=== PATIENT | male | born 1965 | race Caucasian/White ===

== ENCOUNTER 2017-02-17 15:16 | Inpatient (IN) | payer MEDICARE, MEDICAID ==
[2017-02-17 16:01] LABS: Urine Bilirubin Negative (Negative); Urine Glucose Negative (Negative); Urine Nitrite Negative (Negative)
[2017-02-17 16:11] LABS: Hematocrit 49 % (42-52); Hemoglobin 16.2 g/dl (14.0-18.0); Mean Corpuscular HGB Conc 33 g/dl (31-36); Mean Corpuscular Hemoglobin 30 pg (27-31); Mean Corpuscular Volume 91 fL (80-94); Mean Platelet Volume 8 um3 (7.4-10.4); Red Blood Count 5.35 10^6/ul (4.0-5.4); Red Cell Distribution Width 14 % (10.5-15); White Blood Count 8.1 10^3/ul (3.5-10.8)
[2017-02-17 16:27] LABS: ALT 40 U/L (7-52); AST 48 U/L (13-39); Albumin 4.6 g/dL (3.2-5.2); Alkaline Phosphatase 68 U/L (34-104); Anion Gap 9 mmol/L (2-11); BUN/Creatinine Ratio 7.8 (8-20); Blood Urea Nitrogen 5 mg/dL (6-24); CO2 Carbon Dioxide 21 mmol/L (22-32); Calcium 9.1 mg/dL (8.6-10.3); Chloride 105 mmol/L (101-111); EGFR African American 168.9 (>60); EGFR Non-African American 131.3 (>60); Globulin 2.5 g/dL (2-4); Glucose 135 mg/dL (70-100); Potassium 3.9 mmol/L (3.5-5.0); Sodium 135 mmol/L (133-145); Total Protein 7.1 g/dL (6.4-8.9)
[2017-02-17 17:24] LABS: Acetaminophen < 15 mcg/mL; Alcohol 298 mg/dL (<10); Salicylate < 2.50 mg/dL (<30)
[2017-02-17 17:34] LABS: TSH (Thyroid Stimulating Horm) 0.34 mcIU/mL (0.34-5.60)
--- NOTE | 2017-02-17 18:50 | ED ---
Adenike Faria Thomas, scribed for Gaston Dinero MD on 02/17/17 at 1544 . Psychiatric Complaint - HPI Summary HPI Summary: The pt is a 51 y/o M presenting to the ED accompanied by socially responsible investment adviser c/o SI without a plan. He reports auditory and visual hallucinations. He says that these voices are not telling him to hurt himself or others. He reports that he has consumed alcohol today. He denies HI. He is on medication for schizophrenia but he does not remember the names of his medication. PMHx: schizophrenia, COPD. PSHx: appendectomy. SHx: smoking, occasional drinking, all of the above illicit drugs. FHx: unknown (adopted). - History Of Current Complaint Chief Complaint: EDMentalHealth Time Seen by Provider: 02/17/17 15:38 Hx Obtained From: Patient, Other: - socially responsible investment adviser accompanies him Onset/Duration: Lasting Hours, Still Present Timing: Constant Character: Depressed Aggravating Factor(s): Nothing Alleviating Factor(s): Nothing Related History: Positive For: Prior Psychiatric Issues Has Suicidal: Reports: Thoughts. Denies: With A Plan Has Homicidal: Denies: Thoughts - Allergies/Home Medications Allergies/Adverse Reactions: Allergies Allergy/AdvReac Type Severity Reaction Status Date / Time No Known Allergies Allergy Verified 05/27/16 10:42 Home Medications: Home Medications [place] Carbonate TAB* 600 mg PO BID 02/17/17 [History Confirmed 02/17/17] Paliperidone SUSTENNA* [Invega Sustenna*] 156 mg IM MONTHLY 02/17/17 [History Confirmed 02/17/17] clonazePAM TAB(*) [KlonoPIN TAB(*)] 1 mg PO DAILY PRN 02/17/17 [History Confirmed 02/17/17] PMH/Surg Hx/FS Hx/Imm Hx Previously Healthy: No Cardiovascular History: Denies: Other Cardiovascular Problems/Disorders Respiratory History: Reports: Hx Chronic Obstructive Pulmonary Disease (COPD) Psychiatric History: Reports: Hx Schizophrenia - Surgical History Surgery Procedure, Year, and Place: appendectomy Infectious Disease History: Denies: Traveled Outside the [place] in Last 30 Days - Family History Known Family History: Positive: Unknown - adopted - Social History Alcohol Use: Occasionally Substance Use Type: Reports: Other - "all of the above" Hx Tobacco Use: Yes Smoking Status (MU): Heavy Every Day Tobacco Smoker Review of Systems Constitutional: Negative Negative: Fever Eyes: Negative ENT: Negative Cardiovascular: Negative Respiratory: Negative Gastrointestinal: Negative Genitourinary: Negative Musculoskeletal: Negative Skin: Negative Neurological: Negative Positive: Other - POS: SI without a plan, auditory hallucinations, visual hallucinations; NEG: HI All Other Systems Reviewed And Are Negative: Yes Physical Exam - Summary Physical Exam Summary: The patient is well-nourished in no acute distress and in no acute pain. The skin is warm and dry and skin color reflects adequate perfusion. There is an abrasion to his L [place]. HEENT: The head is normocephalic and atraumatic. The pupils are equal and reactive. The conjunctivae are clear and without drainage. Nares are patent and without drainage. Mouth reveals moist mucous membranes and the throat is without erythema and exudate. The external ears are intact. The teeth are in poor repair. Neck is supple with full range of motion and non-tender. There are no carotid bruits. There is no neck vein distension. Respiratory: Chest is non-tender. Lungs are clear to auscultation and breath sounds are symmetrical and equal. Cardiovascular: Hear is regular rate and rhythm. There is no murmur or rub auscultated. There is no peripheral edema and pulses are symmetrical and equal. Abdomen: The abdomen is soft and non-tender. Musculoskeletal: There is no back pain noted. Extremities are non-tender with full range of motion. There is good capillary refill. There is no peripheral edema or calf tenderness elicited.There is no evidence of trauma to arms. Neurological: Patient is alert and oriented to person, place and time. The patient has symmetrical motor strength in all four extremities. Psychiatric: He is depressed and suicidal. Triage Information Reviewed: Yes Vital Signs On Initial Exam: Initial Vitals Temp Pulse Resp BP Pulse Ox 98.9 F 102 20 133/94 95 02/17/17 15:20 02/17/17 15:20 02/17/17 15:20 02/17/17 15:20 02/17/17 15:20 Vital Signs Reviewed: Yes Diagnostics - Vital Signs Vital Signs Temp Pulse Resp BP Pulse Ox 02/17/17 15:20 98.9 F 102 20 133/94 95 - Laboratory Lab Results: Lab Results 02/17/17 02/17/17 02/17/17 Range/Units 15:40 15:55 15:55 WBC 8.1 (3.5-10.8) 10^3/ul RBC 5.35 (4.0-5.4) 10^6/ul Hgb 16.2 (14.0-18.0) g/dl Hct 49 (42-52) % MCV 91 (80-94) fL MCH 30 (27-31) pg MCHC 33 (31-36) g/dl RDW 14 (10.5-15) % Plt Count 220 (150-450) 10^3/ul MPV 8 (7.4-10.4) um3 Neut % (Auto) 60.2 (38-83) % Lymph % (Auto) 31.5 (25-47) % [place] % (Auto) 6.7 (1-9) % Eos % (Auto) 1.4 (0-6) % Baso % (Auto) 0.2 (0-2) % Absolute Neuts (auto) 4.9 (1.5-7.7) 10^3/ul Absolute Lymphs (auto) 2.5 (1.0-4.8) 10^3/ul Absolute Monos (auto) 0.5 (0-0.8) 10^3/ul Absolute Eos (auto) 0.1 (0-0.6) 10^3/ul Absolute Basos (auto) 0 (0-0.2) 10^3/ul Absolute Nucleated RBC 0.01 10^3/ul Nucleated RBC % 0.1 Sodium 135 (133-145) mmol/L Potassium 3.9 (3.5-5.0) mmol/L Chloride 105 (101-111) mmol/L Carbon Dioxide 21 L (22-32) mmol/L Anion Gap 9 (2-11) mmol/L BUN 5 L (6-24) mg/dL Creatinine 0.64 L (0.67-1.17) mg/dL Est GFR ( Amer) 168.9 (>60) Est GFR (Non-Af Amer) 131.3 (>60) BUN/Creatinine Ratio 7.8 L (8-20) Glucose 135 H (70-100) mg/dL Calcium 9.1 (8.6-10.3) mg/dL Total Bilirubin 0.60 (0.2-1.0) mg/dL AST 48 H (13-39) U/L ALT 40 (7-52) U/L Alkaline Phosphatase 68 (34-104) U/L Total Protein 7.1 (6.4-8.9) g/dL Albumin 4.6 (3.2-5.2) g/dL Globulin 2.5 (2-4) g/dL Albumin/Globulin Ratio 1.8 (1-3) TSH 0.34 (0.34-5.60) mcIU/mL Urine Color Straw Urine Appearance Clear Urine pH 6.0 (5-9) Ur Specific [place] 1.003 L (1.010-1.030) Urine Protein Negative (Negative) Urine Ketones Negative (Negative) Urine Blood Negative (Negative) Urine Nitrate Negative (Negative) Urine Bilirubin Negative (Negative) Urine Urobilinogen Negative (Negative) Ur Leukocyte Esterase Negative (Negative) Urine Glucose Negative (Negative) Salicylates < 2.50 (<30) mg/dL Acetaminophen < 15 mcg/mL Serum Alcohol 298 H (<10) mg/dL Result Diagrams: 02/17/17 15:55 02/17/17 15:55 Lab Statement: Any lab studies that have been ordered have been reviewed, and results considered in the medical decision making process. Course/Dx - Course Course Of Treatment: Cleared for MHE as of 23:59 02/17/2017. Assessment/Plan: The pt is a 51 y/o M presenting to the ED accompanied by socially responsible investment adviser c/o SI without a plan. He reports auditory and visual hallucinations. He says that these voices are not telling him to hurt himself or others. He reports that he has consumed alcohol today. He denies HI. He is on medication for schizophrenia but he does not remember the names of his medication. PMHx: schizophrenia, COPD. PSHx: appendectomy. SHx: smoking, occasional drinking, all of the above illicit drugs. FHx: unknown (adopted). Bloodwork shows serum alcohol 298, CO2 21, BUN 5, Creatinine 0.64, BUN/ Creatinine 7.8, Glucose 135, AST 48. UA is negative. Patient is diagnosed with acute alcohol intoxication and psychosis. He is cleared for MHE as of 23:59 08/05. Patient will be signed out pending MHE. - Differential Dx/Clinical Impression Differential Diagnosis/HQI/PQRI: Positive: Acute Psychosis, Alcohol Intoxication , Depression, Suicidal Ideation Provider Diagnosis: Acute alcohol intoxication, Psychosis Discharge - Discharge Plan Condition: Fair Disposition: OTHER Discharge Disposition Comment: Signed out from Dr. Dinero. Pending E. Referrals: Juan Espinoza MD [Primary Care Provider] - The documentation as recorded by the Adenike nation Thomas accurately reflects the service I personally performed and the decisions made by me, Gaston Dinero MD.
[2017-02-18] MEDS ORDERED: Acetaminophen TAB* 325 MG PO PRN (09:16)
[2017-02-18] MEDS ORDERED: Al Hydrox/Mg Hydrox/Simet LIQ* 30 ML UDC PO PRN (09:16)
[2017-02-18] MEDS ORDERED: hydrOXYzine HCL TAB* 50 MG PO PRN (09:17)
[2017-02-18 11:17] LABS: Benzodiazepine Urine Screen None Detected (None Detect)
--- NOTE | 2017-02-18 12:08 | HP ---
H&P (Free Text) History and Physical: HPI: ---- Patient is a 51yo male with PPHx significant for Bipolar 1 d/o, MRE mixed w/PFs r/o Schizoaffective d/o, Bipolar type MRE mixed who presented to the [facility] ED, escorted by his outpt SW from his MH provider's office after he reported worsening depressive symptoms, SI w/ plan to jump out in front of moving cars, and symptoms of thought insertion & delusional thinking. Patient reports noticing his mood dropping approximately 2 weeks ago. Patient reports no identifiable trigger and stated, "they come on their own". Patient reports dropping mood associated with poor energy, poor motivation, decreased attention to hygiene and to the cleanliness of his things. Patient reports decreased interest in things he normally enjoys, and social isolation. Patient also reports poor concentration and endorses that poor sleep is a chronic issue. Patient denies anger outbursts and anhedonia. Patient reports in association with this episode of depressive symptoms he also experiences "mystical ecstasy", which he describes as feeling elevated mood usually in association with music. He reports his mood can become expansive and euphoric while in a depressed state. Patient reports also associated with these episodes of mixed symptoms, experiences of delusional thought. Patient reports he naturally has a creative and imaginative mind, but during these episodes he believes "people turn into demons and angels". He also reports thoughts being inserted in his mind by these demons or angels which he identifies as not his own. He reports they usually send him on a "quest for my mother in the underworld". Patient reports his mother is there because she committed suicide. Patient reports hx of >5 suicide attempts, usually by cutting, last in 2011. Patient reports a long period of sobriety, which ended 1 week ago. He reports over the last 1 weeks he has drank 16-24 16oz beers daily. Patient reports a hx of severe alcohol use d/o symptoms, drinking daily, associated with DUI in 1999, and 10 inpatient SATPs. Patient reports last drinking on a daily basis over 3yrs ago. Patient reports hx of DTs. Patient denies hx of alcohol w/d seizure. Patient reports he has been compliant with monthly NUNO Invega Sustenna. Currently on 156mg IM qMonthly, last given on 01/21/17. Patient reports he has been non-compliant with his rx'd Lillie 600mg po BID x 2 months. He reports feeling he was getting no benefit. Patient though is willing to start a re-trial of Lillie at 450mg po BID. Patient is amenable to Invega Sustenna NUNO at increased dose from 156mg to 234mg. His next injection was due on 02/17/17 per [facility] for Dr. Huber. Will order for tomorrow. Patient denies Alcohol w/d symptoms. He currently denies SI/HI and AH/VH. Past Psych Hx: Inpt - Patient reports hx of >5 inpatient psychiatric hospitalizations Outpt - Patient is seen by Dr. Huber at [facility] Dx - Schizophrenia, Alcohol use d/o Psychotropic med hx - Lillie(currently on 600mg po BID, reports non-compliance ), Depakote(reports hx of no benfit), Invega Sustenna(currently on 156mg IM, last given on 01/21/17) Suicide attempt Hx / SIB Hx: -Patient reports >5 suicide attempts, most by cutting, last in 2011. -Patient denies hx of SIB. Trauma Hx: -Patient denies hx of childhood emotional, physical, and sexual abuse Substance Hx: -Patient reports recent alcohol use d/o symptoms. He reports over the last 1 weeks he has drank 16-24 16oz beers daily. -Patient reports a hx of severe alcohol use d/o symptoms, drinking daily, associated with DUI in 1999, and 10 inpatient SATPs. -Patient reports last drinking on a daily basis over 3yrs ago. -Patient reports hx of DTs. -Patient denies hx of alcohol w/d seizure. -Patient denies use of illicit substances. Medical Hx: COPD Surgical Hx: Appendectomy Allergies: --------- NKDA Family Hx: Patient reports he was adopted at age 1yo after he and his siblings were given up. Patient has no knowledge of his father's MH or HIMANSHU hx. He has no knowledge of his father's side of the family. Patient reports his mother committed suicide in her 40's by hanging. Patient reports many family members on his mother's side deal with depression and anxiety symptoms. Patient reports no knowledge of other family members who have committed suicide. 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 He's lived there since 09/2016 -Patient denies access to firearms -Patient denies stockpiles of old Rx pills at home Home medications: Home Medications Medication Instructions Recorded Confirmed Type [place] Carbonate TAB* 600 mg PO BID 02/17/17 02/17/17 History Paliperidone SUSTENNA* [Invega 156 mg IM MONTHLY 02/17/17 02/17/17 History Sustenna*] clonazePAM TAB(*) [KlonoPIN TAB(*)] 1 mg PO DAILY PRN 02/17/17 02/17/17 History VITALS: 02/17/17 02/17/17 02/18/17 15:20 16:29 01:09 Temperature 98.9 F 97.6 F 100.5 F Pulse Rate 102 92 101 Respiratory 20 16 16 Rate Blood Pressure 133/94 126/74 113/69 (mmHg) O2 Sat by Pulse 95 92 93 Oximetry 02/18/17 02/18/17 10:54 12:14 Temperature 98.8 F Pulse Rate 56 Respiratory 16 16 Rate Blood Pressure 122/74 (mmHg) O2 Sat by Pulse 97 Oximetry LABS: ----- Laboratory Tests 02/17/17 02/17/17 02/17/17 15:40 15:55 15:55 WBC 8.1 RBC 5.35 Hgb 16.2 Hct 49 MCV 91 MCH 30 MCHC 33 RDW 14 Plt Count 220 MPV 8 Neut % (Auto) 60.2 Lymph % (Auto) 31.5 [place] % (Auto) 6.7 Eos % (Auto) 1.4 Baso % (Auto) 0.2 Absolute Neuts (auto) 4.9 Absolute Lymphs (auto) 2.5 Absolute Monos (auto) 0.5 Absolute Eos (auto) 0.1 Absolute Basos (auto) 0 Absolute Nucleated RBC 0.01 Nucleated RBC % 0.1 Sodium 135 Potassium 3.9 Chloride 105 Carbon Dioxide 21 L Anion Gap 9 BUN 5 L Creatinine 0.64 L Est GFR ( Amer) 168.9 Est GFR (Non-Af Amer) 131.3 BUN/Creatinine Ratio 7.8 L Glucose 135 H Calcium 9.1 Total Bilirubin 0.60 AST 48 H ALT 40 Alkaline Phosphatase 68 Total Protein 7.1 Albumin 4.6 Globulin 2.5 Albumin/Globulin Ratio 1.8 TSH 0.34 Urine Color Straw Urine Appearance Clear Urine pH 6.0 Ur Specific [place] 1.003 L Urine Protein Negative Urine Ketones Negative Urine Blood Negative Urine Nitrate Negative Urine Bilirubin Negative Urine Urobilinogen Negative Ur Leukocyte Esterase Negative Urine Glucose Negative Salicylates < 2.50 Urine Opiates Screen Acetaminophen < 15 Ur Barbiturates Screen Ur Phencyclidine Scrn Ur Amphetamines Screen U Benzodiazepines Scrn Urine Cocaine Screen U Cannabinoids Screen Serum Alcohol 298 H 02/18/17 10:21 WBC RBC Hgb Hct MCV MCH MCHC RDW Plt Count MPV Neut % (Auto) Lymph % (Auto) [place] % (Auto) Eos % (Auto) Baso % (Auto) Absolute Neuts (auto) Absolute Lymphs (auto) Absolute Monos (auto) Absolute Eos (auto) Absolute Basos (auto) Absolute Nucleated RBC Nucleated RBC % Sodium Potassium Chloride Carbon Dioxide Anion Gap BUN Creatinine Est GFR ( Amer) Est GFR (Non-Af Amer) BUN/Creatinine Ratio Glucose Calcium Total Bilirubin AST ALT Alkaline Phosphatase Total Protein Albumin Globulin Albumin/Globulin Ratio TSH Urine Color Urine Appearance Urine pH Ur Specific [place] Urine Protein Urine Ketones Urine Blood Urine Nitrate Urine Bilirubin Urine Urobilinogen Ur Leukocyte Esterase Urine Glucose Salicylates Urine Opiates Screen None detected Acetaminophen Ur Barbiturates Screen None detected Ur Phencyclidine Scrn None detected Ur Amphetamines Screen None detected U Benzodiazepines Scrn None detected Urine Cocaine Screen None detected U Cannabinoids Screen None detected Serum Alcohol PHYSICAL EXAM: GEN - in NAD, looks stated age, thin, long ren hair and lizarraga. HEENT - NC/AT, EOEMI, no lesions or discharge noted, conjunctivae clear NECK - supple, no JVD, no LAD, CARDIAC - S1/S2, no discernable murmurs ABD - (+) BS x 4 quad, non-tender EXT - no edema, no lesions MUSCULOSKEL - 5/5 muscle strength in all extremities SKIN - intact, no lesions NEURO - CN 2-12, steady gait MSE: ----- Appearance -thin build male, looks older than stated age, long ren hair and lizarraga, fair hygeine, in NAD Behavior - calm, cooperative Speech - RRR, prosody wnl Eye Contact - good Mood - "anxious" Affect - depressed TP - linear and GD TC - concerned with worsening depression and psychotic symptoms Perception - Patient denies AH/VH. He endorses (+) thought insertion and delusional thinking Orientation - A&Ox3 Cognition - intact Insight - poor Judgement - poor SI / HI - present on admission, currently denies both ASSESSMENT: 1. Bipolar 1 d/o, MRE mixed w/PFs r/o Schizoaffective d/o, Bipolar type MRE mixed PLAN: ------ 1. Continue admission to [facility] for safety and symptom mx. 2. Continue Lillie, but a lower dose of 450mg po BID due to patient's reports of med non-compliance over the last 2 months. 3. Continue Invega Sustenna NUNO at increased dose from 156mg to 234mg, with next injection due due on 02/17/17 and qMonthly. Will order for tomorrow. 4. Continue compiling collateral information from MH providers and [facility] staff. 5. Patient to participate in milieu activities and groups.
[2017-02-18 13:16] LABS: Lithium < 0.10 mmol/L (0.6-1.2)
[2017-02-18] MEDS: Lithium Carbonate ER* 450 MG TAB.ER PO SCH (20:35)
[2017-02-18] MEDS ORDERED: Lithium Carbonate TAB* 300 MG PO SCH (21:00)
[2017-02-19] MEDS ORDERED: Paliperidone SUSTENNA* 234 MG/1.5 ML IM ONE (09:00)
[2017-02-19] MEDS: Lithium Carbonate ER* 450 MG TAB.ER PO SCH ×2 (09:38→20:42)
[2017-02-19] MEDS ORDERED: Acetaminophen TAB* 325 MG PO PRN (10:28)
[2017-02-19] MEDS ORDERED: Thiamine IV* 100 MG/ML 2 ML VIAL IM ONE (10:28)
--- NOTE | 2017-02-19 11:53 | PN ---
MHU: Group Therapy Note - Service Type Service Type: [id number] Group Psychotherapy - Cognitive Behavioral Group Therapy ( CBT):Patient was attentive and participatory in CBT programming this morning, and remained in good behavioral control. Patient expressed positive insights regarding relevant treatment interventions and goals.
--- NOTE | 2017-02-19 11:56 | RAD ---
INDICATION: Fever COMPARISON: Similar chest x-ray dated March 07, 2016 TECHNIQUE: PA and lateral views of the chest were obtained. FINDINGS: The heart and mediastinum are normal in size and contour. The lungs are grossly clear. There is no evidence of large pleural effusion. Visualized bones are normal for the patient's age. There is no radiographic evidence of free air beneath the diaphragm IMPRESSION: No radiographic evidence of acute cardiopulmonary disease.
[2017-02-19] MEDS ORDERED: LORazepam TAB(*) 1 MG PO ONE (12:03)
--- NOTE | 2017-02-19 12:13 | PN ---
Subjective - Subjective Service Type: [id number] Hosp care 25 min moderate complexity Subjective: Patient noted to be calm, sitting alone in the milieu. He is cooperative and engages the interview. Patient is A&O x3, linear and GD in TP and noted to be very insightful about the pattern of his bipolar symptoms. Patient reports his mood continues to be "dark". He reports being in "emotional pain". He is aware that his affect is observed to be full and his speech rapid/over productive at times. He reports this is the nature of his depression. He again reported being in "emotional dispair". He stated, "I can't find a good reason for it". He reports while in the hospital he is more focused on his depression as in "nature" he can find "ecstasy". He stated, "there is no ecstasy in here". Patient reports his periods of "ecstasy" are usually associated with music or nature. He reports these are "enhanced with alcohol". Patient is aware alcohol is a depressant and reports his highs are higher, but his lows are lower. He reports his delusions start when he gets too low. Patient reports again daily use of alcohol for the last 1 week, prior to this last week, he reports drinking 1 day a week for the prior 2 months, and sobriety of a few months before that. Patient asked about his hx of DTs. He reported 1 episode of DTs. He described it occurring after drinking 16-24 beers daily for >4months. He reported at 1-2 days after stopping alcohol, he was going to be allowed to discharge, as he was not sweating, tremulous, or agitated. He reports a "smart doctor" noted his vitals and started him on Ativan. He reports though within 24hrs he was in DTs, agitated(requiring restraint) and experiencing VHs of bugs on the michelle and THs of bugs crawling on him. He reports being in the ICU after. Today patient reports some mild sweating under his arms and on his brow. He reports he is able to mask his anxiety, stating, "I've been dealing with this for so long". He reports significant anxiety and agitation. He reports he is ready to "go off at any time". He was informed his BP and HR were wnl, but he did have a mild fever and his NUNO would be held until an eval for FUO could be done. He is amenable to the Cxray. He is also amenable to WAM monitoring and a 1 time dose of Ativan. Patient denies RAMIREZ, CP, and Abd pain. Again he is A&Ox3 with linear in TP, insightful and rational. Patient endorses ongoing delusional thought which is distressing. He denies SI/HI and AH. He does report VH and TH of bugs crawling on him, but reports they are like shadows in his periphery which when he inspects, he realizes they are not bugs. Objective - Appearance Appearance: Thin Framed Dysmorphic Features: No Hygiene: Normal Grooming: Fairly Well Kept - Behavior Psychomotor Activities: Normal Exhibits Abnormal Movement: No - Attitude and Relatedness Attitude and Relatedness: Cooperative Eye Contact: Good - Speech Quality: Unpressured Latencies: Normal Quantity: Copious - Mood Patient's Decription of Mood: "Anxious" - Affect Observed Affect: Good Affect Consistent with: Euthymia - Thought Process Patient's Thought Process: Coherent Thought Content: Yes Paranoid Ideation, No Passive Wish, No Suicidal Planning, No Homicidal Ideation - Sensorium Experiencing Hallucinations: No, Sensorium is Clear Type of Hallucinations: Visual: No, Auditory: No, Command: No - Level of Consciousness Level of Consciousness: Alert Orientation: Yes Intact, Yes Orientated to Time, Yes Orientated to Place, Yes Orientated to Person - Impulse Control Impulse Control: Intact - Insight and Judgement Insight and Judgement: Good - Group Participation Particating in Group Activities: Yes - Medication Management Medication Management Adherence: Yes Assessment - Assessment Merits Inpatient Hospitalization: For Immediate Safety, For Stabilization Inpatient DSM-IV Dx: 1. Bipolar 1 d/o MRE mixed w/PFs. 2. Alcohol use d/o, severe Plan - Plan Treatment Plan: Name: ROSE LUIS Birthdate: 1965 [id number] 1. Continue admission to [facility] for safety and symptom mx. 2. Continue [place] 450mg po BID for mood stabilization. 3. Invega Sustenna 234mg held today due to w/d symptoms. Will monitor on WAM x 24hrs and consider Thursday PM administration. 4. Connect patient with oupt. alcohol treatment program post-discharge. 5. Continue compiling collateral information from MH providers and [facility] staff. 6. Patient to participate in milieu activities and groups. Continued Medication Management: Start Medication Medications: Current Medications Acetaminophen (Tylenol Tab*) 650 mg PO Q4H PRN PRN Reason: for pain; or Temp >101 F Last Admin: 02/19/17 09:39 Dose: 650 mg Al Hydrox/Mg Hydrox/Simethicone (Maalox Plus*) 30 ml PO Q4H PRN PRN Reason: INDIGESTION Folic Acid (Folvite Tab*) 1 mg PO DAILY [facility] Hydroxyzine HCl (Atarax Tab*) 50 mg PO Q6H PRN PRN Reason: AGITATION/ANXIETY/INSOMNIA [place] Carbonate ([place] Carbonate Er Tab*) 450 mg PO BID LETTY Last Admin: 02/19/17 09:38 Dose: 450 mg Lorazepam (Ativan Tab(*)) 0 - 6 mg PO .[facility] PROTOCOL LETTY PRN Reason: Protocol Lorazepam (Ativan Tab(*)) 2 mg PO ONCE ONE Stop: 02/19/17 12:04 Multivitamins/Minerals (Theragran/Minerals Tab*) 1 tab PO DAILY [facility] Thiamine HCl (Vitamin B-1 Tab*) 100 mg PO DAILY LETTY - Discharge Plan Discharge Plan: Drug/Alcohol Rehab Outpatient Program: [facility]
[2017-02-19] MEDS ORDERED: LORazepam TAB(*) 1 MG PO SCH (13:00)
[2017-02-20] MEDS: Thiamine TAB* 100 MG TAB PO SCH (08:31)
[2017-02-20] MEDS: Lithium Carbonate ER* 450 MG TAB.ER PO SCH ×2 (08:31→20:51)
[2017-02-20] MEDS: Multivitamins/Minerals TAB PO SCH (08:31)
[2017-02-20] MEDS: Folic Acid TAB* 1 MG PO SCH (08:32)
--- NOTE | 2017-02-20 10:22 | PN ---
Subjective - Subjective Service Type: 13439 Hosp care 15 min low complexity Subjective: Patient lying in bed on my approach. He continues to be linear and GD in TP. He continues to be insightful regarding the course of his bipolar and alcohol w/d symptoms. He is though more easily agitated this morning. He was noted to have become belligerent with staff last night after scoring too low on WAM assessment to receive an Ativan dose. Patient refused WAM assessments after that exchange and has submitted request to discharge. Patient denies RAMIREZ, CP, Ad pain. He reports improved sleep last night. He denies AH,VH,TH. He denies SI/HI. Patient does report ongoing depression and ongoing delusional thoughts noted on admission. Patient allowed re-start of WAM monitoring. He did not score, but reported diarrhea. He was informed WAM would be discontinued, PRN loperamide would be started, and his scheduled IM Invega sustenna injection would be administered today as he seems to be out of w/d and risk of developing DTs. Patient is amenable. Patient is aware he will be staying the weekend for monitoring of mood and delusions. He is aware PRN Ativan is ordered. Objective - Appearance Appearance: Well Developed/Nourished, Thin Framed Dysmorphic Features: No Hygiene: Normal Grooming: Fairly Well Kept - Behavior Psychomotor Activities: Normal Exhibits Abnormal Movement: No - Attitude and Relatedness Attitude and Relatedness: Cooperative Eye Contact: Fair - Speech Quality: Unpressured Latencies: Normal Quantity: Copious - Mood Patient's Decription of Mood: "Upset" - Affect Observed Affect: Tense Affect Consistent with: Dysphoria - Thought Process Patient's Thought Process: Coherent Thought Content: No Passive Wish, No Suicidal Planning, No Homicidal Ideation, No Paranoid Ideation - Sensorium Experiencing Hallucinations: No, Sensorium is Clear Type of Hallucinations: Visual: No, Auditory: No, Command: No - Level of Consciousness Level of Consciousness: Alert Orientation: Yes Intact, Yes Orientated to Time, Yes Orientated to Place, Yes Orientated to Person - Impulse Control Impulse Control: Intact - Insight and Judgement Insight and Judgement: Fair - Group Participation Particating in Group Activities: Yes - Medication Management Medication Management Adherence: Yes Assessment - Assessment Merits Inpatient Hospitalization: For Immediate Safety, For Stabilization Inpatient DSM-IV Dx: 1. Bipolar 1 d/o MRE mixed w/PFs. 2. Alcohol use d/o, severe Plan - Plan Treatment Plan: Name: ROSE LUIS Birthdate: 1965 [id number] 1. Continue admission to [facility] for safety and symptom mx. 2. Continue [place] 450mg po BID for mood stabilization. 3. Will D/C WAM due to lack of scoring and reports of no w/d symptoms outside of loose stools. 4. Will start Loperamide 2mg PRN for loose stools. 5. Will administer Invega Sustenna 234mg IM today for psychosis as patient is out of w/d. 6. Will order PRN Ativan 1mg po BID PRN anxiety. 7. Connect patient with oupt. alcohol treatment program post-discharge. 8. Continue compiling collateral information from MH providers and [facility] staff. 9. Patient to participate in milieu activities and groups. Medications: Current Medications Acetaminophen (Tylenol Tab*) 650 mg PO Q4H PRN PRN Reason: for pain; or Temp >101 F Last Admin: 02/19/17 09:39 Dose: 650 mg Al Hydrox/Mg Hydrox/Simethicone (Maalox Plus*) 30 ml PO Q4H PRN PRN Reason: INDIGESTION Folic Acid (Folvite Tab*) 1 mg PO DAILY [facility] Last Admin: 02/20/17 08:32 Dose: Not Given Hydroxyzine HCl (Atarax Tab*) 50 mg PO Q6H PRN PRN Reason: AGITATION/ANXIETY/INSOMNIA [place] Carbonate ([place] Carbonate Er Tab*) 450 mg PO BID [facility] Last Admin: 02/20/17 08:31 Dose: 450 mg Lorazepam (Ativan Tab(*)) 0 - 6 mg PO .PER [place] PROTOCOL [place]TY PRN Reason: Protocol Multivitamins/Minerals (Theragran/Minerals Tab*) 1 tab PO DAILY [facility] Last Admin: 02/20/17 08:31 Dose: Not Given Thiamine HCl (Vitamin B-1 Tab*) 100 mg PO DAILY [facility] Last Admin: 02/20/17 08:31 Dose: Not Given - Discharge Plan Discharge Plan: Drug/Alcohol Rehab Outpatient Program: [facility]
[2017-02-20] MEDS ORDERED: LORazepam TAB(*) 1 MG PO ONE ×2 (10:23→16:31)
[2017-02-20] MEDS ORDERED: LORazepam TAB(*) 1 MG PO PRN (10:24)
[2017-02-20] MEDS ORDERED: Paliperidone SUSTENNA* 234 MG/1.5 ML IM ONE (10:25)
[2017-02-20] MEDS: Loperamide CAP* 2 MG PO PRN (20:53)
[2017-02-20] MEDS: LORazepam TAB(*) 1 MG PO PRN (21:27)
[2017-02-21] MEDS: LORazepam TAB(*) 1 MG PO PRN ×2 (07:43→19:27)
[2017-02-21] MEDS: Multivitamins/Minerals TAB PO SCH (08:57)
[2017-02-21] MEDS: Folic Acid TAB* 1 MG PO SCH (08:57)
[2017-02-21] MEDS: Lithium Carbonate ER* 450 MG TAB.ER PO SCH ×2 (08:57→20:51)
[2017-02-21] MEDS: Thiamine TAB* 100 MG TAB PO SCH (08:58)
[2017-02-21] MEDS: Loperamide CAP* 2 MG PO PRN (08:59)
[2017-02-22] MEDS: LORazepam TAB(*) 1 MG PO PRN ×2 (08:50→18:53)
[2017-02-22] MEDS: Folic Acid TAB* 1 MG PO SCH (08:51)
[2017-02-22] MEDS: Multivitamins/Minerals TAB PO SCH (08:51)
[2017-02-22] MEDS: Lithium Carbonate ER* 450 MG TAB.ER PO SCH ×2 (08:51→20:34)
[2017-02-22] MEDS: Thiamine TAB* 100 MG TAB PO SCH (08:51)
--- NOTE | 2017-02-22 13:30 | PN ---
Subjective - Subjective Service Type: 68327 Hosp care 15 min low complexity Subjective: Len reports that he is doing much better and redy to go back to [place]. Denies hallucinations, paranoia or SI/HI. Stays to self most of the time. Per staffs Len hasn't been problem on the unit. Personal hygiene and grooming continues to be an issue. Objective - Appearance Appearance: Healthy Appearing Dysmorphic Features: No Hygiene: Mal-odorous Grooming: Disheveled - Behavior Psychomotor Activities: Normal Exhibits Abnormal Movement: No - Attitude and Relatedness Attitude and Relatedness: Appropriate Eye Contact: Fair - Speech Quality: Unpressured Latencies: Normal Quantity: Terse - Mood Patient's Decription of Mood: "Okay" - Affect Observed Affect: Constricted Affect Consistent with: Dysphoria - Thought Process Patient's Thought Process: Coherent, Circumstantial Thought Content: No Passive Wish, No Suicidal Planning, No Homicidal Ideation, No Paranoid Ideation - Sensorium Experiencing Hallucinations: No, Sensorium is Clear Type of Hallucinations: Visual: No, Auditory: No, Command: No - Level of Consciousness Level of Consciousness: Alert Orientation: Yes Intact, Yes Orientated to Time, Yes Orientated to Place, Yes Orientated to Person - Impulse Control Impulse Control: Intact - Insight and Judgement Insight and Judgement: Fair - Group Participation Particating in Group Activities: No - Medication Management Medication Management Adherence: Yes Assessment - Assessment Merits Inpatient Hospitalization: Pending Safe DC Plan Inpatient DSM-IV Dx: 1. Bipolar 1 d/o MRE mixed w/PFs. 2. Alcohol use d/o, severe Plan - Plan Treatment Plan: Name: LEN LUIS Birthdate: 1965 [id number] Medications: Current Medications Acetaminophen (Tylenol Tab*) 650 mg PO Q4H PRN PRN Reason: for pain; or Temp >101 F Last Admin: 02/19/17 09:39 Dose: 650 mg Al Hydrox/Mg Hydrox/Simethicone (Maalox Plus*) 30 ml PO Q4H PRN PRN Reason: INDIGESTION Folic Acid (Folvite Tab*) 1 mg PO DAILY [facility] Last Admin: 02/22/17 08:51 Dose: 1 mg Hydroxyzine HCl (Atarax Tab*) 50 mg PO Q6H PRN PRN Reason: AGITATION/ANXIETY/INSOMNIA [place] Carbonate ([place] Carbonate Er Tab*) 450 mg PO BID [facility] Last Admin: 02/22/17 08:51 Dose: 450 mg Loperamide HCl (Imodium Cap*) 2 mg PO .SEE DIRECTIONS PRN PRN Reason: DIARRHEA Last Admin: 02/21/17 08:59 Dose: 2 mg Lorazepam (Ativan Tab(*)) 2 mg PO BID PRN PRN Reason: ANXIETY Last Admin: 02/22/17 08:50 Dose: 2 mg Multivitamins/Minerals (Theragran/Minerals Tab*) 1 tab PO DAILY [facility] Last Admin: 02/22/17 08:51 Dose: 1 tab Thiamine HCl (Vitamin B-1 Tab*) 100 mg PO DAILY [facility] Last Admin: 02/22/17 08:51 Dose: 100 mg - Discharge Plan Discharge Plan: Outpatient Follow Up Outpatient Program: [facility]
[2017-02-23] MEDS: LORazepam TAB(*) 1 MG PO PRN (06:37)
[2017-02-23 08:20] VITALS: BP 117/74
[2017-02-23] MEDS: Lithium Carbonate ER* 450 MG TAB.ER PO SCH (09:11)
[2017-02-23] MEDS: Multivitamins/Minerals TAB PO SCH (09:11)
[2017-02-23] MEDS: Folic Acid TAB* 1 MG PO SCH (09:11)
[2017-02-23] MEDS: Thiamine TAB* 100 MG TAB PO SCH (09:11)
--- NOTE | 2017-02-23 14:24 | DS ---
Subjective - Subjective Service Types: [id number] Hosp DC Day Mgmt simple under 30 min Treatment Course & Assessment Inpatient DSM-IV Dx: 1. Bipolar 1 d/o MRE mixed w/PFs. 2. Alcohol use d/o, severe Discharge Planning - Discharge Planning Medications: Current Medications Acetaminophen (Tylenol Tab*) 650 mg PO Q4H PRN PRN Reason: for pain; or Temp >101 F Last Admin: 02/19/17 09:39 Dose: 650 mg Al Hydrox/Mg Hydrox/Simethicone (Maalox Plus*) 30 ml PO Q4H PRN PRN Reason: INDIGESTION Folic Acid (Folvite Tab*) 1 mg PO DAILY [facility] Last Admin: 02/23/17 09:11 Dose: 1 mg Hydroxyzine HCl (Atarax Tab*) 50 mg PO Q6H PRN PRN Reason: AGITATION/ANXIETY/INSOMNIA Last Admin: 02/23/17 06:38 Dose: 50 mg [place] Carbonate ([place] Carbonate Er Tab*) 450 mg PO BID [facility] Last Admin: 02/23/17 09:11 Dose: 450 mg Loperamide HCl (Imodium Cap*) 2 mg PO .SEE DIRECTIONS PRN PRN Reason: DIARRHEA Last Admin: 02/21/17 08:59 Dose: 2 mg Lorazepam (Ativan Tab(*)) 2 mg PO BID PRN PRN Reason: ANXIETY Last Admin: 02/23/17 06:37 Dose: 2 mg Multivitamins/Minerals (Theragran/Minerals Tab*) 1 tab PO DAILY [facility] Last Admin: 02/23/17 09:11 Dose: 1 tab Thiamine HCl (Vitamin B-1 Tab*) 100 mg PO DAILY [facility] Last Admin: 02/23/17 09:11 Dose: 100 mg Discharge Planning: Prescriptions provided for discharge [] Yes [] No Follow up care details as per social work arrangements. Patient response to discharge plan: [] eager for discharge [] agreeable with discharge plan [] ambivalent about discharge [] disagrees with discharge today
== END 2017-02-23 12:55 | disposition home or self-care (01) | DRG 885 ==
LOC: ED 15:16 → BSU 02-18 09:16
PROVIDERS: ADMIT Psychiatry & Neurology Psychiatry; ATTEND Psychiatry & Neurology Psychiatry
DX: F31.64 Bipolar disorder, current episode mixed, severe, with psychotic features (principal); R45.851 Suicidal ideations; F10.10 Alcohol abuse, uncomplicated; J44.9 Chronic obstructive pulmonary disease, unspecified; Z81.8 Family history of other mental and behavioral disorders
CPT/HCPCS: 36415; 71020; 80053; 80178; 80307; 80320; 80329; 81003; 84443; 85025; 87205; 90853; 99222; 99231; 99232; A9270-GY; G0480

== ENCOUNTER 2017-05-28 12:21 | Inpatient (IN) | payer MEDICARE, MEDICAID ==
[2017-05-28 13:56] LABS: Hematocrit 45 % (42-52); Hemoglobin 15.3 g/dl (14.0-18.0); Mean Corpuscular HGB Conc 34 g/dl (31-36); Mean Corpuscular Hemoglobin 31 pg (27-31); Mean Corpuscular Volume 90 fL (80-94); Mean Platelet Volume 8 um3 (7.4-10.4); Red Cell Distribution Width 14 % (10.5-15); White Blood Count 15.6 10^3/ul (3.5-10.8)
[2017-05-28 13:59] LABS: Urine Bilirubin Negative (Negative); Urine Glucose Negative (Negative); Urine Nitrite Negative (Negative)
[2017-05-28 14:11] LABS: ALT 15 U/L (7-52); AST 22 U/L (13-39); Albumin 4.7 g/dL (3.2-5.2); Alkaline Phosphatase 66 U/L (34-104); Anion Gap 7 mmol/L (2-11); BUN/Creatinine Ratio 11.5 (8-20); Blood Urea Nitrogen 7 mg/dL (6-24); CO2 Carbon Dioxide 23 mmol/L (22-32); Calcium 10.2 mg/dL (8.6-10.3); Chloride 106 mmol/L (101-111); EGFR African American 178.5 (>60); EGFR Non-African American 138.8 (>60); Globulin 2.5 g/dL (2-4); Glucose 128 mg/dL (70-100); Potassium 4.1 mmol/L (3.5-5.0); Sodium 136 mmol/L (133-145); Total Protein 7.2 g/dL (6.4-8.9)
[2017-05-28 14:13] LABS: Acetaminophen < 15 mcg/mL; Alcohol < 10 mg/dL (<10); Lithium 0.49 mmol/L (0.6-1.2); Salicylate < 2.50 mg/dL (<30)
[2017-05-28 14:14] LABS: Benzodiazepine Urine Screen None Detected (None Detect)
[2017-05-28 14:26] LABS: TSH (Thyroid Stimulating Horm) 1.45 mcIU/mL (0.34-5.60)
[2017-05-28] MEDS ORDERED: Acetaminophen TAB* 325 MG PO PRN (14:34)
[2017-05-28] MEDS ORDERED: Al Hydrox/Mg Hydrox/Simet LIQ* 30 ML UDC PO PRN (14:34)
[2017-05-28] MEDS ORDERED: Paliperidone SUSTENNA* 234 MG/1.5 ML IM ONE (16:00)
[2017-05-28] MEDS: Lithium Carbonate ER* 450 MG TAB.ER PO SCH (20:54)
[2017-05-28] MEDS: Nicotine Patch Removal NOTE PATCH OFF SCH (20:55)
--- NOTE | 2017-05-28 21:08 | ED ---
George Faria Alfonso, scribed for Ray Hernandez MD on 05/28/17 at 1328 . Psychiatric Complaint - HPI Summary HPI Summary: This patient is a 51 year old M BIBA 945 to [facility] referred from [facility] with a chief complaint of SI worse since earlier today. The patient rates the pain 0/ 10 in severity. Symptoms alleviated by nothing. Patient reports depression. - History Of Current Complaint Chief Complaint: [facility]entalHealth Time Seen by Provider: 05/28/17 13:18 Hx Obtained From: Patient Onset/Duration: Gradual Onset, Still Present, Worse Since - earlier today Timing: Constant Character: Depressed Alleviating Factor(s): Nothing Has Suicidal: Reports: Thoughts - Allergies/Home Medications Allergies/Adverse Reactions: Allergies Allergy/AdvReac Type Severity Reaction Status Date / Time No Known Allergies Allergy Verified 02/18/17 17:27 Home Medications: Home Medications LORazepam TAB(*) [Ativan 1 MG TAB (*)] 2 mg PO BID PRN 05/28/17 [History Confirmed 05/28/17] Paliperidone SUSTENNA* [Invega Sustenna*] 234 mg IM MONTHLY 05/28/17 [History Confirmed 05/28/17] PMH/Surg Hx/FS Hx/Imm Hx Cardiovascular History: Denies: Other Cardiovascular Problems/Disorders Respiratory History: Reports: Hx Asthma, Hx Chronic Obstructive Pulmonary Disease (COPD) Sensory History: Reports: Hx Contacts or Glasses Denies: Hx Hearing Aid Opthamlomology History: Reports: Hx Contacts or Glasses EENT History: Denies: Hx Deafness Psychiatric History: Reports: Hx Depression, Hx Inpatient Treatment, Hx Community Mental Health Tx, Hx Schizophrenia, Hx Suicide Attempt, Other Psychiatric Issues/Disorders - Schizoaffective Denies: Hx Eating Disorder, Hx of Violent Episodes Against Others - Surgical History Surgery Procedure, Year, and Place: appendectomy Infectious Disease History: No Infectious Disease History: Denies: Traveled Outside the [place] in Last 30 Days - Family History Known Family History: Positive: Unknown - adopted - Social History Alcohol Use: Daily Alcohol Amount: states last drink was a "long time ago" Substance Use Type: Reports: None Hx Tobacco Use: Yes Smoking Status (MU): Heavy Every Day Tobacco Smoker Type: Cigarettes Amount Used/How Often: More than 5 daily Review of Systems Negative: Fever Neurological: Other - SI Positive: Depressed All Other Systems Reviewed And Are Negative: Yes Physical Exam - Summary Physical Exam Summary: General: well-appearing, no pain distress Skin: warm, color reflects adequate perfusion, dry Head: normal Eyes: EOMI, YONG ENT: normal Neck: supple, nontender Respiratory: CTA, breath sounds present Cardiovascular: RRR Abdomen: soft, nontender Bowel: present Musculoskeletal: normal, strength/ROM intact Neurological: normal, sensory/motor intact, A&O x3 Psychological: Slightly withdrawn Triage Information Reviewed: Yes Vital Signs On Initial Exam: Initial Vitals Temp Pulse Resp BP Pulse Ox 99.6 F 100 20 124/83 96 05/28/17 13:19 05/28/17 13:19 05/28/17 13:19 05/28/17 13:19 05/28/17 13:19 Vital Signs Reviewed: Yes Diagnostics - Vital Signs Vital Signs Temp Pulse Resp BP Pulse Ox 05/28/17 13:19 99.6 F 100 20 124/83 96 - Laboratory Lab Results: Lab Results 05/28/17 05/28/17 05/28/17 Range/Units 13:37 13:37 13:37 WBC 15.6 H (3.5-10.8) 10^3/ul RBC 5.00 (4.0-5.4) 10^6/ul Hgb 15.3 (14.0-18.0) g/dl Hct 45 (42-52) % MCV 90 (80-94) fL MCH 31 (27-31) pg MCHC 34 (31-36) g/dl RDW 14 (10.5-15) % Plt Count 278 (150-450) 10^3/ul MPV 8 (7.4-10.4) um3 Neut % (Auto) 84.3 H (38-83) % Lymph % (Auto) 7.0 L (25-47) % [place] % (Auto) 7.6 (1-9) % Eos % (Auto) 0.1 (0-6) % Baso % (Auto) 1.0 (0-2) % Absolute Neuts (auto) 13.2 H (1.5-7.7) 10^3/ul Absolute Lymphs (auto) 1.1 (1.0-4.8) 10^3/ul Absolute Monos (auto) 1.2 H (0-0.8) 10^3/ul Absolute Eos (auto) 0 (0-0.6) 10^3/ul Absolute Basos (auto) 0.2 (0-0.2) 10^3/ul Absolute Nucleated RBC 0.01 10^3/ul Nucleated RBC % 0.1 Sodium 136 (133-145) mmol/L Potassium 4.1 (3.5-5.0) mmol/L Chloride 106 (101-111) mmol/L Carbon Dioxide 23 (22-32) mmol/L Anion Gap 7 (2-11) mmol/L BUN 7 (6-24) mg/dL Creatinine 0.61 L (0.67-1.17) mg/dL Est GFR ( Amer) 178.5 (>60) Est GFR (Non-Af Amer) 138.8 (>60) BUN/Creatinine Ratio 11.5 (8-20) Glucose 128 H (70-100) mg/dL Calcium 10.2 (8.6-10.3) mg/dL Total Bilirubin 0.70 (0.2-1.0) mg/dL AST 22 (13-39) U/L ALT 15 (7-52) U/L Alkaline Phosphatase 66 (34-104) U/L Total Protein 7.2 (6.4-8.9) g/dL Albumin 4.7 (3.2-5.2) g/dL Globulin 2.5 (2-4) g/dL Albumin/Globulin Ratio 1.9 (1-3) TSH 1.45 (0.34-5.60) mcIU/mL Urine Color Urine Appearance Urine pH (5-9) Ur Specific [place] (1.010-1.030) Urine Protein (Negative) Urine Ketones (Negative) Urine Blood (Negative) Urine Nitrate (Negative) Urine Bilirubin (Negative) Urine Urobilinogen (Negative) Ur Leukocyte Esterase (Negative) Urine Glucose (Negative) Salicylates < 2.50 (<30) mg/dL Urine Opiates Screen None detected (None Detect) Acetaminophen < 15 mcg/mL Ur Barbiturates Screen None detected (None Detect) Ur Phencyclidine Scrn None detected (None Detect) Ur Amphetamines Screen None detected (None Detect) U Benzodiazepines Scrn None detected (None Detect) [place] 0.49 L (0.6-1.2) mmol/L Urine Cocaine Screen None detected (None Detect) U Cannabinoids Screen None detected (None Detect) Serum Alcohol < 10 (<10) mg/dL 05/28/17 Range/Units 13:37 WBC (3.5-10.8) 10^3/ul RBC (4.0-5.4) 10^6/ul Hgb (14.0-18.0) g/dl Hct (42-52) % MCV (80-94) fL MCH (27-31) pg MCHC (31-36) g/dl RDW (10.5-15) % Plt Count (150-450) 10^3/ul MPV (7.4-10.4) um3 Neut % (Auto) (38-83) % Lymph % (Auto) (25-47) % [place] % (Auto) (1-9) % Eos % (Auto) (0-6) % Baso % (Auto) (0-2) % Absolute Neuts (auto) (1.5-7.7) 10^3/ul Absolute Lymphs (auto) (1.0-4.8) 10^3/ul Absolute Monos (auto) (0-0.8) 10^3/ul Absolute Eos (auto) (0-0.6) 10^3/ul Absolute Basos (auto) (0-0.2) 10^3/ul Absolute Nucleated RBC 10^3/ul Nucleated RBC % Sodium (133-145) mmol/L Potassium (3.5-5.0) mmol/L Chloride (101-111) mmol/L Carbon Dioxide (22-32) mmol/L Anion Gap (2-11) mmol/L BUN (6-24) mg/dL Creatinine (0.67-1.17) mg/dL Est GFR ( Amer) (>60) Est GFR (Non-Af Amer) (>60) BUN/Creatinine Ratio (8-20) Glucose (70-100) mg/dL Calcium (8.6-10.3) mg/dL Total Bilirubin (0.2-1.0) mg/dL AST (13-39) U/L ALT (7-52) U/L Alkaline Phosphatase (34-104) U/L Total Protein (6.4-8.9) g/dL Albumin (3.2-5.2) g/dL Globulin (2-4) g/dL Albumin/Globulin Ratio (1-3) TSH (0.34-5.60) mcIU/mL Urine Color Straw Urine Appearance Clear Urine pH 7.0 (5-9) Ur Specific [place] 1.003 L (1.010-1.030) Urine Protein Negative (Negative) Urine Ketones Negative (Negative) Urine Blood Negative (Negative) Urine Nitrate Negative (Negative) Urine Bilirubin Negative (Negative) Urine Urobilinogen Negative (Negative) Ur Leukocyte Esterase Negative (Negative) Urine Glucose Negative (Negative) Salicylates (<30) mg/dL Urine Opiates Screen (None Detect) Acetaminophen mcg/mL Ur Barbiturates Screen (None Detect) Ur Phencyclidine Scrn (None Detect) Ur Amphetamines Screen (None Detect) U Benzodiazepines Scrn (None Detect) [place] (0.6-1.2) mmol/L Urine Cocaine Screen (None Detect) U Cannabinoids Screen (None Detect) Serum Alcohol (<10) mg/dL Result Diagrams: 05/28/17 13:37 05/28/17 13:37 Lab Statement: Any lab studies that have been ordered have been reviewed, and results considered in the medical decision making process. Course/Dx - Course Course Of Treatment: ADMIT MHU - Differential Dx/Clinical Impression Provider Diagnosis: Mental health problem Discharge - Discharge Plan Condition: Stable Disposition[place] [place] The documentation as recorded by the George nation Alfonso accurately reflects the service I personally performed and the decisions made by me, Ray Hernandez MD.
[2017-05-28] MEDS: Haloperidol TAB* 5 MG PO PRN (23:32)
[2017-05-29] MEDS ORDERED: diPHENhydraMINE PO* 50 MG PO ONE (04:00)
[2017-05-29] MEDS: Lithium Carbonate ER* 450 MG TAB.ER PO SCH ×2 (08:55→20:02)
[2017-05-29] MEDS: Thiamine TAB* 100 MG TAB PO SCH (08:55)
[2017-05-29] MEDS: Vitamin THERAPEUTIC TAB PO SCH (08:55)
[2017-05-29] MEDS: Nicotine PATCH 21 MG/24 HR* PATCH TRANSDERM SCH (08:56)
--- NOTE | 2017-05-29 09:43 | HP ---
H&P (Free Text) History and Physical: HPI: ---- Patient is a 51yo male with PPHx significant for Schizoaffective d/o, Bipolar type and Alcohol use d/o presented to the [facility], on 9.45 status BIBA, from the [facility] building where he reported worsening depressive symptoms, SI w/ plan to tie concrete bricks to his feet and jump into the funez from a rented boat. Patient reports also worsening disorganized TP and recent VHs of demons and people in black hoodies who he feels will harm him. Patient also reports relapsing on alcohol about 7 days ago. He reports he has drank 2 -6pks up to a case of 16oz beers over that time. Patient reports also 2 days prior to his presentation here experiencing VHs of bugs crawling the michelle or flying by. He has reports no abuse of his current Ativan Rx. Patient reports he hadn't drank since his last discharge from [facility] on 02/23/17. Patient reports noticing his mood dropping with days of his last discharge from the [facility]. Patient reports no identifiable trigger, but reported he has been dealing with worsening feelings of hopelessness, helplessness, and worthlessness. He reports missing his mother still. She committed suicide in her 40's. Patient reports dropping mood associated with poor energy, poor motivation, decreased attention to hygiene and to the cleanliness of his things. Patient reports decreased interest in things he normally enjoys, and social isolation. Patient reports his usual social pattern of going to coffee houses, the library, AA meetings and groups has stopped. He reports increased fear with being around other people. He reports anxiety is worse at night and is associated with him being afraid to sleep as he is afraid he will not wake up if he falls asleep. Patient reports "night terrors " and severe insomnia. Patient reports hx of >5 suicide attempts, usually by cutting, last in 2011. Patient reports a 3month period of sobriety, which ended 1 week ago. He reports over the last 1 weeks he has drank 12-24 16oz beers daily. Patient reports a hx of severe alcohol use d/o symptoms, drinking daily, associated with DUI in 1999, and 10 inpatient SATPs. Patient reports last drinking on a daily basis over 3yrs ago. Patient reports hx of DTs. Patient denies hx of alcohol w/d seizure. Patient reports he has been compliant with monthly NUNO Invega Sustenna. Currently on 234mg IM qMonthly, last given in 03/2017. Patient reports he has been non-compliant with his oral psychotropic med over the last week. Patient denies current Alcohol w/d symptoms. He currently denies SI/HI and AH/VH. Past Psych Hx: Inpt - Patient reports hx of >5 inpatient psychiatric hospitalizations, his last was here at [facility] in 02/2017. Outpt - Patient is seen by Dr. Huber at [facility] Dx - Schizophrenia, Alcohol use d/o Psychotropic med hx - Edinboro(currently on 450mg po BID, reports non- compliance recently), Depakote(reports hx of no benefit), Invega Sustenna( currently on 156mg IM, last given 03/2017 cant recall day of the month) and Ativan 2mg po BID. Suicide attempt Hx / SIB Hx: -Patient reports >5 suicide attempts, most by cutting, last in 2011. -Patient denies hx of SIB. Trauma Hx: -Patient denies hx of childhood emotional, physical, and sexual abuse Substance Hx: -Patient reports recent alcohol use d/o symptoms. He reports over the last 1 week he has drank 16-24 16oz beers daily. -Patient reports a hx of severe alcohol use d/o symptoms, drinking daily, associated with DUI in 1999, and 10 inpatient SATPs. -Patient reports last drinking on a daily basis over 3yrs ago. -Patient reports hx of DTs. -Patient denies hx of alcohol w/d seizure. -Patient denies use of illicit substances. Medical Hx: COPD Surgical Hx: Appendectomy Allergies: --------- NKDA Family Hx: Patient reports he was adopted at age 1yo after he and his siblings were given up. Patient has no knowledge of his father's MH or HIMANSHU hx. He has no knowledge of his father's side of the family. Patient reports his mother committed suicide in her 40's by hanging. Patient reports many family members on his mother's side deal with depression and anxiety symptoms. Patient reports no knowledge of other family members who have committed suicide. 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 He's lived there since 09/2016 -Patient denies access to firearms -Patient denies stockpiles of old Rx pills at home Home medications: Home Medications Medication Instructions Recorded Confirmed Type Edinboro Carbonate ER TAB* 450 mg PO BID #60 tab.er 02/24/17 05/28/17 Rx LORazepam TAB(*) [Ativan 1 MG TAB 2 mg PO BID PRN 05/28/17 05/28/17 History (*)] Paliperidone SUSTENNA* [Invega 234 mg IM MONTHLY 05/28/17 05/28/17 History Sustenna*] VITALS: Vital Signs (72 hours) 05/28/17 05/28/17 05/28/17 13:19 15:20 15:35 Temperature 99.6 F 99.7 F Pulse Rate 100 96 88 Respiratory 20 16 Rate Blood Pressure 124/83 118/81 115/78 (mmHg) O2 Sat by Pulse 96 97 96 Oximetry 05/28/17 05/28/17 05/28/17 15:47 18:26 23:32 Temperature 98.3 F Pulse Rate 88 Respiratory 16 16 16 Rate Blood Pressure 115/78 (mmHg) O2 Sat by Pulse 96 Oximetry 05/29/17 05/29/17 05/29/17 07:23 09:10 10:07 Temperature 98.1 F Pulse Rate 87 Respiratory 16 16 16 Rate Blood Pressure 105/76 (mmHg) O2 Sat by Pulse 97 Oximetry 05/29/17 12:49 Temperature Pulse Rate Respiratory 16 Rate Blood Pressure (mmHg) O2 Sat by Pulse Oximetry LABS: ----- Laboratory Tests 05/28/17 05/28/17 05/28/17 13:37 13:37 13:37 WBC 15.6 H RBC 5.00 Hgb 15.3 Hct 45 MCV 90 MCH 31 MCHC 34 RDW 14 Plt Count 278 MPV 8 Neut % (Auto) 84.3 H Lymph % (Auto) 7.0 L Dukes % (Auto) 7.6 Eos % (Auto) 0.1 Baso % (Auto) 1.0 Absolute Neuts (auto) 13.2 H Absolute Lymphs (auto) 1.1 Absolute Monos (auto) 1.2 H Absolute Eos (auto) 0 Absolute Basos (auto) 0.2 Absolute Nucleated RBC 0.01 Nucleated RBC % 0.1 Sodium 136 Potassium 4.1 Chloride 106 Carbon Dioxide 23 Anion Gap 7 BUN 7 Creatinine 0.61 L Est GFR ( Amer) 178.5 Est GFR (Non-Af Amer) 138.8 BUN/Creatinine Ratio 11.5 Glucose 128 H Hemoglobin A1c Calcium 10.2 Total Bilirubin 0.70 AST 22 ALT 15 Alkaline Phosphatase 66 Total Protein 7.2 Albumin 4.7 Globulin 2.5 Albumin/Globulin Ratio 1.9 Triglycerides 135 Cholesterol 222 LDL Cholesterol 135 HDL Cholesterol 60.3 TSH 1.45 Urine Color Urine Appearance Urine pH Ur Specific Arvilla Urine Protein Urine Ketones Urine Blood Urine Nitrate Urine Bilirubin Urine Urobilinogen Ur Leukocyte Esterase Urine Glucose Salicylates < 2.50 Urine Opiates Screen None detected Acetaminophen < 15 Ur Barbiturates Screen None detected Ur Phencyclidine Scrn None detected Ur Amphetamines Screen None detected U Benzodiazepines Scrn None detected Edinboro 0.49 L Urine Cocaine Screen None detected U Cannabinoids Screen None detected Serum Alcohol < 10 05/28/17 05/28/17 13:37 13:37 WBC RBC Hgb Hct MCV MCH MCHC RDW Plt Count MPV Neut % (Auto) Lymph % (Auto) Dukes % (Auto) Eos % (Auto) Baso % (Auto) Absolute Neuts (auto) Absolute Lymphs (auto) Absolute Monos (auto) Absolute Eos (auto) Absolute Basos (auto) Absolute Nucleated RBC Nucleated RBC % Sodium Potassium Chloride Carbon Dioxide Anion Gap BUN Creatinine Est GFR ( Amer) Est GFR (Non-Af Amer) BUN/Creatinine Ratio Glucose Hemoglobin A1c 5.9 H Calcium Total Bilirubin AST ALT Alkaline Phosphatase Total Protein Albumin Globulin Albumin/Globulin Ratio Triglycerides Cholesterol LDL Cholesterol HDL Cholesterol TSH Urine Color Straw Urine Appearance Clear Urine pH 7.0 Ur Specific Arvilla 1.003 L Urine Protein Negative Urine Ketones Negative Urine Blood Negative Urine Nitrate Negative Urine Bilirubin Negative Urine Urobilinogen Negative Ur Leukocyte Esterase Negative Urine Glucose Negative Salicylates Urine Opiates Screen Acetaminophen Ur Barbiturates Screen Ur Phencyclidine Scrn Ur Amphetamines Screen U Benzodiazepines Scrn Edinboro Urine Cocaine Screen U Cannabinoids Screen Serum Alcohol PHYSICAL EXAM: GEN - in NAD, looks stated age, thin, long ren hair and lizarraga. HEENT - NC/AT, EOEMI, no lesions or discharge noted, conjunctivae clear NECK - supple, no JVD, no LAD, CARDIAC - S1/S2, no discernable murmurs ABD - (+) BS x 4 quad, non-tender EXT - no edema, no lesions MUSCULOSKEL - 5/5 muscle strength in all extremities SKIN - intact, no lesions NEURO - CN 2-12, steady gait MSE: ----- Appearance -thin build male, looks older than stated age, long ren hair and lizarraga, fair hygeine, in NAD Behavior - calm, cooperative Speech - RRR, prosody wnl Eye Contact - good Mood - "anxious" Affect - depressed TP - linear and GD TC - concerned with worsening depression and psychotic symptoms Perception - Patient denies AH/VH. He reported VHs and disorganized TP prior to admission Orientation - A&Ox3 Cognition - intact Insight - poor Judgement - poor SI / HI - SI and plan present on admission, currently denies both ASSESSMENT: 1. Schizoaffective d/o, Bipolar type MRE depressed, severe 2. Alcohol use d/o, severe PLAN: ------ 1. Continue admission to [facility] for safety and symptom mx. 2. WAM not indicated. 3. Continue Edin[place] 450mg po BID for mood stabilization. 4. Continue Invega Sustenna NUNO 234mg IM q monthly. Next injection due on and qMonthly. Patient received dose today 05/29/17. 5. Will start Abilify at 10mg po qhs for antipsychotic mx and re-eval if to continue as patient's NUNO will not become therapeutic for 8 days. 6. Continue Ativan at 2mg po BID for anxiety. 7. Will start Remeron 15mg po qhs for insomnia. 8. Continue compiling collateral information from oupt MH providers and [facility] staff. 9. Patient to participate in milieu activities and groups.
[2017-05-29] MEDS: Haloperidol TAB* 5 MG PO PRN (10:07)
[2017-05-29] MEDS ORDERED: Mouth Piece, Nicotine* 1 EACH CARTRIDGE ONE (13:14)
[2017-05-29] MEDS: Nicotine Inhaler* 10 MG AMP INH PRN (13:15)
[2017-05-29] MEDS: Nicotine GUM* 2 MG PO PRN (13:16)
[2017-05-29 14:26] LABS: Cholesterol 222 mg/dL; HDL Cholesterol 60.3 mg/dL; LDL Cholesterol 135 mg/dL; Triglycerides 135 mg/dL
[2017-05-29] MEDS ORDERED: LORazepam TAB(*) 1 MG PO ONE (15:44)
[2017-05-29] MEDS: ARIPiprazole TAB* 5 MG PO SCH (20:02)
[2017-05-29] MEDS: LORazepam TAB(*) 1 MG PO SCH (20:02)
[2017-05-29] MEDS: Mirtazapine TAB* 15 MG PO SCH (20:02)
[2017-05-29] MEDS: Nicotine Patch Removal NOTE PATCH OFF SCH (20:08)
[2017-05-30] MEDS: LORazepam TAB(*) 1 MG PO SCH ×2 (08:32→20:04)
[2017-05-30] MEDS: Lithium Carbonate ER* 450 MG TAB.ER PO SCH ×2 (08:32→20:04)
[2017-05-30] MEDS: Vitamin THERAPEUTIC TAB PO SCH (08:32)
[2017-05-30] MEDS: Thiamine TAB* 100 MG TAB PO SCH (08:33)
[2017-05-30] MEDS: Nicotine PATCH 21 MG/24 HR* PATCH TRANSDERM SCH (11:05)
[2017-05-30] MEDS: Nicotine Inhaler* 10 MG AMP INH PRN ×3 (11:13→22:44)
[2017-05-30] MEDS: Nicotine GUM* 2 MG PO PRN ×3 (11:13→22:44)
[2017-05-30] MEDS: ARIPiprazole TAB* 5 MG PO SCH (20:03)
[2017-05-30] MEDS: Mirtazapine TAB* 15 MG PO SCH (20:04)
[2017-05-30] MEDS: Nicotine Patch Removal NOTE PATCH OFF SCH (20:06)
[2017-05-31] MEDS: Haloperidol TAB* 5 MG PO PRN ×2 (00:55→15:48)
[2017-05-31] MEDS ORDERED: Mouth Piece, Nicotine* 1 EACH CARTRIDGE ONE (01:16)
[2017-05-31] MEDS: Nicotine Inhaler* 10 MG AMP INH PRN ×5 (01:20→20:04)
[2017-05-31] MEDS: Nicotine GUM* 2 MG PO PRN ×6 (01:20→21:59)
[2017-05-31] MEDS: LORazepam TAB(*) 1 MG PO SCH ×2 (09:05→20:01)
[2017-05-31] MEDS: Lithium Carbonate ER* 450 MG TAB.ER PO SCH ×2 (09:05→20:02)
[2017-05-31] MEDS: Vitamin THERAPEUTIC TAB PO SCH (09:06)
[2017-05-31] MEDS: Thiamine TAB* 100 MG TAB PO SCH (09:07)
[2017-05-31] MEDS: Nicotine PATCH 21 MG/24 HR* PATCH TRANSDERM SCH (09:17)
--- NOTE | 2017-05-31 17:27 | PN ---
<Rehana Vincent - Last Filed: 05/31/17 17:21> Subjective - Subjective Service Type: [id number] Hosp care 15 min low complexity Subjective: Rose is pleasant and cooperative. He endorses suicidal thoughts with no intention; denies homicidal ideation. He reports sleeping in an upright position so that he does not sleep "too deeply" as he fears he will wake up in a psychotic state. Speech is clear, tangential and slightly pressured. Reports intermittent auditory and visual hallucinations that he understands are not real. Ativan is helping with anxiety, he reports that he does feel better than when admitted. He plans of attending groups tomorrow, states he has become familiar with others on the unit and is not as fearful. Objective - Appearance Appearance: Thin Framed Dysmorphic Features: No Hygiene: Mal-odorous Grooming: Disheveled - Behavior Psychomotor Activities: Abnormal-Increased - paces frequently Exhibits Abnormal Movement: No - Attitude and Relatedness Attitude and Relatedness: Psychotically Related Eye Contact: Fair - Speech Quality: Pressured Latencies: Short Quantity: Copious - Mood Patient's Decription of Mood: "up and down" - Affect Observed Affect: Constricted Affect Consistent with: Dysphoria - Thought Process Patient's Thought Process: Tangential Thought Content: Yes Passive Wish, Yes Paranoid Ideation - fearful to be around others, No Suicidal Planning, No Homicidal Ideation - Sensorium Type of Hallucinations: Visual: Yes - shadows; cock roaches on floor; bugs in the air, Auditory: Yes - different kinds of music, Command: No - Level of Consciousness Level of Consciousness: Alert Orientation: Yes Intact, Yes Orientated to Time, Yes Orientated to Place, Yes Orientated to Person - Impulse Control Impulse Control: Tenuous - Insight and Judgement Insight and Judgement: Poor - Group Participation Particating in Group Activities: No - Medication Management Medication Management Adherence: Yes Assessment - Assessment Merits Inpatient Hospitalization: For Stabilization, Consolidate Improvements, For Discharge Planning Inpatient DSM-IV Dx: Schizoaffective disorder; Bipolar type MRE deressed, severe Clinical Impression: Last seen at this unit February 2017, patient has history of multiple inpatient psychiatric admissions, suicide attempts last in 2011, severe alcohol use disorder in addition to schizoaffective disorder, Bipolar type, severe depression. Rose is medication compliant; reports suicidal thoughts without intention; no homicidal thoughts. He is anxious with frequent pacing in the halls. Taking Ativan 2mg po bid scheduled and Haldol 5 mg po q6h prn for agitation with relief. Received Invega Sustena 234 mg IM and Aripiprazole 10 mg on 05/29/17. He endorses visual and auditory hallucinations intermittently but states he understands they are not real. Requires continued admission for stabilization, medication management and consolidation of improvements. Plan - Plan Treatment Plan: Name: ROSE LUIS Birthdate: 1965 [id number] Medications: Current Medications Acetaminophen (Tylenol Tab*) 650 mg PO Q4H PRN PRN Reason: for pain; or Temp >101 F Al Hydrox/Mg Hydrox/Simethicone (Maalox Plus*) 30 ml PO Q4H PRN PRN Reason: INDIGESTION Aripiprazole (Abilify Tab*) 10 mg PO BEDTIME [facility] Last Admin: 05/30/17 20:03 Dose: 10 mg Haloperidol (Haldol Tab*) 5 mg PO Q6H PRN PRN Reason: AGITATION Last Admin: 05/31/17 15:48 Dose: 5 mg Meno Carbonate (Meno Carbonate Er Tab*) 450 mg PO BID [facility] Last Admin: 05/31/17 09:05 Dose: 450 mg Lorazepam (Ativan Tab(*)) 2 mg PO BID [facility] Last Admin: 05/31/17 09:05 Dose: 2 mg Mirtazapine (Remeron Tab*) 15 mg PO BEDTIME [facility] Last Admin: 05/30/17 20:04 Dose: 15 mg Multivitamins (Theragran Tab*) 1 tab PO DAILY [facility] Last Admin: 05/31/17 09:06 Dose: 1 tab Nicotine (Nicotine Inhaler*) 10 mg INH Q2H PRN PRN Reason: CRAVING Last Admin: 05/31/17 15:49 Dose: 10 mg Nicotine (Nicotine Patch 21 Mg/24 Hr*) 1 patch TRANSDERM DAILY@0800 [facility] Last Admin: 05/31/17 09:17 Dose: Not Given Nicotine Polacrilex (Nicotine Gum*) 2 mg PO Q2H PRN PRN Reason: CRAVING Last Admin: 05/31/17 15:50 Dose: 2 mg Pharmacy Profile Note (Nicotine Patch Removal Note*) 1 note PATCH OFF 2100 [facility] Last Admin: 05/30/17 20:06 Dose: Not Given Thiamine HCl (Vitamin B-1 Tab*) 100 mg PO DAILY [facility] Last Admin: 05/31/17 09:07 Dose: 100 mg <Bobo Cash - Last Filed: 05/31/17 19:12> Assessment - Assessment Clinical Impression: Reviewed this note written by student psychiatric nurse practitioner, Rehana Vincent, and approved it after discussion with her. Plan - Plan Treatment Plan: Name: ROSE LUIS Birthdate: 1965 [id number] Medications: Current Medications Acetaminophen (Tylenol Tab*) 650 mg PO Q4H PRN PRN Reason: for pain; or Temp >101 F Al Hydrox/Mg Hydrox/Simethicone (Maalox Plus*) 30 ml PO Q4H PRN PRN Reason: INDIGESTION Aripiprazole (Abilify Tab*) 10 mg PO BEDTIME [facility] Last Admin: 05/30/17 20:03 Dose: 10 mg Haloperidol (Haldol Tab*) 5 mg PO Q6H PRN PRN Reason: AGITATION Last Admin: 05/31/17 15:48 Dose: 5 mg Meno Carbonate (Meno Carbonate Er Tab*) 450 mg PO BID [facility] Last Admin: 05/31/17 09:05 Dose: 450 mg Lorazepam (Ativan Tab(*)) 2 mg PO BID [facility] Last Admin: 05/31/17 09:05 Dose: 2 mg Mirtazapine (Remeron Tab*) 15 mg PO BEDTIME [facility] Last Admin: 05/30/17 20:04 Dose: 15 mg Multivitamins (Theragran Tab*) 1 tab PO DAILY [facility] Last Admin: 05/31/17 09:06 Dose: 1 tab Nicotine (Nicotine Inhaler*) 10 mg INH Q2H PRN PRN Reason: CRAVING Last Admin: 05/31/17 15:49 Dose: 10 mg Nicotine (Nicotine Patch 21 Mg/24 Hr*) 1 patch TRANSDERM DAILY@0800 [facility] Last Admin: 05/31/17 09:17 Dose: Not Given Nicotine Polacrilex (Nicotine Gum*) 2 mg PO Q2H PRN PRN Reason: CRAVING Last Admin: 05/31/17 15:50 Dose: 2 mg Pharmacy Profile Note (Nicotine Patch Removal Note*) 1 note PATCH OFF 2100 [facility] Last Admin: 05/30/17 20:06 Dose: Not Given Thiamine HCl (Vitamin B-1 Tab*) 100 mg PO DAILY [facility] Last Admin: 05/31/17 09:07 Dose: 100 mg
[2017-05-31] MEDS: ARIPiprazole TAB* 5 MG PO SCH (20:01)
[2017-05-31] MEDS: Mirtazapine TAB* 15 MG PO SCH (20:02)
[2017-05-31] MEDS: Nicotine Patch Removal NOTE PATCH OFF SCH (21:01)
[2017-06-01] MEDS: Nicotine Inhaler* 10 MG AMP INH PRN ×3 (00:23→16:47)
[2017-06-01] MEDS: Nicotine GUM* 2 MG PO PRN ×3 (00:23→16:48)
[2017-06-01] MEDS: Vitamin THERAPEUTIC TAB PO SCH (09:07)
[2017-06-01] MEDS: LORazepam TAB(*) 1 MG PO SCH ×2 (09:08→20:24)
[2017-06-01] MEDS: Lithium Carbonate ER* 450 MG TAB.ER PO SCH ×2 (09:08→20:23)
[2017-06-01] MEDS: Thiamine TAB* 100 MG TAB PO SCH (09:08)
[2017-06-01] MEDS: Nicotine PATCH 21 MG/24 HR* PATCH TRANSDERM SCH (09:09)
--- NOTE | 2017-06-01 13:18 | PN ---
Subjective - Subjective Service Type: [id number] Hosp care 15 min low complexity Subjective: Patient noted to be isolated to his room most of the weekend. He is up for meals and attending groups. Patient has reported episodic periods of VHs and intense depression. Patient has also been noted to be pleasant and social even reporting an intensity of depression at 4/10. Patient reports he has not developed alcohol w/d symptoms. He reports no episodes of confusion or tremor. Patient is med compliant and denies med s/e's. Patient reports poor maintenance of sleep, but overall his number of hours of sleep has improved. Patient reports he has rescinded his 72hr notice. He reports no current SI/HI or AH/VH. Patient is interested in continuing his admission to develop more of a structure for ADLs and to see his mood stable for longer as he feels he asked to discharge too soon at last admission. Objective - Appearance Appearance: Thin Framed Dysmorphic Features: No Hygiene: Normal Grooming: Disheveled - Behavior Psychomotor Activities: Abnormal-Decreased Exhibits Abnormal Movement: No - Attitude and Relatedness Attitude and Relatedness: Cooperative Eye Contact: Fair - Speech Quality: Unpressured Latencies: Normal Quantity: Appropriate - Mood Patient's Decription of Mood: "depressed" - Affect Observed Affect: Depressed Affect Consistent with: Dysphoria - Thought Process Patient's Thought Process: Coherent Thought Content: No Passive Wish, No Suicidal Planning, No Homicidal Ideation, No Paranoid Ideation - Sensorium Experiencing Hallucinations: No, Sensorium is Clear Type of Hallucinations: Visual: No, Auditory: No, Command: No - Level of Consciousness Level of Consciousness: Agitated Orientation: No Intact, No Orientated to Time, No Orientated to Place, No Orientated to Person - Impulse Control Impulse Control: Intact - Insight and Judgement Insight and Judgement: Fair - Group Participation Particating in Group Activities: Yes - Medication Management Medication Management Adherence: Yes Assessment - Assessment Merits Inpatient Hospitalization: For Immediate Safety, For Stabilization Inpatient DSM-IV Dx: 1. Schizoaffective d/o, Bipolar type MRE depressed, severe. 2. Alcohol use d/o, severe Plan - Plan Treatment Plan: Name: ROSE LUIS Birthdate: 1965 [id number] PLAN: ------ 1. Continue admission to [facility] for safety and symptom mx. 2. WAM not indicated. 3. Continue Lesslie 450mg po BID for mood stabilization. 4. Continue Invega Sustenna NUNO 234mg IM q monthly. Next injection due on and qMonthly. Patient received dose today 05/29/17. 5. Continue Abilify at 10mg po qhs for antipsychotic mx and re-eval if to continue as patient's NUNO will not become therapeutic for 8 days. 6. Continue Ativan at 2mg po BID for anxiety. 7. Increase Remeron from 15mg to 30mg po qhs for anxiety/nsomnia. 8. Continue compiling collateral information from [facility] providers and [facility] staff. 9. Patient to participate in milieu activities and groups. Continued Medication Management: Different Medication Medications: Current Medications Acetaminophen (Tylenol Tab*) 650 mg PO Q4H PRN PRN Reason: for pain; or Temp >101 F Al Hydrox/Mg Hydrox/Simethicone (Maalox Plus*) 30 ml PO Q4H PRN PRN Reason: INDIGESTION Aripiprazole (Abilify Tab*) 10 mg PO BEDTIME [facility] Last Admin: 05/31/17 20:01 Dose: 10 mg Haloperidol (Haldol Tab*) 5 mg PO Q6H PRN PRN Reason: AGITATION Last Admin: 05/31/17 15:48 Dose: 5 mg Lesslie Carbonate (Lesslie Carbonate Er Tab*) 450 mg PO BID [facility] Last Admin: 06/01/17 09:08 Dose: 450 mg Lorazepam (Ativan Tab(*)) 2 mg PO BID [facility] Last Admin: 06/01/17 09:08 Dose: 2 mg Mirtazapine (Remeron Tab*) 15 mg PO BEDTIME [facility] Last Admin: 05/31/17 20:02 Dose: 15 mg Multivitamins (Theragran Tab*) 1 tab PO DAILY [facility] Last Admin: 06/01/17 09:07 Dose: 1 tab Nicotine (Nicotine Inhaler*) 10 mg INH Q2H PRN PRN Reason: CRAVING Last Admin: 06/01/17 09:10 Dose: 10 mg Nicotine (Nicotine Patch 21 Mg/24 Hr*) 1 patch TRANSDERM DAILY@0800 [facility] Last Admin: 06/01/17 09:09 Dose: Not Given Nicotine Polacrilex (Nicotine Gum*) 2 mg PO Q2H PRN PRN Reason: CRAVING Last Admin: 06/01/17 09:10 Dose: 2 mg Pharmacy Profile Note (Nicotine Patch Removal Note*) 1 note PATCH OFF 2099 [facility] Last Admin: 05/31/17 21:01 Dose: Not Given Thiamine HCl (Vitamin B-1 Tab*) 100 mg PO DAILY [facility] Last Admin: 06/01/17 09:08 Dose: 100 mg - Discharge Plan Discharge Plan: Outpatient Follow Up Outpatient Program: [facility]
[2017-06-01] MEDS: ARIPiprazole TAB* 5 MG PO SCH (20:23)
[2017-06-01] MEDS: Mirtazapine TAB* 15 MG PO SCH (20:24)
[2017-06-01] MEDS: Nicotine Patch Removal NOTE PATCH OFF SCH (21:00)
[2017-06-02] MEDS: Nicotine PATCH 21 MG/24 HR* PATCH TRANSDERM SCH (08:19)
[2017-06-02] MEDS: Lithium Carbonate ER* 450 MG TAB.ER PO SCH ×2 (08:19→20:05)
[2017-06-02] MEDS: LORazepam TAB(*) 1 MG PO SCH ×2 (08:20→20:04)
[2017-06-02] MEDS: Vitamin THERAPEUTIC TAB PO SCH (08:20)
[2017-06-02] MEDS: Thiamine TAB* 100 MG TAB PO SCH (08:20)
[2017-06-02] MEDS: Nicotine Inhaler* 10 MG AMP INH PRN ×2 (08:22→20:07)
[2017-06-02] MEDS: Nicotine GUM* 2 MG PO PRN ×2 (08:22→20:07)
--- NOTE | 2017-06-02 10:24 | PN ---
Subjective - Subjective Service Type: 11986 Hosp care 15 min low complexity Subjective: Patient noted to be visible in the milieu, calm, cooperative, but isolative. He is up for meals and attending groups. Patient reports benefit from groups and reports he is looking to participate more in the [employer] activities. He expresses insight that he has been isolative and needs to be more social with good people. Patient reports no current AH/VH. He is reports ongoing episodic periods of intense depression associated with SI. He reports these have been less and less frequent since admission. He can't identify a cause. Patient is med compliant and denies med s/e's. Patient reports improved sleep. He reports no current SI/HI or AH/VH. Patient was visited by O staff last night who reported patient is near 100% his baseline mood/cognition/functioning. Objective - Appearance Appearance: Well Developed/Nourished, Thin Framed Dysmorphic Features: No Hygiene: Normal Grooming: Fairly Well Kept - Behavior Psychomotor Activities: Abnormal-Decreased Exhibits Abnormal Movement: No - Attitude and Relatedness Attitude and Relatedness: Cooperative Eye Contact: Fair - Speech Quality: Unpressured Latencies: Normal Quantity: Appropriate - Mood Patient's Decription of Mood: "Anxious" - Affect Observed Affect: Depressed Affect Consistent with: Dysphoria - Thought Process Patient's Thought Process: Coherent Thought Content: No Passive Wish, No Suicidal Planning, No Homicidal Ideation, No Paranoid Ideation - Sensorium Experiencing Hallucinations: No, Sensorium is Clear Type of Hallucinations: Visual: No, Auditory: No, Command: No - Level of Consciousness Level of Consciousness: Alert Orientation: Yes Intact, Yes Orientated to Time, Yes Orientated to Place, Yes Orientated to Person - Impulse Control Impulse Control: Intact - Insight and Judgement Insight and Judgement: Fair - Group Participation Particating in Group Activities: Yes - Medication Management Medication Management Adherence: Yes Assessment - Assessment Merits Inpatient Hospitalization: For Immediate Safety, For Stabilization Inpatient DSM-IV Dx: 1. Schizoaffective d/o, Bipolar type MRE depressed, severe. 2. Alcohol use d/o, severe Plan - Plan Treatment Plan: Name: ROSE LUIS Birthdate: 1965 [id number] PLAN: ------ 1. Continue admission to [facility] for safety and symptom mx. 2. WAM not indicated. 3. Continue [place] 450mg po BID for mood stabilization. 4. Continue Invega Sustenna NUNO 234mg IM q monthly. Next injection due on and qMonthly. Patient received dose today 05/29/17. 5. Continue Abilify at 10mg po qhs for antipsychotic mx and re-eval if to continue as patient's NUNO will not become therapeutic for 8 days. 6. Continue Ativan 2mg po BID for anxiety. 7. Continue Remeron 30mg po qhs for anxiety/insomnia. 8. Collateral information obtained from [facility]pt [facility] providers and [facility] staff. 9. Patient to participate in milieu activities and groups. Continued Medication Management: Continue Outpt Medication Medications: Current Medications Acetaminophen (Tylenol Tab*) 650 mg PO Q4H PRN PRN Reason: for pain; or Temp >101 F Al Hydrox/Mg Hydrox/Simethicone (Maalox Plus*) 30 ml PO Q4H PRN PRN Reason: INDIGESTION Aripiprazole (Abilify Tab*) 10 mg PO BEDTIME [facility] Last Admin: 06/01/17 20:23 Dose: 10 mg Haloperidol (Haldol Tab*) 5 mg PO Q6H PRN PRN Reason: AGITATION Last Admin: 05/31/17 15:48 Dose: 5 mg [place] Carbonate (Birney Carbonate Er Tab*) 450 mg PO BID [facility] Last Admin: 06/02/17 08:19 Dose: 450 mg Lorazepam (Ativan Tab(*)) 2 mg PO BID [facility] Last Admin: 06/02/17 08:20 Dose: 2 mg Mirtazapine (Remeron Tab*) 30 mg PO BEDTIME [facility] Last Admin: 06/01/17 20:24 Dose: 30 mg Multivitamins (Theragran Tab*) 1 tab PO DAILY [facility] Last Admin: 06/02/17 08:20 Dose: 1 tab Nicotine (Nicotine Inhaler*) 10 mg INH Q2H PRN PRN Reason: CRAVING Last Admin: 06/02/17 08:22 Dose: 10 mg Nicotine (Nicotine Patch 21 Mg/24 Hr*) 1 patch TRANSDERM DAILY@0800 [facility] Last Admin: 06/02/17 08:19 Dose: Not Given Nicotine Polacrilex (Nicotine Gum*) 2 mg PO Q2H PRN PRN Reason: CRAVING Last Admin: 06/02/17 08:22 Dose: 2 mg Pharmacy Profile Note (Nicotine Patch Removal Note*) 1 note PATCH OFF 2099 [facility] Last Admin: 06/01/17 21:00 Dose: Not Given Thiamine HCl (Vitamin B-1 Tab*) 100 mg PO DAILY [facility] Last Admin: 06/02/17 08:20 Dose: 100 mg - Discharge Plan Discharge Plan: Outpatient Follow Up Outpatient Program: [facility]
[2017-06-02] MEDS: ARIPiprazole TAB* 5 MG PO SCH (20:04)
[2017-06-02] MEDS: Mirtazapine TAB* 15 MG PO SCH (20:05)
[2017-06-02] MEDS: Nicotine Patch Removal NOTE PATCH OFF SCH (20:17)
[2017-06-03] MEDS: Vitamin THERAPEUTIC TAB PO SCH (08:30)
[2017-06-03] MEDS: LORazepam TAB(*) 1 MG PO SCH ×2 (08:31→20:08)
[2017-06-03] MEDS: Nicotine GUM* 2 MG PO PRN ×2 (08:31→20:09)
[2017-06-03] MEDS: Lithium Carbonate ER* 450 MG TAB.ER PO SCH ×2 (08:31→20:08)
[2017-06-03] MEDS: Thiamine TAB* 100 MG TAB PO SCH (08:31)
[2017-06-03] MEDS: Nicotine PATCH 21 MG/24 HR* PATCH TRANSDERM SCH (08:42)
--- NOTE | 2017-06-03 14:09 | PN ---
Subjective - Subjective Service Type: 02461 Hosp care 15 min low complexity Subjective: Patient noted to be visible in the milieu, calm, cooperative, but isolative. He is up for meals and attending groups. Patient reports ongoing episodes where depression "overwhelms" him without noted trigger. He reports ongoing episodic SI w/o plan. He reports he still focuses on his mother's and reports he has nothing in his life worth staying alive for. Patient encouraged to continue developing purpose for his life. He expressed yesterday interest in involving himself more with the [facility]. Patient encouraged to continue developing what his days will look like after discharge. Patient is med compliant and denies med s/e's. Patient reports improved sleep. He is amenable to starting Wellbutrin for ongoing depressed mood , poor energy, motivation, and concentration. He reports no current SI/HI or AH/VH. Objective - Appearance Appearance: Thin Framed Dysmorphic Features: No Hygiene: Normal Grooming: Well Kept - Behavior Psychomotor Activities: Abnormal-Decreased Exhibits Abnormal Movement: No - Attitude and Relatedness Attitude and Relatedness: Cooperative Eye Contact: Good - Speech Quality: Unpressured Latencies: Normal Quantity: Appropriate - Mood Patient's Decription of Mood: "depressed" - Affect Observed Affect: Depressed Affect Consistent with: Dysphoria - Thought Process Patient's Thought Process: Coherent Thought Content: Yes Passive Wish, No Suicidal Planning, No Homicidal Ideation, No Paranoid Ideation - Sensorium Experiencing Hallucinations: No, Sensorium is Clear Type of Hallucinations: Visual: No, Auditory: No, Command: No - Level of Consciousness Level of Consciousness: Alert Orientation: Yes Intact, Yes Orientated to Time, Yes Orientated to Place, Yes Orientated to Person - Impulse Control Impulse Control: Intact - Insight and Judgement Insight and Judgement: Fair - Group Participation Particating in Group Activities: Yes - Medication Management Medication Management Adherence: Yes Assessment - Assessment Merits Inpatient Hospitalization: For Immediate Safety, For Stabilization Inpatient DSM-IV Dx: 1. Schizoaffective d/o, Bipolar type MRE depressed, severe. 2. Alcohol use d/o, severe Plan - Plan Treatment Plan: Name: ROSE LUIS Birthdate: 1965 [id number] PLAN: ------ 1. Continue admission to [facility] for safety and symptom mx. 2. WAM not indicated. 3. Continue [place] 450mg po BID for mood stabilization. 4. Continue Invega Sustenna NUNO 234mg IM q monthly. Next injection due on and qMonthly. Patient received dose today 05/29/17. 5. Will taper Abilify from 10mg to 5mg po qhs for antipsychotic mx and re-eval if to continue as patient's NUNO is likely at therapeutic levels in the blood. 6. Continue Ativan 2mg po BID for anxiety. 7. Continue Remeron 30mg po qhs for anxiety/insomnia. 8. Patient gives informed consent to start Wellbutrin 100mg po qam for depressive symptoms. 9. Collateral information obtained from [facility] providers and [facility] staff. 10. Patient to participate in milieu activities and groups. Continued Medication Management: Different Medication Medications: Current Medications Acetaminophen (Tylenol Tab*) 650 mg PO Q4H PRN PRN Reason: for pain; or Temp >101 F Al Hydrox/Mg Hydrox/Simethicone (Maalox Plus*) 30 ml PO Q4H PRN PRN Reason: INDIGESTION Aripiprazole (Abilify Tab*) 10 mg PO BEDTIME [facility] Last Admin: 06/02/17 20:04 Dose: 10 mg Haloperidol (Haldol Tab*) 5 mg PO Q6H PRN PRN Reason: AGITATION Last Admin: 05/31/17 15:48 Dose: [address] [place] Carbonate ([place] Carbonate Er Tab*) 450 mg PO BID [facility] Last Admin: 06/03/17 08:31 Dose: 450 mg Lorazepam (Ativan Tab(*)) 2 mg PO BID [facility] Last Admin: 06/03/17 08:31 Dose: 2 mg Mirtazapine (Remeron Tab*) 30 mg PO BEDTIME [facility] Last Admin: 06/02/17 20:05 Dose: 30 mg Multivitamins (Theragran Tab*) 1 tab PO DAILY [facility] Last Admin: 06/03/17 08:30 Dose: 1 tab Nicotine (Nicotine Inhaler*) 10 mg INH Q2H PRN PRN Reason: CRAVING Last Admin: 06/02/17 20:07 Dose: 10 mg Nicotine (Nicotine Patch 21 Mg/24 Hr*) 1 patch TRANSDERM DAILY@0800 [facility] Last Admin: 06/03/17 08:42 Dose: Not Given Nicotine Polacrilex (Nicotine Gum*) 2 mg PO Q2H PRN PRN Reason: CRAVING Last Admin: 06/03/17 08:31 Dose: 2 mg Pharmacy Profile Note (Nicotine Patch Removal Note*) 1 note PATCH OFF 2099 [facility] Last Admin: 06/02/17 20:17 Dose: Not Given Thiamine HCl (Vitamin B-1 Tab*) 100 mg PO DAILY [facility] Last Admin: 06/03/17 08:31 Dose: 100 mg - Discharge Plan Discharge Plan: Outpatient Follow Up Outpatient Program: Renetta [facility]
[2017-06-03] MEDS: ARIPiprazole TAB* 5 MG PO SCH (20:07)
[2017-06-03] MEDS: Nicotine Patch Removal NOTE PATCH OFF SCH (20:07)
[2017-06-03] MEDS: Mirtazapine TAB* 15 MG PO SCH (20:08)
[2017-06-03] MEDS: Nicotine Inhaler* 10 MG AMP INH PRN (20:09)
[2017-06-04] MEDS: LORazepam TAB(*) 1 MG PO SCH ×2 (09:10→20:05)
[2017-06-04] MEDS: Lithium Carbonate ER* 450 MG TAB.ER PO SCH ×2 (09:10→20:05)
[2017-06-04] MEDS: buPROPion SR TAB.SR* 100 MG PO SCH (09:10)
[2017-06-04] MEDS: Nicotine PATCH 21 MG/24 HR* PATCH TRANSDERM SCH (09:10)
[2017-06-04] MEDS: Vitamin THERAPEUTIC TAB PO SCH (09:11)
[2017-06-04] MEDS: Thiamine TAB* 100 MG TAB PO SCH (09:11)
[2017-06-04] MEDS: Nicotine GUM* 2 MG PO PRN (09:12)
[2017-06-04] MEDS: Nicotine Inhaler* 10 MG AMP INH PRN (09:12)
--- NOTE | 2017-06-04 12:01 | PN ---
Subjective - Subjective Service Type: [id number] Hosp care 15 min low complexity Subjective: Patient noted to be visible in the milieu, calm, cooperative, and participating in groups and milieu activities. Patient is more social, but sits alone most of the day. Patient is noticeably brighter in affect and his hygiene is more well-kept. He is up for meals and attending groups. Patient reported another episode yesterday of overwhelming depression associated with SI. He reports ongoing development of what he will do with his days to distract himself from dwelling on negative thoughts. Patient is med compliant and denies med s/e's on addition of Wellbutrin to the regimen. Patient reports fair sleep. He reports no current SI/HI or AH/VH. Objective - Appearance Appearance: Well Developed/Nourished Dysmorphic Features: No Hygiene: Normal Grooming: Well Kept - Behavior Psychomotor Activities: Normal Exhibits Abnormal Movement: No - Attitude and Relatedness Attitude and Relatedness: Cooperative Eye Contact: Good - Speech Quality: Unpressured Latencies: Normal Quantity: Appropriate - Mood Patient's Decription of Mood: "Okay" - Affect Observed Affect: Fair Affect Consistent with: Euthymia - Thought Process Patient's Thought Process: Coherent Thought Content: No Passive Wish, No Suicidal Planning, No Homicidal Ideation, No Paranoid Ideation - Sensorium Experiencing Hallucinations: No, Sensorium is Clear Type of Hallucinations: Visual: No, Auditory: No, Command: No - Level of Consciousness Level of Consciousness: Alert Orientation: Yes Intact, Yes Orientated to Time, Yes Orientated to Place, Yes Orientated to Person - Impulse Control Impulse Control: Intact - Insight and Judgement Insight and Judgement: Fair - Group Participation Particating in Group Activities: Yes - Medication Management Medication Management Adherence: Yes Assessment - Assessment Merits Inpatient Hospitalization: For Immediate Safety, For Stabilization Inpatient DSM-IV Dx: 1. Schizoaffective d/o, Bipolar type MRE depressed, severe. 2. Alcohol use d/o, severe Plan - Plan Treatment Plan: Name: ROSE LUIS Birthdate: 1965 [id number] PLAN: ------ 1. Continue admission to [facility] for safety and symptom mx. 2. WAM not indicated. 3. Continue [place] 450mg po BID for mood stabilization. 4. Continue Invega Sustenna NUNO 234mg IM q monthly. Next injection due on and qMonthly. Patient received dose today 05/29/17. 5. Will continue Abilify 5mg po qhs for antipsychotic mx and re-eval if to continue as patient's NUNO is likely at therapeutic levels in the blood. 6. Continue Ativan 2mg po BID for anxiety. 7. Continue Remeron 30mg po qhs for anxiety/insomnia. 8. Continue Wellbutrin 100mg po qam for depressive symptoms. 9. [facility] Patient will discharge back to [facility]. 10. Patient to participate in milieu activities and groups. Continued Medication Management: Different Medication Medications: Current Medications Acetaminophen (Tylenol Tab*) 650 mg PO Q4H PRN PRN Reason: for pain; or Temp >101 F Al Hydrox/Mg Hydrox/Simethicone (Maalox Plus*) 30 ml PO Q4H PRN PRN Reason: INDIGESTION Aripiprazole (Abilify Tab*) 5 mg PO BEDTIME [facility] Last Admin: 06/03/17 20:07 Dose: 5 mg Bupropion HCl (Wellbutrin Sr Tab*) 100 mg PO DAILY [facility] Last Admin: 06/04/17 09:10 Dose: 100 mg Haloperidol (Haldol Tab*) 5 mg PO Q6H PRN PRN Reason: AGITATION Last Admin: 05/31/17 15:48 Dose: 5 mg [place] Carbonate ([place] Carbonate Er Tab*) 450 mg PO BID [facility] Last Admin: 06/04/17 09:10 Dose: 450 mg Lorazepam (Ativan Tab(*)) 2 mg PO BID [facility] Last Admin: 06/04/17 09:10 Dose: 2 mg Mirtazapine (Remeron Tab*) 30 mg PO BEDTIME [facility] Last Admin: 06/03/17 20:08 Dose: 30 mg Multivitamins (Theragran Tab*) 1 tab PO DAILY [facility] Last Admin: 06/04/17 09:11 Dose: 1 tab Nicotine (Nicotine Inhaler*) 10 mg INH Q2H PRN PRN Reason: CRAVING Last Admin: 06/04/17 09:12 Dose: 10 mg Nicotine (Nicotine Patch 21 Mg/24 Hr*) 1 patch TRANSDERM DAILY@0800 [facility] Last Admin: 06/04/17 09:10 Dose: Not Given Nicotine Polacrilex (Nicotine Gum*) 2 mg PO Q2H PRN PRN Reason: CRAVING Last Admin: 06/04/17 09:12 Dose: 2 mg Pharmacy Profile Note (Nicotine Patch Removal Note*) 1 note PATCH OFF 2099 [facility] Last Admin: 06/03/17 20:07 Dose: Not Given Thiamine HCl (Vitamin B-1 Tab*) 100 mg PO DAILY [facility] Last Admin: 06/04/17 09:11 Dose: 100 mg - Discharge Plan Discharge Plan: Outpatient Follow Up Outpatient Program: Renetta [facility]renas [facility]
[2017-06-04] MEDS: ARIPiprazole TAB* 5 MG PO SCH (20:05)
[2017-06-04] MEDS: Mirtazapine TAB* 15 MG PO SCH (20:05)
[2017-06-04] MEDS: Nicotine Patch Removal NOTE PATCH OFF SCH (20:08)
[2017-06-05] MEDS: Nicotine PATCH 21 MG/24 HR* PATCH TRANSDERM SCH (08:38)
[2017-06-05] MEDS: Nicotine GUM* 2 MG PO PRN (08:41)
[2017-06-05] MEDS: Vitamin THERAPEUTIC TAB PO SCH (08:41)
[2017-06-05] MEDS: Nicotine Inhaler* 10 MG AMP INH PRN (08:41)
[2017-06-05] MEDS: Lithium Carbonate ER* 450 MG TAB.ER PO SCH ×2 (08:41→20:19)
[2017-06-05] MEDS: Thiamine TAB* 100 MG TAB PO SCH (08:41)
[2017-06-05] MEDS: buPROPion SR TAB.SR* 100 MG PO SCH (08:41)
[2017-06-05] MEDS: LORazepam TAB(*) 1 MG PO SCH ×2 (08:41→20:19)
[2017-06-05] MEDS: Mirtazapine TAB* 15 MG PO SCH (20:20)
[2017-06-05] MEDS: ARIPiprazole TAB* 5 MG PO SCH (20:20)
[2017-06-05] MEDS: Nicotine Patch Removal NOTE PATCH OFF SCH (22:05)
[2017-06-06] MEDS: Nicotine PATCH 21 MG/24 HR* PATCH TRANSDERM SCH (08:45)
[2017-06-06] MEDS: Nicotine Inhaler* 10 MG AMP INH PRN (08:45)
[2017-06-06] MEDS: Nicotine GUM* 2 MG PO PRN ×3 (08:45→20:55)
[2017-06-06] MEDS: LORazepam TAB(*) 1 MG PO SCH ×2 (08:46→20:51)
[2017-06-06] MEDS: Vitamin THERAPEUTIC TAB PO SCH (08:46)
[2017-06-06] MEDS: Lithium Carbonate ER* 450 MG TAB.ER PO SCH ×2 (08:46→20:52)
[2017-06-06] MEDS: buPROPion SR TAB.SR* 100 MG PO SCH (08:46)
[2017-06-06] MEDS: Thiamine TAB* 100 MG TAB PO SCH (08:47)
--- NOTE | 2017-06-06 18:20 | PN ---
Subjective - Subjective Service Type: [id number] Hosp care 15 min low complexity Subjective: In bed sleeping around 5.30 PM. Woke up for the assessment. Reports that he was doing much better, particularly suicidal thoughts and depression. Feels more motivated and energetic than yesterday. Sleeping and eating well. No significant concerns reported by staffs. Denies hallucinations, delusions or obsessions. Objective - Appearance Appearance: Healthy Appearing Dysmorphic Features: No Hygiene: Normal Grooming: Disheveled - Behavior Psychomotor Activities: Normal Exhibits Abnormal Movement: No - Attitude and Relatedness Attitude and Relatedness: Appropriate Eye Contact: Fair - Speech Quality: Unpressured Latencies: Normal Quantity: Appropriate - Mood Patient's Decription of Mood: "Fine" - Affect Observed Affect: Non-labile - Thought Process Patient's Thought Process: Coherent, Goal Directed Thought Content: No Passive Wish, No Suicidal Planning, No Homicidal Ideation, No Paranoid Ideation - Sensorium Experiencing Hallucinations: No, Sensorium is Clear Type of Hallucinations: Visual: No, Auditory: No, Command: No - Level of Consciousness Level of Consciousness: Alert Orientation: Yes Intact, Yes Orientated to Time, Yes Orientated to Place, Yes Orientated to Person - Impulse Control Impulse Control: Intact - Insight and Judgement Insight and Judgement: Fair - Group Participation Particating in Group Activities: Yes - Medication Management Medication Management Adherence: Yes Assessment - Assessment Merits Inpatient Hospitalization: Consolidate Improvements, For Discharge Planning Inpatient DSM-IV Dx: 1. Schizoaffective d/o, Bipolar type MRE depressed, severe. 2. Alcohol use d/o, severe Clinical Impression: Appears to be doing significantly better. Plan - Plan Treatment Plan: Name: ROSE LUIS Birthdate: 1965 [id number] Continued Medication Management: Continue Outpt Medication Medications: Current Medications Acetaminophen (Tylenol Tab*) 650 mg PO Q4H PRN PRN Reason: for pain; or Temp >101 F Al Hydrox/Mg Hydrox/Simethicone (Maalox Plus*) 30 ml PO Q4H PRN PRN Reason: INDIGESTION Aripiprazole (Abilify Tab*) 5 mg PO BEDTIME [facility] Last Admin: 06/05/17 20:20 Dose: 5 mg Bupropion HCl (Wellbutrin Sr Tab*) 100 mg PO DAILY [facility] Last Admin: 06/06/17 08:46 Dose: 100 mg Haloperidol (Haldol Tab*) 5 mg PO Q6H PRN PRN Reason: AGITATION Last Admin: 05/31/17 15:48 Dose: 5 mg [place] Carbonate ([place] Carbonate Er Tab*) 450 mg PO BID [facility] Last Admin: 06/06/17 08:46 Dose: 450 mg Lorazepam (Ativan Tab(*)) 2 mg PO BID [facility] Last Admin: 06/06/17 08:46 Dose: 2 mg Mirtazapine (Remeron Tab*) 30 mg PO BEDTIME [facility] Last Admin: 06/05/17 20:20 Dose: 30 mg Multivitamins (Theragran Tab*) 1 tab PO DAILY [facility] Last Admin: 06/06/17 08:46 Dose: 1 tab Nicotine (Nicotine Inhaler*) 10 mg INH Q2H PRN PRN Reason: CRAVING Last Admin: 06/06/17 08:45 Dose: 10 mg Nicotine (Nicotine Patch 21 Mg/24 Hr*) 1 patch TRANSDERM DAILY@0800 [facility] Last Admin: 06/06/17 08:45 Dose: Not Given Nicotine Polacrilex (Nicotine Gum*) 2 mg PO Q2H PRN PRN Reason: CRAVING Last Admin: 06/06/17 15:38 Dose: 2 mg Pharmacy Profile Note (Nicotine Patch Removal Note*) 1 note PATCH OFF 2100 [facility] Last Admin: 06/05/17 22:05 Dose: Not Given Thiamine HCl (Vitamin B-1 Tab*) 100 mg PO DAILY [facility] Last Admin: 06/06/17 08:47 Dose: 100 mg - Discharge Plan Discharge Plan: Outpatient [facility]
[2017-06-06] MEDS: Mirtazapine TAB* 15 MG PO SCH (20:52)
[2017-06-06] MEDS: ARIPiprazole TAB* 5 MG PO SCH (20:52)
[2017-06-06] MEDS: Nicotine Patch Removal NOTE PATCH OFF SCH (21:09)
[2017-06-07] MEDS: Lithium Carbonate ER* 450 MG TAB.ER PO SCH ×2 (09:06→20:45)
[2017-06-07] MEDS: LORazepam TAB(*) 1 MG PO SCH ×2 (09:07→20:45)
[2017-06-07] MEDS: Vitamin THERAPEUTIC TAB PO SCH (09:07)
[2017-06-07] MEDS: Thiamine TAB* 100 MG TAB PO SCH (09:07)
[2017-06-07] MEDS: buPROPion SR TAB.SR* 100 MG PO SCH (09:07)
[2017-06-07] MEDS: Nicotine PATCH 21 MG/24 HR* PATCH TRANSDERM SCH (09:38)
[2017-06-07] MEDS: Nicotine Patch Removal NOTE PATCH OFF SCH (20:44)
[2017-06-07] MEDS: Mirtazapine TAB* 15 MG PO SCH (20:45)
[2017-06-07] MEDS: ARIPiprazole TAB* 5 MG PO SCH (20:45)
[2017-06-08] MEDS: Nicotine PATCH 21 MG/24 HR* PATCH TRANSDERM SCH (08:04)
[2017-06-08] MEDS: LORazepam TAB(*) 1 MG PO SCH (08:05)
[2017-06-08] MEDS: Vitamin THERAPEUTIC TAB PO SCH (08:05)
[2017-06-08] MEDS: buPROPion SR TAB.SR* 100 MG PO SCH (08:05)
[2017-06-08] MEDS: Lithium Carbonate ER* 450 MG TAB.ER PO SCH (08:05)
[2017-06-08] MEDS: Thiamine TAB* 100 MG TAB PO SCH (08:06)
[2017-06-08 08:36] VITALS: BP 109/70
--- NOTE | 2017-06-08 11:58 | DS ---
Subjective - Subjective Service Types: [address] [facility] Day Mgmt simple under 30 min Subjective: Patient noted to be lying in bed most of today. He is noted by staff to have ongoing improved mood, energy, attention to hygeine and grooming, and social interaction with peers. Patient also continues to be more engaged in his therapy. Patient reports feeling ready for discharge. He reports good benefit from attending groups. Patient reports benefit from his time here to continue practicing increased vigilence over his thoughts. He understands coping mechanism of distracting his himself from dwelling on negative thoughts as soon as he recognizes he is doing so. Patient reports benefit to mood and energy level on Wellbutrin and Abilify adjunct for mood. Patient denies med s/e's. Patient reports feeling ready for discharge. Patient is A&Ox4, linear and GD in TP, and future oriented in TC. Patient today denies SI/HI and AH/VH. Patient is psychiatrically stable. Discharge plan has been discussed and patient is amenable and acknowledges understanding. Patient instructed to call the crisis hotline, 911, or self present to a local ED if SI recurs. Patient was amenable and acknowledged understanding of community supports. Patient will be discharge home back to [facility] by [facility] staff. Objective - Appearance Appearance: Thin Framed Dysmorphic Features: No Hygiene: Normal Grooming: Well Kept - Behavior Psychomotor Activities: Normal Exhibits Abnormal Movement: No - Attitude and Relatedness Attitude and Relatedness: Cooperative Eye Contact: Fair - Speech Quality: Unpressured Latencies: Normal Quantity: Appropriate - Mood Patient's Decription of Mood: "Okay" - Affect Observed Affect: Fair Affect Consistent with: Euthymia - Thought Process Patient's Thought Process: Coherent Thought Content: No Passive Wish, No Suicidal Planning, No Homicidal Ideation, No Paranoid Ideation - Sensorium Experiencing Hallucinations: No, Sensorium is Clear Type of Hallucinations: Visual: No, Auditory: No, Command: No - Level of Consciousness Level of Consciousness: Alert Orientation: Yes Intact, Yes Orientated to Time, Yes Orientated to Place, Yes Orientated to Person - Impulse Control Impulse Control: Intact - Insight and Judgement Insight and Judgement: Good - Group Participation Particating in Group Activities: Yes - Medication Management Medication Management Adherence: Yes Treatment Course & Assessment Clinical Course & Impression: HOSPITAL COURSE: Patient is a 51yo male with PPHx significant for Schizoaffective d/o, Bipolar type and Alcohol use d/o presented to the [facility] ED, on .45 status BIBA, from the [facility] building where he reported worsening depressive symptoms, SI w/ plan to tie concrete bricks to his feet and jump into the funez from a rented boat. Patient reports also worsening disorganized TP and recent VHs of demons and people in black hoodies who he feels will harm him. Patient also reports relapsing on alcohol about 7 days ago. He reports he has drank 2 -6pks up to a case of 16oz beers over that time. Patient reports also 2 days prior to his presentation here experiencing VHs of bugs crawling the michelle or flying by. He has reports no abuse of his current Ativan Rx. Patient reports he hadn't drank since his last discharge from [facility] on 02/23/17.Patient reports noticing his mood dropping with days of his last discharge from the [facility]. Patient reports no identifiable trigger, but reported he has been dealing with worsening feelings of hopelessness, helplessness, and worthlessness. He reports missing his mother still. She committed suicide in her 40's. Patient reports dropping mood associated with poor energy, poor motivation, decreased attention to hygiene and to the cleanliness of his things. Patient reports decreased interest in things he normally enjoys, and social isolation. Patient reports his usual social pattern of going to coffee houses, the library, AA meetings and groups has stopped. He reports increased fear with being around other people. He reports anxiety is worse at night and is associated with him being afraid to sleep as he is afraid he will not wake up if he falls asleep. Patient reports "night terrors " and severe insomnia.Patient reports hx of >5 suicide attempts, usually by cutting, last in 2011. Patient reports a 3month period of sobriety, which ended1 week ago. He reports over the last 1 weeks he has drank 12-24 16oz beers daily. Patient reports a hx of severe alcohol use d/o symptoms, drinking daily , associated with DUI in 1999, and 10 inpatient SATPs. Patient reports last drinking on a daily basis over 3yrs ago. Patient reports hx of DTs. Patient denies hx of alcohol w/d seizure. Patient reports he has been compliant with monthly NUNO Invega Sustenna. Currently on 234mg IM qMonthly, last given in 03/2017. Patient reports he has been non-compliant with his oral psychotropic med over the last week. Patient denies current Alcohol w/d symptoms. On admission to [facility] he denied SI/HI and AH/VH. On admission, WAM not indicated. Patient home dose [place] 450mg po BID for mood stabilization was continued. Invega Sustenna NUNO 234mg IM q monthly was given today. Patient received dose today 05/05. Next injection due on 06/26/17 and qMonthly. Started Abilify at 10mg po qhs for antipsychotic mx and re-eval if to continue as patient's NUNO will not become therapeutic for 8 days. Continued Ativan at 2mg po BID for anxiety. Started Remeron 15mg po qhs for insomnia. On admission day #3, patient noted to be isolated to his room most of the weekend. He is up for meals and attending groups. Patient has reported episodic periods of VHs and intense depression. Patient has also been noted to be pleasant and social even reporting an intensity of depression at 4/10. Patient reports he has not developed alcohol w/d symptoms. He reports no episodes of confusion or tremor. Patient is med compliant and denies med s/e's. Patient reports poor maintenance of sleep, but overall his number of hours of sleep has improved. Patient reports he has rescinded his 72hr notice. He reports no current SI/HI or AH/VH. Patient is interested in continuing his admission to develop more of a structure for ADLs and to see his mood stable for longer as he feels he asked to discharge too soon at last admission. Patient educated Abilify adjunct started to mood augentation, insomnia, and to aid in mx of psychosis until his Invega Sustenna injection, given 05/29/17 kicks in. On admission day #4, patient noted to be visible in the milieu, calm, cooperative, but isolative. He is up for meals and attending groups. Patient reports benefit from groups and reports he is looking to participate more in the [employer] activities. He expresses insight that he has been isolative and needs to be more social with good people. Patient reports no current AH/VH. He is reports ongoing episodic periods of intense depression associated with SI. He reports these have been less and less frequent since admission. He can't identify a cause. Patient is med compliant and denies med s/e's. Patient reports improved sleep. He reports no current SI/HI or AH/VH. Patient was visited by O staff last night who reported patient is near 100% his baseline mood/cognition/functioning. On admission day #5, patient noted to be visible in the milieu, calm, cooperative, but isolative. He is up for meals and attending groups. Patient reports ongoing episodes where depression "overwhelms" him without noted trigger. He reports ongoing episodic SI w/o plan. He reports he still focuses on his mother's and reports he has nothing in his life worth staying alive for. Patient encouraged to continue developing purpose for his life. He expressed yesterday interest in involving himself more with the [facility]. Patient encouraged to continue developing what his days will look like after discharge. Patient is med compliant and denies med s/e's. Patient reports improved sleep. He is amenable to starting Wellbutrin for ongoing depressed mood , poor energy, motivation, and concentration. He reports no current SI/HI or AH/VH. On admission day #6, patient noted to be visible in the milieu, calm, cooperative, and participating in groups and milieu activities. Patient is more social, but sits alone most of the day. Patient is noticeably brighter in affect and his hygiene is more well-kept. He is up for meals and attending groups. Patient reported another episode yesterday of overwhelming depression associated with SI. He reports ongoing development of what he will do with his days to distract himself from dwelling on negative thoughts. Patient is med compliant and denies med s/e's on addition of Wellbutrin to the regimen. Patient reports fair sleep. He reports no current SI/HI or AH/VH. On admission day #10, day of discharge, patient noted to be lying in bed most of today. He is noted by staff to have, over the weekend, ongoing improved mood , energy, attention to hygeine and grooming, and social interaction with peers. Patient also continues to be more engaged in his therapy. Patient reports feeling ready for discharge. He reports good benefit from attending groups. Patient reports benefit from his time here to continue practicing increased vigilence over his thoughts. He understands coping mechanism of distracting his himself from dwelling on negative thoughts as soon as he recognizes he is doing so. Patient reports benefit to mood and energy level on Wellbutrin and Abilify adjunct for mood. Patient denies med s/e's. Patient reports feeling ready for discharge. Patient is A&Ox4, linear and GD in TP, and future oriented in TC. Patient today denies SI/HI and AH/VH. Patient is psychiatrically stable. Discharge plan has been discussed and patient is amenable and acknowledges understanding. Patient instructed to call the crisis hotline, 911, or self present to a local ED if SI recurs. Patient was amenable and acknowledged understanding of community supports. Patient will be discharge home back to [facility] by [facility] staff. PERTINENT LABS: Laboratory Tests 05/28/17 05/28/17 05/28/17 13:37 13:37 13:37 WBC 15.6 H RBC 5.00 Hgb 15.3 Hct 45 MCV 90 MCH 31 MCHC 34 RDW 14 Plt Count 278 MPV 8 Neut % (Auto) 84.3 H Lymph % (Auto) 7.0 L Mora % (Auto) 7.6 Eos % (Auto) 0.1 Baso % (Auto) 1.0 Absolute Neuts (auto) 13.2 H Absolute Lymphs (auto) 1.1 Absolute Monos (auto) 1.2 H Absolute Eos (auto) 0 Absolute Basos (auto) 0.2 Absolute Nucleated RBC 0.01 Nucleated RBC % 0.1 Sodium 136 Potassium 4.1 Chloride 106 Carbon Dioxide 23 Anion Gap 7 BUN 7 Creatinine 0.61 L Est GFR ( Amer) 178.5 Est GFR (Non-Af Amer) 138.8 BUN/Creatinine Ratio 11.5 Glucose 128 H Hemoglobin A1c Calcium 10.2 Total Bilirubin 0.70 AST 22 ALT 15 Alkaline Phosphatase 66 Total Protein 7.2 Albumin 4.7 Globulin 2.5 Albumin/Globulin Ratio 1.9 Triglycerides 135 Cholesterol 222 LDL Cholesterol 135 HDL Cholesterol 60.3 TSH 1.45 Urine Color Urine Appearance Urine pH Ur Specific [place] Urine Protein Urine Ketones Urine Blood Urine Nitrate Urine Bilirubin Urine Urobilinogen Ur Leukocyte Esterase Urine Glucose Salicylates < 2.50 Urine Opiates Screen None detected Acetaminophen < 15 Ur Barbiturates Screen None detected Ur Phencyclidine Scrn None detected Ur Amphetamines Screen None detected U Benzodiazepines Scrn None detected [place] 0.49 L Urine Cocaine Screen None detected U Cannabinoids Screen None detected Serum Alcohol < 10 05/28/17 05/28/17 13:37 13:37 WBC RBC Hgb Hct MCV MCH MCHC RDW Plt Count MPV Neut % (Auto) Lymph % (Auto) Mora % (Auto) Eos % (Auto) Baso % (Auto) Absolute Neuts (auto) Absolute Lymphs (auto) Absolute Monos (auto) Absolute Eos (auto) Absolute Basos (auto) Absolute Nucleated RBC Nucleated RBC % Sodium Potassium Chloride Carbon Dioxide Anion Gap BUN Creatinine Est GFR ( Amer) Est GFR (Non-Af Amer) BUN/Creatinine Ratio Glucose Hemoglobin A1c 5.9 H Calcium Total Bilirubin AST ALT Alkaline Phosphatase Total Protein Albumin Globulin Albumin/Globulin Ratio Triglycerides Cholesterol LDL Cholesterol HDL Cholesterol TSH Urine Color Straw Urine Appearance Clear Urine pH 7.0 Ur Specific [place] 1.003 L Urine Protein Negative Urine Ketones Negative Urine Blood Negative Urine Nitrate Negative Urine Bilirubin Negative Urine Urobilinogen Negative Ur Leukocyte Esterase Negative Urine Glucose Negative Salicylates Urine Opiates Screen Acetaminophen Ur Barbiturates Screen Ur Phencyclidine Scrn Ur Amphetamines Screen U Benzodiazepines Scrn [place] Urine Cocaine Screen U Cannabinoids Screen Serum Alcohol Consultants: none Discharge Meds: Medication Instructions Recorded Confirmed Type [place] Carbonate ER TAB* 450 mg PO BID #60 tab.er 02/24/17 05/28/17 Rx LORazepam TAB(*) [Ativan 1 MG TAB 2 mg PO BID PRN 05/28/17 05/28/17 History (*)] Paliperidone SUSTENNA* [Invega 234 mg IM MONTHLY 05/28/17 05/28/17 History Sustenna*] Follow-Up: Appt. for within the next 2 weeks scheduled by SW with provider. Clear for Discharge: Adequate Clinical Respons, Acceptable Safety Profile Inpatient DSM-IV Dx: 1. Schizoaffective d/o, Bipolar type MRE depressed, severe. 2. Alcohol use d/o, severe Discharge Planning - Discharge Planning Discharge Plan: Outpatient Follow Up Out[facility] Recommendations for Continuing Care: Medication Management Medications: Current Medications Acetaminophen (Tylenol Tab*) 650 mg PO Q4H PRN PRN Reason: for pain; or Temp >101 F Al Hydrox/Mg Hydrox/Simethicone (Maalox Plus*) 30 ml PO Q4H PRN PRN Reason: INDIGESTION Aripiprazole (Abilify Tab*) 5 mg PO BEDTIME [facility] Last Admin: 06/07/17 20:45 Dose: 5 mg Bupropion HCl (Wellbutrin Sr Tab*) 100 mg PO DAILY [facility] Last Admin: 06/08/17 08:05 Dose: 100 mg Haloperidol (Haldol Tab*) 5 mg PO Q6H PRN PRN Reason: AGITATION Last Admin: 05/31/17 15:48 Dose: 5 mg [place] Carbonate ([place] Carbonate Er Tab*) 450 mg PO BID [facility] Last Admin: 06/08/17 08:05 Dose: 450 mg Lorazepam (Ativan Tab(*)) 2 mg PO BID [facility] Last Admin: 06/08/17 08:05 Dose: 2 mg Mirtazapine (Remeron Tab*) 30 mg PO BEDTIME [facility] Last Admin: 06/07/17 20:45 Dose: 30 mg Multivitamins (Theragran Tab*) 1 tab PO DAILY [facility] Last Admin: 06/08/17 08:05 Dose: 1 tab Nicotine (Nicotine Inhaler*) 10 mg INH Q2H PRN PRN Reason: CRAVING Last Admin: 06/06/17 08:45 Dose: 10 mg Nicotine (Nicotine Patch 21 Mg/24 Hr*) 1 patch TRANSDERM DAILY@0800 [facility] Last Admin: 06/08/17 08:04 Dose: Not Given Nicotine Polacrilex (Nicotine Gum*) 2 mg PO Q2H PRN PRN Reason: CRAVING Last Admin: 06/06/17 20:55 Dose: 2 mg Pharmacy Profile Note (Nicotine Patch Removal Note*) 1 note PATCH OFF 2100 [facility] Last Admin: 06/07/17 20:44 Dose: Not Given Thiamine HCl (Vitamin B-1 Tab*) 100 mg PO DAILY [facility] Last Admin: 06/08/17 08:06 Dose: 100 mg Discharge Planning: Prescriptions provided for discharge [x] Yes [] No Follow up care details as per social work arrangements. Patient response to discharge plan: [] eager for discharge [x] agreeable with discharge plan [] ambivalent about discharge [] disagrees with discharge today
== END 2017-06-08 16:00 | disposition home or self-care (01) | DRG 885 ==
LOC: ED 12:21 → BSU 15:27
PROVIDERS: ADMIT Psychiatry & Neurology Psychiatry; ATTEND Psychiatry & Neurology Psychiatry
DX: F25.0 Schizoaffective disorder, bipolar type (principal); R45.851 Suicidal ideations; F31.4 Bipolar disorder, current episode depressed, severe, without psychotic features; J44.9 Chronic obstructive pulmonary disease, unspecified; F17.210 Nicotine dependence, cigarettes, uncomplicated; F10.20 Alcohol dependence, uncomplicated; Y90.9 Presence of alcohol in blood, level not specified; Z81.8 Family history of other mental and behavioral disorders; Z91.5 Personal history of self-harm; Z56.0 Unemployment, unspecified
CPT/HCPCS: 36415; 80053; 80061; 80178; 80307; 80320; 80329; 81003; 83036; 84443; 85025; 93005; 99222; 99231; 99238; A9270-GY; G0480

== ENCOUNTER 2017-10-07 12:57 | Emergency (ER) | payer MEDICARE, MEDICAID ==
[2017-10-07 14:10] LABS: ABS Basophils 0.1 10^3/ul (0-0.2); ABS Eosinophils 0.2 10^3/ul (0-0.6); ABS Lymphocytes 1.9 10^3/ul (1.0-4.8); ABS Monocytes 0.9 10^3/ul (0-0.8); ABS Nucleated RBC 0 10^3/ul; Eosinophil % 2.5 % (0-6); Hematocrit 46 % (42-52); Hemoglobin 15.8 g/dl (14.0-18.0); Mean Corpuscular HGB Conc 35 g/dl (31-36); Mean Corpuscular Hemoglobin 32 pg (27-31); Mean Corpuscular Volume 91 fL (80-94); Nucleated Red Blood Cells % 0; Platelet Count 242 10^3/ul (150-450); Red Blood Count 5.02 10^6/ul (4.0-5.4); Red Cell Distribution Width 14 % (10.5-15); White Blood Count 8.1 10^3/ul (3.5-10.8)
[2017-10-07 14:31] LABS: EGFR Non-African American 89.4 (>60)
[2017-10-07 14:55] LABS: Urine Appearance Clear; Urine Blood Negative (Negative); Urine Color Yellow; Urine Ketones Negative (Negative); Urine Protein Negative (Negative); Urine Urobilinogen Negative (Negative)
--- NOTE | 2017-10-07 19:10 | ED ---
Karlo Faria Julia, scribed for Len Benítez MD on 10/07/17 at 1333 . Psychiatric Complaint - HPI Summary HPI Summary: This patient is a 52 year old M presenting to [facility] with a chief complaint of worsening SI for the past few days. Patient states that he chose to come to the ED because he was concerned he was going to harm himself. Patient reports a history of self-harm by cutting. Patient has a history of schizophrenia. He denies auditory hallucinations. Patient regularly takes [place]. - History Of Current Complaint Time Seen by Provider: 10/07/17 13:16 Hx Obtained From: Patient Onset/Duration: Gradual Onset, Lasting Days Timing: Constant Character: Depressed Associated Signs And Symptoms: Positive: Negative Related History: Positive For: Prior Psychiatric Issues Has Suicidal: Reports: Thoughts, Has Prior Attempt(s) - Allergies/Home Medications Allergies/Adverse Reactions: Allergies Allergy/AdvReac Type Severity Reaction Status Date / Time No Known Allergies Allergy Verified 02/18/17 17:27 Home Medications: Home Medications Gemfibrozil TAB* [Lopid TAB*] 600 mg PO BID 10/07/17 [History Confirmed ] Ibuprofen TAB* [Advil TAB*] 600 mg PO .BID-TID PRN 10/07/17 [History Confirmed 10/07/17] PMH/Surg Hx/FS Hx/Imm Hx Cardiovascular History: Denies: Other Cardiovascular Problems/Disorders Respiratory History: Reports: Hx Asthma, Hx Chronic Obstructive Pulmonary Disease (COPD) Sensory History: Reports: Hx Cataracts - previously removed, Hx Contacts or Glasses Denies: Hx Deafness, Hx Hearing Aid Opthamlomology History: Reports: Hx Cataracts - previously removed, Hx Contacts or Glasses Psychiatric History: Reports: Hx Anxiety, Hx Depression, Hx Inpatient Treatment , Hx Community Mental Health Tx, Hx Schizophrenia, Hx Suicide Attempt, Other Psychiatric Issues/Disorders - Schizoaffective Denies: Hx Eating Disorder, Hx of Violent Episodes Against Others - Surgical History Surgery Procedure, Year, and Place: appendectomy - Family History Known Family History: Positive: Unknown - adopted - Social History Alcohol Use: Daily Alcohol Amount: states last drink was a "long time ago" Substance Use Type: Reports: None Hx Tobacco Use: Yes Smoking Status (MU): Heavy Every Day Tobacco Smoker Type: Cigarettes Amount Used/How Often: More than 5 daily Length of Time of Smoking/Using Tobacco: 20+ years Have You Smoked in the Last Year: Yes Review of Systems Negative: Fever Positive: Depressed All Other Systems Reviewed And Are Negative: Yes Physical Exam - Summary Physical Exam Summary: Appearance: The patient is well-nourished in no acute distress and in no acute pain. Skin: The skin is warm and dry and skin color reflects adequate perfusion. HEENT: The head is normocephalic and atraumatic. The pupils are equal and reactive. The conjunctivae are clear and without drainage. Nares are patent and without drainage. Mouth reveals moist mucous membranes and the throat is without erythema and exudate. The external ears are intact. The ear canals are patent and without drainage. The tympanic membranes are intact. Neck: the neck is supple with full range of motion and non-tender. There are no carotid bruits. There is no neck vein distension. Respiratory: Chest is non-tender. Lungs are clear to auscultation and breath sounds are symmetrical and equal. Cardiovascular: Heart is regular rate and rhythm. There is no murmur or rub auscultated. There is no peripheral edema and pulses are symmetrical and equal. Abdomen: The abdomen is soft and non-tender. There are normal bowel sounds heard in all four quadrants and there is no organomegaly palpated. Musculoskeletal: There is no back tenderness noted. Extremities are non-tender with full range of motion. There is good capillary refill. There is no peripheral edema or calf tenderness elicited. Neurological: Patient is alert and oriented to person, place and time. The patient has symmetrical motor strength in all four extremities. Cranial nerves are grossly intact. Deep tendon reflexes are symmetrical and equal in all four extremities. Psychiatric: The patient has an appropriate affect and does not exhibit any anxiety or depression. Triage Information Reviewed: Yes Vital Signs On Initial Exam: Initial Vitals Temp Pulse Resp BP Pulse Ox 99.3 F 96 11 123/87 96 10/07/17 14:28 10/07/17 14:28 10/07/17 14:28 10/07/17 14:28 10/07/17 14:28 Vital Signs Reviewed: Yes Diagnostics - Vital Signs Vital Signs Temp Pulse Resp BP Pulse Ox 10/07/17 14:28 99.3 F 96 11 123/87 96 - Laboratory Lab Results: Lab Results 10/07/17 10/07/17 10/07/17 Range/Units 13:21 13:21 14:00 WBC (3.5-10.8) 10^3/ul RBC (4.0-5.4) 10^6/ul Hgb (14.0-18.0) g/dl Hct (42-52) % MCV (80-94) fL MCH (27-31) pg MCHC (31-36) g/dl RDW (10.5-15) % Plt Count (150-450) 10^3/ul MPV (7.4-10.4) um3 Neut % (Auto) (38-83) % Lymph % (Auto) (25-47) % [place] % (Auto) (0-7) % Eos % (Auto) (0-6) % Baso % (Auto) (0-2) % Absolute Neuts (auto) (1.5-7.7) 10^3/ul Absolute Lymphs (auto) (1.0-4.8) 10^3/ul Absolute Monos (auto) (0-0.8) 10^3/ul Absolute Eos (auto) (0-0.6) 10^3/ul Absolute Basos (auto) (0-0.2) 10^3/ul Absolute Nucleated RBC 10^3/ul Nucleated RBC % Sodium 134 (133-145) mmol/L Potassium 4.2 (3.5-5.0) mmol/L Chloride 107 (101-111) mmol/L Carbon Dioxide 19 L (22-32) mmol/L Anion Gap 8 (2-11) mmol/L BUN 11 (6-24) mg/dL Creatinine 0.89 (0.67-1.17) mg/dL Est GFR ( Amer) 115.0 (>60) Est GFR (Non-Af Amer) 89.4 (>60) BUN/Creatinine Ratio 12.4 (8-20) Glucose 112 H (70-100) mg/dL Calcium 10.1 (8.6-10.3) mg/dL Total Bilirubin 0.40 (0.2-1.0) mg/dL AST 18 (13-39) U/L ALT 16 (7-52) U/L Alkaline Phosphatase 68 (34-104) U/L Total Protein 7.0 (6.4-8.9) g/dL Albumin 4.4 (3.2-5.2) g/dL Globulin 2.6 (2-4) g/dL Albumin/Globulin Ratio 1.7 (1-3) TSH 2.90 (0.34-5.60) mcIU/mL Urine Color Yellow Urine Appearance Clear Urine pH 6.0 (5-9) Ur Specific [place] 1.010 (1.010-1.030) Urine Protein Negative (Negative) Urine Ketones Negative (Negative) Urine Blood Negative (Negative) Urine Nitrate Negative (Negative) Urine Bilirubin Negative (Negative) Urine Urobilinogen Negative (Negative) Ur Leukocyte Esterase Negative (Negative) Urine Glucose Negative (Negative) Salicylates < 2.50 (<30) mg/dL Urine Opiates Screen None detected (None Detect) Acetaminophen < 15 mcg/mL Ur Barbiturates Screen None detected (None Detect) Ur Phencyclidine Scrn None detected (None Detect) Ur Amphetamines Screen None detected (None Detect) U Benzodiazepines Scrn None detected (None Detect) [place] 0.81 (0.6-1.2) mmol/L Urine Cocaine Screen None detected (None Detect) U Cannabinoids Screen None detected (None Detect) Serum Alcohol < 10 (<10) mg/dL 10/07/17 Range/Units 14:00 WBC 8.1 (3.5-10.8) 10^3/ul RBC 5.02 (4.0-5.4) 10^6/ul Hgb 15.8 (14.0-18.0) g/dl Hct 46 (42-52) % MCV 91 (80-94) fL MCH 32 H (27-31) pg MCHC 35 (31-36) g/dl RDW 14 (10.5-15) % Plt Count 242 (150-450) 10^3/ul MPV 8.0 (7.4-10.4) um3 Neut % (Auto) 61.4 (38-83) % Lymph % (Auto) 24.0 L (25-47) % [place] % (Auto) 10.7 H (0-7) % Eos % (Auto) 2.5 (0-6) % Baso % (Auto) 1.4 (0-2) % Absolute Neuts (auto) 5.0 (1.5-7.7) 10^3/ul Absolute Lymphs (auto) 1.9 (1.0-4.8) 10^3/ul Absolute Monos (auto) 0.9 H (0-0.8) 10^3/ul Absolute Eos (auto) 0.2 (0-0.6) 10^3/ul Absolute Basos (auto) 0.1 (0-0.2) 10^3/ul Absolute Nucleated RBC 0 10^3/ul Nucleated RBC % 0 Sodium (133-145) mmol/L Potassium (3.5-5.0) mmol/L Chloride (101-111) mmol/L Carbon Dioxide (22-32) mmol/L Anion Gap (2-11) mmol/L BUN (6-24) mg/dL Creatinine (0.67-1.17) mg/dL Est GFR ( Amer) (>60) Est GFR (Non-Af Amer) (>60) BUN/Creatinine Ratio (8-20) Glucose (70-100) mg/dL Calcium (8.6-10.3) mg/dL Total Bilirubin (0.2-1.0) mg/dL AST (13-39) U/L ALT (7-52) U/L Alkaline Phosphatase (34-104) U/L Total Protein (6.4-8.9) g/dL Albumin (3.2-5.2) g/dL Globulin (2-4) g/dL Albumin/Globulin Ratio (1-3) TSH (0.34-5.60) mcIU/mL Urine Color Urine Appearance Urine pH (5-9) Ur Specific [place] (1.010-1.030) Urine Protein (Negative) Urine Ketones (Negative) Urine Blood (Negative) Urine Nitrate (Negative) Urine Bilirubin (Negative) Urine Urobilinogen (Negative) Ur Leukocyte Esterase (Negative) Urine Glucose (Negative) Salicylates (<30) mg/dL Urine Opiates Screen (None Detect) Acetaminophen mcg/mL Ur Barbiturates Screen (None Detect) Ur Phencyclidine Scrn (None Detect) Ur Amphetamines Screen (None Detect) U Benzodiazepines Scrn (None Detect) [place] (0.6-1.2) mmol/L Urine Cocaine Screen (None Detect) U Cannabinoids Screen (None Detect) Serum Alcohol (<10) mg/dL Result Diagrams: 10/07/17 14:00 10/07/17 14:00 Lab Statement: Any lab studies that have been ordered have been reviewed, and results considered in the medical decision making process. Course/Dx - Course Course Of Treatment: Mr. Draper has been medically cleared and is awaiting a MHE. - Differential Dx/Clinical Impression Provider Diagnosis: Psychosis Discharge - Sign-Out/Discharge Documenting (check all that apply): Sign-Out Patient Signing out patient TO: Zulema Drummond - Discharge Plan Referrals: Juan Espinoza MD [Primary Care Provider] - The documentation as recorded by the Karlo nation Julia accurately reflects the service I personally performed and the decisions made by , Len Benítez MD.
[2017-10-08] MEDS ORDERED: Mouth Piece, Nicotine* 1 EACH CARTRIDGE INH PRN (09:28)
[2017-10-08] MEDS ORDERED: Nicotine Inhaler* 10 MG AMP INH PRN (09:28)
[2017-10-08] MEDS ORDERED: LORazepam TAB(*) 1 MG PO PRN (09:30)
--- NOTE | 2017-10-08 09:48 | UC ---
- Progress Note Progress Note: Patient is resting comfortably in bed. Patient reports tolerating breakfast well. Awake alert makes eye contract. Patient has no c/o Medications have been confirmed and reordered. I have been unable to confirm that Invega Im was given this week. Mike GUILLEN is checking with [facility] services. Nicotine Inhaler ordered at patients request. Will continue to follow - Consult/PCP Time Called: 14:27 Course/Dx - Diagnoses Provider Diagnoses: Psychosis Discharge - Sign-Out/Discharge Documenting (check all that apply): Receiving Sign-Out Receiving patient FROM: Len Benítez - Discharge Plan Referrals: Juan Espinoza MD [Primary Care Provider] -
[2017-10-08] MEDS ORDERED: Lithium Carbonate ER* 450 MG TAB.ER PO SCH (10:00)
[2017-10-08] MEDS ORDERED: buPROPion SR TAB.SR* 100 MG PO SCH (10:00)
[2017-10-08] MEDS ORDERED: Gemfibrozil TAB* 600 MG PO SCH (10:00)
--- NOTE | 2017-10-08 15:18 | CONSULT ---
Consult Consult: Mr. Palumbo came in on a previous shift hearing voices telling him to hurt himself. He was medically cleared and had a MHE. He has been in the [facility] awaiting transfer and is now accepted at [facility] in [place]. He is being transferred in stable condition with a diagnosis of psychosis.
[2017-10-08] MEDS ORDERED: Mirtazapine TAB* 15 MG PO SCH (21:00)
[2017-10-08] MEDS ORDERED: ARIPiprazole TAB* 5 MG PO SCH (21:00)
[2017-10-12 12:12] VITALS: BP 0/0
== END 2017-10-08 14:24 | disposition home or self-care (01) ==
LOC: ED 12:57
DX: F29 Unspecified psychosis not due to a substance or known physiological condition (principal)
CPT/HCPCS: 36415; 80053; 80178; 80307; 80320; 80329; 81003; 84443; 85025; 93005; 99284; A9270-GY; G0480

== ENCOUNTER 2019-10-21 06:41 | Emergency (ER) | payer MEDICARE, MEDICAID ==
--- NOTE | 2019-10-21 06:50 | ED ---
GI/ HPI - HPI Summary HPI Summary: 54-year-old male with significant past medical history of psychosis presents to the emergency department today from [facility] with chief complaint of "my testicle exploded and now they're being sucked into my body." At this time patient states she has no testicular pain however he does endorse burning in his penis with urination. Patient denies sexual activity or past medical history of cryptorchidism, testicular torsion. Patient states he awoke this morning from sleep with these symptoms. Patient is otherwise well and denies fever, chest and abdominal pain, nausea, vomiting, diarrhea, shortness of breath , penile discharge. - History of Current Complaint Stated Complaint: TESTICLE PAIN PER EMS Hx Obtained From: Patient Onset/Duration: Started Hours Ago Timing: Constant Severity: Mild Current Severity: None Additional Locations for Males: Testicles Associated Signs and Symptoms: Positive: Dysuria. Negative: Nausea, Vomiting, Fever, Abdominal Pain, New Sexual Partner Additional Signs & Symptoms: Negative: Penile Swelling, Penile Discharge - Additional Pertinent History Primary Care Physician: VICENTE - Allergy/Home Medications Allergies/Adverse Reactions: Allergies Allergy/AdvReac Type Severity Reaction Status Date / Time No Known Allergies Allergy Verified 10/21/19 07:00 Home Medications: Home Medications [place] Carbonate ER TAB* 450 mg PO BID #60 tab.er 06/08/17 [Rx Confirmed ] Gemfibrozil TAB* [Lopid TAB*] 600 mg PO BID 10/07/17 [History Confirmed ] ARIPiprazole TAB* [Abilify TAB*] 10 mg PO DAILY 10/21/19 [History Confirmed 10/06] ARIPiprazole [Aripiprazole] 10 mg PO QPM 10/21/19 [History Confirmed 10/21/19] Quetiapine Fumarate [Seroquel 50 mg tab] 100 mg PO QPM 10/21/19 [History Confirmed 10/21/19] buPROPion SR TAB* [Wellbutrin SR TAB*] 200 mg PO DAILY 10/21/19 [History Confirmed 10/21/19] PMH/Surg Hx/FS Hx/Imm Hx Cardiovascular History: Denies: Other Cardiovascular Problems/Disorders Respiratory History: Reports: Hx Asthma, Hx Chronic Obstructive Pulmonary Disease (COPD) Sensory History: Reports: Hx Cataracts - previously removed, Hx Contacts or Glasses Denies: Hx Deafness, Hx Hearing Aid Opthamlomology History: Reports: Hx Cataracts - previously removed, Hx Contacts or Glasses Psychiatric History: Reports: Hx Anxiety, Hx Depression, Hx Inpatient Treatment , Hx Community Mental Health Tx, Hx Schizophrenia, Hx Suicide Attempt, Other Psychiatric Issues/Disorders - Schizoaffective Denies: Hx Eating Disorder, Hx of Violent Episodes Against Others - Surgical History Surgery Procedure, Year, and Place: appendectomy - Family History Known Family History: Positive: Unknown - adopted - Social History Alcohol Use: Daily Alcohol Amount: states last drink was a "long time ago" Substance Use Type: Reports: None Hx Tobacco Use: Yes Smoking Status (MU): Heavy Every Day Tobacco Smoker Type: Cigarettes Amount Used/How Often: More than 5 daily Length of Time of Smoking/Using Tobacco: 20+ years Have You Smoked in the Last Year: Yes Review of Systems Constitutional: Negative Eyes: Negative ENT: Negative Cardiovascular: Negative Respiratory: Negative Gastrointestinal: Negative Positive: burning, dysuria, pain. Negative: discharge Musculoskeletal: Negative Skin: Negative Neurological/Mental Status: Negative Positive: Anxious. Negative: Depressed All Other Systems Reviewed And Are Negative: Yes Physical Exam - Summary Physical Exam Summary: Patient is anxious and makes poor eye contact in conversation. Patient is resting comfortably on the hospital stretcher. Patient is in no acute distress. Testicular exam chaperoned by WILMER Joseph. Infection of the testicles reveals no lesions or erythema. The right testicle is enlarged. Right testicle is hard to the touch and non-painful with palpation. It is difficult to appreciate a cremasteric reflex on the right however it is noted positive on the left. There is no noted discharge from the penis. Internal exam not impressive for inguinal hernia. Triage Information Reviewed: Yes Vital Signs Reviewed: Yes Appearance: Positive: Well-Appearing, No Pain Distress, Well-Nourished Skin: Positive: Warm, Skin Color Reflects Adequate Perfusion Eyes: Positive: EOMI, YONG ENT: Positive: Hearing grossly normal Respiratory/Lung Sounds: Positive: Clear to Auscultation, Breath Sounds Present Cardiovascular: Positive: RRR, S1, S2 Abdomen Description: Positive: Nontender, Soft. Negative: Distended, Guarding Bowel Sounds: Positive: Present Male Genital Exam: Positive: No Hernia. Negative: Epididymal Tenderness, Erythema, Inguinal Tenderness, Lesions, Scrotum Tenderness (R), Scrotum Tenderness (L), Testicular Tenderness (R), Testicular Tenderness (L), Urethral Discharge Musculoskeletal: Positive: Strength/ROM Intact Neurological: Positive: Sensory/Motor Intact, Alert, Oriented to Person Place, Time, Normal Gait, Facial Symmetry, Speech Normal Psychiatric: Positive: Normal, Anxious AVPU Assessment: Alert Procedures - Sedation Patient Received Moderate/Deep Sedation with Procedure: No Diagnostics - Laboratory Result Diagrams: 10/21/19 08:15 10/21/19 08:15 Lab Statement: Any lab studies that have been ordered have been reviewed, and results considered in the medical decision making process. GIGU Course/Dx - Course Course Of Treatment: Patient was evaluated in the emergency department today for chief complaint of testicular problems. Vitals noted and stable. Physical exam revealed a enlarged hard nontender right testicle. Testicular ultrasound was done which shows no evidence of testicular torsion, epididymoorchitis or presence of an intratesticular mass. There is a large simple appearing right hydrocele. 0.4 cm epididymal head cyst or spermatocele without concern. Patient continues to have no pain, but was given 2mg ativan PO for hyperventilation and extreme anxiety. Patient's physical exam is consistent with a large hydrocele noted on the right testicular ultrasound. Urinalysis was done which showed no UTI. Labs show Laboratory studies returned showing leukocytosis with white blood cell count of 12.5 with an ANC of 9.7. Coagulation studies within normal limits. There are no significant electrolyte abnormalities. BUN elevated at 25. Creatinine 0.91. AG 17, CO2 13, likely seconadry to hyperventillation and anxiety. Patient has large right hydrocele with no other evidence of pathology requiring intervention or treatment this time. Patient discharged with outpatient follow-up. - Diagnoses Differential Diagnoses - Male: Epididymitis, Orchitis, STD, Testicular Torsion, Urethritis, Urinary Tract Infection Provider Diagnoses: Testicular swelling, right, Hydrocele Discharge ED - Sign-Out/Discharge Documenting (check all that apply): Patient Departure - Discharge Plan Condition: Stable Disposition: HOME Patient Education Materials: Hydrocele (ED) Referrals: Sanju Bryan MD [Primary Care Provider] - 3 Days Additional Instructions: You were diagnosed with an hydrocele of the right testicle. These are benign and do not require intervention and usually resolve on their own. Please follow -up with your primary care physician in 3-5 days for further evaluation and management. Please return to this emergency department immediately should you develop any new or worsening symptoms such as abdominal pain, testicular pain. - Billing Disposition and Condition Condition: STABLE Disposition: Home
[2019-10-21] MEDS ORDERED: LORazepam TAB(*) 1 MG PO ONE (08:36)
[2019-10-21 08:37] LABS: ABS Basophils 0.1 10^3/ul (0-0.2); ABS Lymphocytes 1.8 10^3/ul (1.0-4.8); ABS Monocytes 0.8 10^3/ul (0-0.8); ABS Neutrophils 9.7 10^3/ul (1.5-7.7); Eosinophil % 0.2 %; Hematocrit 50 % (42-52); Hemoglobin 16.8 g/dL (14.0-18.0); Lymphocyte % 14.7 %; Mean Corpuscular HGB Conc 34 g/dL (31-36); Mean Corpuscular Hemoglobin 30 pg (27-31); Mean Corpuscular Volume 89 fL (80-94); Mean Platelet Volume 8.2 fL (7.4-10.4); Platelet Count 365 10^3/uL (150-450); Red Blood Count 5.64 10^6 /uL (4.18-5.48); Red Cell Distribution Width 14 % (10-15); White Blood Count 12.5 10^3/uL (3.5-10.8)
[2019-10-21 08:53] LABS: Albumin/Globulin Ratio 1.7 (1-3); BUN/Creatinine Ratio 27.5 (8-20); EGFR African American 104.7 (>60); EGFR Non-African American 86.5 (>60); Potassium 4.2 mmol/L (3.5-5.0); Total Bilirubin 1.2 mg/dL (0.2-1.0)
[2019-10-21 08:55] LABS: Activated Partial Thrombo Time 36.6 seconds (26.0-38.0); INR 1.09 (0.82-1.09)
[2019-10-21 09:53] LABS: Urine Appearance Clear; Urine Bilirubin Negative (Negative); Urine Blood Negative (Negative); Urine Color Yellow; Urine Glucose Negative (Negative); Urine Ketones 2+ (Negative); Urine Nitrite Negative (Negative); Urine Protein Negative (Negative); Urine Specific Gravity 1.023 (1.010-1.030); Urine Urobilinogen Negative (Negative)
[2019-10-21 10:22] VITALS: BP 121/84
[2019-10-21 14:46] LABS: Chlamydia trachomatis NAA Negative (Negative); Neisseria gonorrhoeae (GC) NAA Negative (Negative)
== END 2019-10-21 10:21 | disposition home or self-care (01) ==
LOC: ED 06:41
DX: N50.89 Other specified disorders of the male genital organs (principal); N43.3 Hydrocele, unspecified; F41.9 Anxiety disorder, unspecified; F32.9 Major depressive disorder, single episode, unspecified; F17.210 Nicotine dependence, cigarettes, uncomplicated
CPT/HCPCS: 36415; 76870; 80053; 81003; 85025; 85610; 85730; 87491; 87591; 99283; A9270-GY

== ENCOUNTER 2019-11-28 08:28 | Inpatient (IN) ==
[2019-11-28 09:11] LABS: Urine Appearance Clear; Urine Bilirubin Negative (Negative); Urine Blood Negative (Negative); Urine Color Yellow; Urine Glucose Negative (Negative); Urine Ketones Negative (Negative); Urine Nitrite Negative (Negative); Urine Protein Negative (Negative); Urine Specific Gravity 1.011 (1.010-1.030); Urine Urobilinogen Negative (Negative)
[2019-11-28 09:12] LABS: ABS Basophils 0.1 10^3/ul (0-0.2); ABS Eosinophils 0.1 10^3/ul (0-0.6); ABS Lymphocytes 1.5 10^3/ul (1.0-4.8); ABS Monocytes 0.9 10^3/ul (0-0.8); Eosinophil % 0.8 %; Hematocrit 44 % (42-52); Hemoglobin 14.9 g/dL (14.0-18.0); Lymphocyte % 14.2 %; Mean Corpuscular HGB Conc 34 g/dL (31-36); Mean Corpuscular Hemoglobin 31 pg (27-31); Mean Corpuscular Volume 90 fL (80-94); Mean Platelet Volume 7.7 fL (7.4-10.4); Nucleated Red Blood Cells % 0.1; Platelet Count 333 10^3/uL (150-450); Red Blood Count 4.89 10^6 /uL (4.18-5.48); Red Cell Distribution Width 14 % (10-15); White Blood Count 10.6 10^3/uL (3.5-10.8)
[2019-11-28 09:26] LABS: Urine Bacteria Absent (Absent); Urine Red Blood Cell Trace(0-2/hpf) (Absent); Urine White Blood Cell 2+(11-20/hpf) (Absent)
[2019-11-28 09:32] LABS: ALT 29 U/L (7-52); AST 49 U/L (13-39); Albumin 4.6 g/dL (3.2-5.2); Albumin/Globulin Ratio 1.8 (1-3); Alkaline Phosphatase 97 U/L (34-104); Anion Gap 8 mmol/L (2-11); Blood Urea Nitrogen 16 mg/dL (6-24); CO2 Carbon Dioxide 24 mmol/L (22-32); Calcium 9.8 mg/dL (8.6-10.3); Chloride 105 mmol/L (101-111); EGFR African American 114.8 (>60); EGFR Non-African American 94.9 (>60); Globulin 2.5 g/dL (2-4); Glucose 131 mg/dL (70-100); Potassium 4.2 mmol/L (3.5-5.0); Sodium 137 mmol/L (135-145); Total Protein 7.1 g/dL (6.4-8.9)
[2019-11-28 09:33] LABS: Urine Benzodiazepine Screen None Detected (None Detect); Urine Opiates Screen None Detected (None Detect)
[2019-11-28 09:44] LABS: Acetaminophen < 15 mcg/mL; Alcohol, S < 10 mg/dL (<10); Salicylate < 2.50 mg/dL (<30)
[2019-11-28 09:59] LABS: TSH (Thyroid Stimulating Horm) 1.03 mcIU/mL (0.34-5.60)
[2019-11-28] MEDS ORDERED: Al Hydrox/Mg Hydrox/Simet LIQ 30 ML UDC PO PRN (12:32)
[2019-11-28] MEDS: Gemfibrozil 600 mg PO SCH (21:22)
[2019-11-28] MEDS: Lithium Carbonate ER 450mg TAB PO SCH ×2 (21:22→21:26)
[2019-11-29] MEDS: Gemfibrozil 600 mg PO SCH ×2 (09:31→20:39)
[2019-11-29] MEDS: Lithium Carbonate ER 450mg TAB PO SCH ×2 (09:31→20:39)
[2019-11-30] MEDS: Lithium Carbonate ER 450mg TAB PO SCH ×2 (09:21→21:08)
[2019-11-30] MEDS: Gemfibrozil 600 mg PO SCH ×2 (09:21→21:07)
[2019-11-30 09:25] LABS: HDL Cholesterol 65.1 mg/dL
[2019-12-01] MEDS: Lithium Carbonate ER 450mg TAB PO SCH ×2 (09:04→22:03)
[2019-12-01] MEDS: Gemfibrozil 600 mg PO SCH ×2 (09:04→22:03)
[2019-12-02] MEDS: Gemfibrozil 600 mg PO SCH ×2 (10:43→21:13)
[2019-12-02] MEDS: Lithium Carbonate ER 450mg TAB PO SCH ×2 (10:43→21:13)
[2019-12-03] MEDS: Gemfibrozil 600 mg PO SCH ×2 (08:34→20:20)
[2019-12-03] MEDS: Lithium Carbonate ER 450mg TAB PO SCH ×2 (08:35→20:20)
[2019-12-04] MEDS: Gemfibrozil 600 mg PO SCH ×2 (09:24→20:52)
[2019-12-04] MEDS: Lithium Carbonate ER 450mg TAB PO SCH ×2 (09:24→20:52)
[2019-12-05] MEDS: Lithium Carbonate ER 450mg TAB PO SCH ×2 (09:55→21:13)
[2019-12-05] MEDS: Gemfibrozil 600 mg PO SCH ×2 (09:56→21:13)
[2019-12-06] MEDS: Lithium Carbonate ER 450mg TAB PO SCH (09:26)
[2019-12-06] MEDS: Gemfibrozil 600 mg PO SCH (09:27)
[2019-12-06 10:19] VITALS: BP 110/76
[2019-12-07] MEDS ORDERED: buPROPion SR 200 mg TAB.SR PO SCH (09:00)
== END 2019-12-06 13:00 | disposition home or self-care (01) | DRG 885 ==
LOC: ED 08:28 → BSU 14:27
PROVIDERS: ADMIT Psychiatry & Neurology Psychiatry; ATTEND Psychiatry & Neurology Psychiatry

== ENCOUNTER 2020-10-06 21:29 | Inpatient (IN) ==
[2020-10-06 22:18] LABS: ABS Basophils 0.1 10^3/ul (0-0.2); ABS Eosinophils 0.5 10^3/ul (0-0.6); ABS Lymphocytes 2.9 10^3/ul (1.0-4.8); ABS Neutrophils 5.2 10^3/ul (1.5-7.7); Eosinophil % 5.1 %; Hematocrit 41 % (42-52); Hemoglobin 13.4 g/dL (14.0-18.0); Lymphocyte % 29.9 %; Mean Corpuscular HGB Conc 33 g/dL (31-36); Mean Corpuscular Hemoglobin 30 pg (27-31); Mean Corpuscular Volume 89 fL (80-94); Mean Platelet Volume 7.1 fL (7.4-10.4); Platelet Count 347 10^3/uL (150-450); Red Blood Count 4.55 10^6 /uL (4.18-5.48); Red Cell Distribution Width 14 % (10-15); White Blood Count 9.8 10^3/uL (3.5-10.8)
[2020-10-06 22:25] LABS: Urine Appearance Clear; Urine Bilirubin Negative (Negative); Urine Blood Negative (Negative); Urine Color Yellow; Urine Glucose Negative (Negative); Urine Ketones Negative (Negative); Urine Nitrite Negative (Negative); Urine Protein Negative (Negative); Urine Specific Gravity 1.013 (1.010-1.030); Urine Urobilinogen Negative (Negative)
[2020-10-06 22:34] LABS: ALT 18 U/L (7-52); AST 16 U/L (13-39); Albumin/Globulin Ratio 1.7 (1-3); Alkaline Phosphatase 84 U/L (34-104); Anion Gap 8 mmol/L (2-11); BUN/Creatinine Ratio 18.1 (8-20); Blood Urea Nitrogen 13 mg/dL (6-24); CO2 Carbon Dioxide 20 mmol/L (22-32); Calcium 9.1 mg/dL (8.6-10.3); Chloride 107 mmol/L (101-111); EGFR African American 136.6 (>60); EGFR Non-African American 112.9 (>60); Globulin 2.3 g/dL (2-4); Glucose 137 mg/dL (70-100); Potassium 4.1 mmol/L (3.5-5.0); Sodium 135 mmol/L (135-145); Total Protein 6.3 g/dL (6.4-8.9)
[2020-10-06 22:35] LABS: Acetaminophen < 15 mcg/mL; Alcohol, S < 10 mg/dL (<10); Salicylate < 2.50 mg/dL (<30)
[2020-10-06 22:48] LABS: TSH Ultra Thyroid Stim Horm 2.87 mcIU/mL (0.34-5.60)
[2020-10-06 22:52] LABS: Urine Benzodiazepine Screen None Detected (None Detect); Urine Cannabinoids Screen None Detected (None Detect); Urine Opiates Screen None Detected (None Detect)
[2020-10-07] MEDS ORDERED: Al Hydrox/Mg Hydrox/Simet LIQ 30 ML UDC PO PRN (01:48)
[2020-10-07] MEDS ORDERED: LORazepam PO 0-6 for WAM protocol PO SCH (02:00)
[2020-10-07] MEDS ORDERED: Nicotine GUM 2MG FRUIT FLAVOR PO PRN (02:00)
[2020-10-07] MEDS: Nicotine PATCH 21 MG/24 HR PATCH TRANSDERM SCH (08:04)
[2020-10-07] MEDS: Vitamin THERAPEUTIC TAB PO SCH (08:04)
[2020-10-07] MEDS: Lithium Carbonate ER 450mg TAB PO SCH (22:20)
[2020-10-07] MEDS ORDERED: PTO: Latanoprost 0.005% 2.5 ml BTL BOTH EYES ONE (23:00)
[2020-10-08] MEDS: Nicotine PATCH 21 MG/24 HR PATCH TRANSDERM SCH (09:50)
[2020-10-08] MEDS: Lithium Carbonate ER 450mg TAB PO SCH ×2 (09:50→20:19)
[2020-10-08] MEDS: Vitamin THERAPEUTIC TAB PO SCH (09:50)
[2020-10-08] MEDS ORDERED: Latanoprost 0.005% 2.5 ml BTL BOTH EYES SCH ×2 (10:00→10:13)
[2020-10-08] MEDS: PTO: Dorzolamide 2% OPTH (NF) 10 ML BTL RIGHT EYE ONE ×2 (10:17→10:18)
[2020-10-08] MEDS: OPTH RIGHT EYE SCH ×3 (10:34→20:02)
[2020-10-08] MEDS: DORZOLAMIDE 2% RIGHT EYE SCH ×3 (10:34→20:02)
[2020-10-08] MEDS ORDERED: Nicotine GUM 4MG FRUIT FLAVOR PO PRN (13:21)
[2020-10-08] MEDS ORDERED: Paliperidone SUSTENNA 234 MG/1.5 ML IM ONE (14:53)
[2020-10-08] MEDS ORDERED: LATANOPROST 0.005% BOTH EYES SCH (21:10)
[2020-10-09] MEDS: Lithium Carbonate ER 450mg TAB PO SCH (09:47)
[2020-10-09] MEDS: Vitamin THERAPEUTIC TAB PO SCH (09:47)
[2020-10-09] MEDS: DORZOLAMIDE 2% RIGHT EYE SCH (09:48)
[2020-10-09] MEDS: OPTH RIGHT EYE SCH (09:48)
[2020-10-09] MEDS: Nicotine PATCH 21 MG/24 HR PATCH TRANSDERM SCH (09:50)
[2020-10-09 10:37] VITALS: BP 111/77
== END 2020-10-09 11:35 | disposition home or self-care (01) | DRG 885 ==
LOC: ED 21:29 → BSU 10-07 01:25
PROVIDERS: ADMIT Psychiatry & Neurology Addiction Psychiatry; ATTEND Psychiatry & Neurology Psychiatry

== ENCOUNTER 2020-12-17 19:02 | Inpatient (IN) ==
[2020-12-17 19:32] LABS: ABS Basophils 0.1 10^3/ul (0-0.2); ABS Eosinophils 0.1 10^3/ul (0-0.6); ABS Lymphocytes 2.2 10^3/ul (1.0-4.8); ABS Monocytes 0.8 10^3/ul (0-0.8); Eosinophil % 1.2 %; Hematocrit 42 % (42-52); Hemoglobin 14.1 g/dL (14.0-18.0); Lymphocyte % 24.3 %; Mean Corpuscular HGB Conc 34 g/dL (31-36); Mean Corpuscular Hemoglobin 30 pg (27-31); Mean Corpuscular Volume 89 fL (80-94); Mean Platelet Volume 7.2 fL (7.4-10.4); Platelet Count 404 10^3/uL (150-450); Red Blood Count 4.67 10^6 /uL (4.18-5.48); Red Cell Distribution Width 15 % (10-15); White Blood Count 9.2 10^3/uL (3.5-10.8)
[2020-12-17 19:42] LABS: Urine Appearance Clear; Urine Bilirubin Negative (Negative); Urine Blood Negative (Negative); Urine Color Colorless; Urine Glucose Negative (Negative); Urine Ketones Negative (Negative); Urine Nitrite Negative (Negative); Urine Protein Negative (Negative); Urine Specific Gravity 1.002 (1.002-1.030); Urine Urobilinogen Negative (Negative)
[2020-12-17 19:48] LABS: ALT 16 U/L (7-52); AST 19 U/L (13-39); Albumin 4.5 g/dL (3.2-5.2); Alkaline Phosphatase 68 U/L (35-149); Anion Gap 10 mmol/L (2-11); Blood Urea Nitrogen 6 mg/dL (6-24); CO2 Carbon Dioxide 22 mmol/L (22-32); Calcium 9.4 mg/dL (8.6-10.3); Chloride 103 mmol/L (101-111); EGFR African American 134.5 (>60); EGFR Non-African American 111.1 (>60); Globulin 2.3 g/dL (2-4); Glucose 92 mg/dL (70-100); Potassium 3.8 mmol/L (3.5-5.0); Sodium 135 mmol/L (135-145); Total Protein 6.8 g/dL (6.4-8.9)
[2020-12-17 19:52] LABS: Urine Benzodiazepine Screen None Detected (None Detect); Urine Cannabinoids Screen None Detected (None Detect); Urine Opiates Screen None Detected (None Detect)
[2020-12-17 20:21] LABS: Acetaminophen < 15 mcg/mL; Alcohol, S 68 mg/dL (<10); Salicylate < 2.50 mg/dL (<30)
[2020-12-17 20:36] LABS: TSH Ultra Thyroid Stim Horm 1.21 mcIU/mL (0.34-5.60)
[2020-12-18] MEDS ORDERED: Al Hydrox/Mg Hydrox/Simet LIQ 30 ML UDC PO PRN (06:05)
[2020-12-18] MEDS ORDERED: Nicotine GUM 2MG FRUIT FLAVOR PO PRN (07:00)
[2020-12-18] MEDS: Vitamin THERAPEUTIC TAB PO SCH (11:06)
[2020-12-18] MEDS: Nicotine PATCH 21 MG/24 HR PATCH TRANSDERM SCH (11:06)
[2020-12-19 08:26] LABS: HDL Cholesterol 51.6 mg/dL
[2020-12-19] MEDS ORDERED: Dorzolamide 2% OPTH (NF) 10 ML BTL RIGHT EYE SCH (11:00)
[2020-12-19] MEDS: Gemfibrozil 600 mg PO SCH ×2 (12:27→22:39)
[2020-12-19] MEDS: Lithium Carbonate ER 450mg TAB PO SCH ×2 (12:28→22:38)
[2020-12-19] MEDS: Vitamin THERAPEUTIC TAB PO SCH (12:29)
[2020-12-19] MEDS: Nicotine PATCH 21 MG/24 HR PATCH TRANSDERM SCH (12:29)
[2020-12-19] MEDS ORDERED: Paliperidone SUSTENNA 156 MG/1 ML IM ONE (13:24)
[2020-12-19] MEDS: PTO: Latanoprost 0.005% 2.5 ml BTL BOTH EYES SCH (22:38)
[2020-12-19] MEDS: PTO: Dorzolamide 2% OPTH (NF) 10 ML BTL RIGHT EYE SCH (22:39)
[2020-12-20] MEDS: Gemfibrozil 600 mg PO SCH ×2 (08:48→20:04)
[2020-12-20] MEDS: Nicotine PATCH 21 MG/24 HR PATCH TRANSDERM SCH (08:48)
[2020-12-20] MEDS: PTO: Dorzolamide 2% OPTH (NF) 10 ML BTL RIGHT EYE SCH ×2 (08:48→20:03)
[2020-12-20] MEDS: Lithium Carbonate ER 450mg TAB PO SCH ×2 (08:48→20:04)
[2020-12-20] MEDS: Vitamin THERAPEUTIC TAB PO SCH (08:49)
[2020-12-20] MEDS: OLANzapine 5 mg TAB*ODT PO PRN (12:32)
[2020-12-20] MEDS: PTO: Latanoprost 0.005% 2.5 ml BTL BOTH EYES SCH (19:04)
[2020-12-21 08:37] VITALS: BP 114/60
[2020-12-21] MEDS: Vitamin THERAPEUTIC TAB PO SCH (09:30)
[2020-12-21] MEDS: Nicotine PATCH 21 MG/24 HR PATCH TRANSDERM SCH (09:30)
[2020-12-21] MEDS: Lithium Carbonate ER 450mg TAB PO SCH (09:40)
[2020-12-21] MEDS: PTO: Dorzolamide 2% OPTH (NF) 10 ML BTL RIGHT EYE SCH (09:40)
[2020-12-21] MEDS: Gemfibrozil 600 mg PO SCH (09:41)
[2020-12-21] MEDS: OLANzapine 5 mg TAB*ODT PO PRN (09:42)
== END 2020-12-21 13:00 | disposition home or self-care (01) | DRG 885 ==
LOC: ED 19:02 → BSU 23:50
PROVIDERS: ADMIT Psychiatry & Neurology Psychiatry; ATTEND Psychiatry & Neurology Psychiatry

== ENCOUNTER 2021-01-23 18:22 | Inpatient (IN) ==
[2021-01-23 18:58] LABS: ABS Eosinophils 0.4 10^3/ul (0-0.6); ABS Lymphocytes 2.9 10^3/ul (1.0-4.8); ABS Monocytes 0.9 10^3/ul (0-0.8); ABS Neutrophils 9.2 10^3/ul (1.5-7.7); Eosinophil % 2.9 %; Hematocrit 42 % (42-52); Hemoglobin 14.1 g/dL (14.0-18.0); Lymphocyte % 21.8 %; Mean Corpuscular HGB Conc 34 g/dL (31-36); Mean Corpuscular Hemoglobin 29 pg (27-31); Mean Corpuscular Volume 87 fL (80-94); Mean Platelet Volume 7.6 fL (7.4-10.4); Platelet Count 352 10^3/uL (150-450); Red Cell Distribution Width 14 % (10-15); White Blood Count 13.4 10^3/uL (3.5-10.8)
[2021-01-23 19:00] LABS: Urine Appearance Clear; Urine Bilirubin Negative (Negative); Urine Blood 1+ (Negative); Urine Color Straw; Urine Glucose Negative (Negative); Urine Ketones Negative (Negative); Urine Nitrite Negative (Negative); Urine Protein Negative (Negative); Urine Specific Gravity 1.006 (1.002-1.030); Urine Urobilinogen Negative (Negative)
[2021-01-23 19:01] LABS: Urine Bacteria Absent (Absent); Urine Red Blood Cell Trace(0-2/hpf) (Absent); Urine White Blood Cell Absent (Absent)
[2021-01-23 19:13] LABS: ALT 9 U/L (7-52); AST 13 U/L (13-39); Albumin 4.6 g/dL (3.2-5.2); Albumin/Globulin Ratio 1.9 (1-3); Alkaline Phosphatase 90 U/L (35-149); Anion Gap 10 mmol/L (2-11); Blood Urea Nitrogen 7 mg/dL (6-24); CO2 Carbon Dioxide 18 mmol/L (22-32); Calcium 9.9 mg/dL (8.6-10.3); Chloride 111 mmol/L (101-111); EGFR African American 153.8 (>60); EGFR Non-African American 127.1 (>60); Globulin 2.4 g/dL (2-4); Glucose 111 mg/dL (70-100); Potassium 4.3 mmol/L (3.5-5.0); Sodium 139 mmol/L (135-145)
[2021-01-23 19:14] LABS: Urine Benzodiazepine Screen None Detected (None Detect); Urine Cannabinoids Screen None Detected (None Detect); Urine Opiates Screen None Detected (None Detect)
[2021-01-23 20:00] LABS: Acetaminophen < 15 mcg/mL; Alcohol, S 92 mg/dL (<10); Salicylate < 2.50 mg/dL (<30)
[2021-01-23] MEDS ORDERED: Al Hydrox/Mg Hydrox/Simet LIQ 30 ML UDC PO PRN (21:39)
[2021-01-23] MEDS ORDERED: Nicotine GUM 2MG FRUIT FLAVOR PO PRN (22:00)
[2021-01-23] MEDS ORDERED: LORazepam PO 0-6 for WAM protocol PO SCH (23:00)
[2021-01-23] MEDS ORDERED: OLANzapine 5 mg TAB*ODT PO PRN (23:53)
[2021-01-24] MEDS: Gemfibrozil 600 mg PO SCH ×3 (01:59→20:39)
[2021-01-24] MEDS: Latanoprost 0.005% 2.5 ml BTL BOTH EYES SCH ×2 (02:00→20:40)
[2021-01-24] MEDS: Lithium Carbonate ER 450mg TAB PO SCH ×3 (02:00→20:39)
[2021-01-24] MEDS: CMCS: Dorzolamide 2% OPTH (NF) 10 ML BTL RIGHT EYE SCH ×3 (02:00→20:40)
[2021-01-24] MEDS: Vitamin THERAPEUTIC TAB PO SCH (09:35)
[2021-01-24] MEDS: Nicotine PATCH 21 MG/24 HR PATCH TRANSDERM SCH (09:35)
[2021-01-25 08:08] VITALS: BP 107/74
[2021-01-25 08:51] LABS: HDL Cholesterol 45.5 mg/dL
[2021-01-25] MEDS: Gemfibrozil 600 mg PO SCH (09:43)
[2021-01-25] MEDS: Nicotine PATCH 21 MG/24 HR PATCH TRANSDERM SCH (09:43)
[2021-01-25] MEDS: Lithium Carbonate ER 450mg TAB PO SCH (09:43)
[2021-01-25] MEDS: Vitamin THERAPEUTIC TAB PO SCH (09:43)
[2021-01-25] MEDS: CMCS: Dorzolamide 2% OPTH (NF) 10 ML BTL RIGHT EYE SCH (09:47)
== END 2021-01-25 12:50 | disposition home or self-care (01) | DRG 885 ==
LOC: ED 18:22 → BSU 22:17
PROVIDERS: ADMIT Psychiatry & Neurology Psychiatry; ATTEND Psychiatry & Neurology Psychiatry

== ENCOUNTER 2021-03-14 13:46 | Inpatient (IN) ==
[2021-03-14 14:20] LABS: Urine Appearance Clear; Urine Bilirubin Negative (Negative); Urine Blood Negative (Negative); Urine Color Straw; Urine Glucose Negative (Negative); Urine Ketones Negative (Negative); Urine Nitrite Negative (Negative); Urine Protein Negative (Negative); Urine Specific Gravity 1.002 (1.002-1.030); Urine Urobilinogen Negative (Negative)
[2021-03-14 14:52] LABS: Urine Benzodiazepine Screen None Detected (None Detect); Urine Cannabinoids Screen None Detected (None Detect); Urine Opiates Screen None Detected (None Detect)
[2021-03-14 16:08] LABS: ABS Basophils 0.1 10^3/ul (0-0.2); ABS Eosinophils 0.1 10^3/ul (0-0.6); ABS Lymphocytes 2.4 10^3/ul (1.0-4.8); ABS Monocytes 0.7 10^3/ul (0-0.8); ABS Neutrophils 8.8 10^3/ul (1.5-7.7); Eosinophil % 1.1 %; Hematocrit 45 % (42-52); Lymphocyte % 19.6 %; Mean Corpuscular HGB Conc 33 g/dL (31-36); Mean Corpuscular Hemoglobin 29 pg (27-31); Mean Corpuscular Volume 86 fL (80-94); Mean Platelet Volume 7.6 fL (7.4-10.4); Platelet Count 349 10^3/uL (150-450); Red Blood Count 5.22 10^6 /uL (4.18-5.48); Red Cell Distribution Width 15 % (10-15); White Blood Count 12.2 10^3/uL (3.5-10.8)
[2021-03-14 16:24] LABS: ALT 15 U/L (7-52); AST 17 U/L (13-39); Albumin 4.8 g/dL (3.2-5.2); Albumin/Globulin Ratio 1.8 (1-3); Alkaline Phosphatase 100 U/L (35-149); Anion Gap 8 mmol/L (2-11); Blood Urea Nitrogen 10 mg/dL (6-24); CO2 Carbon Dioxide 24 mmol/L (22-32); Calcium 9.9 mg/dL (8.6-10.3); Chloride 105 mmol/L (101-111); EGFR African American 117.6 (>60); EGFR Non-African American 97.2 (>60); Globulin 2.7 g/dL (2-4); Glucose 133 mg/dL (70-100); Potassium 4.2 mmol/L (3.5-5.0); Sodium 137 mmol/L (135-145); Total Protein 7.5 g/dL (6.4-8.9)
[2021-03-14] MEDS ORDERED: Al Hydrox/Mg Hydrox/Simet LIQ 30 ML UDC PO ONE (17:14)
[2021-03-14 17:15] LABS: Alcohol, S < 13 mg/dL (<13); Salicylate < 2.50 mg/dL (<30)
[2021-03-14 17:27] LABS: TSH Ultra Thyroid Stim Horm 0.51 mcIU/mL (0.34-5.60)
[2021-03-14 17:28] LABS: Acetaminophen < 15 mcg/mL
[2021-03-14] MEDS ORDERED: Al Hydrox/Mg Hydrox/Simet LIQ 30 ML UDC PO PRN (20:56)
[2021-03-14] MEDS ORDERED: Nicotine GUM 2MG FRUIT FLAVOR PO PRN (21:00)
[2021-03-14] MEDS ORDERED: Latanoprost 0.005% 2.5 ml BTL BOTH EYES SCH (21:00)
[2021-03-14] MEDS: CMCS: Dorzolamide/Timolol OPTH (NF) 10 ML BOT BOTH EYES SCH (21:48)
[2021-03-14] MEDS: Gemfibrozil 600 mg PO SCH (21:48)
[2021-03-14] MEDS: Lithium Carbonate ER 450mg TAB PO SCH (21:48)
[2021-03-15 08:45] LABS: HDL Cholesterol 44.5 mg/dL
[2021-03-15] MEDS ORDERED: Nicotine PATCH 21 MG/24 HR PATCH TRANSDERM SCH (09:00)
[2021-03-15] MEDS ORDERED: Vitamin THERAPEUTIC TAB PO SCH (09:00)
[2021-03-15] MEDS: Gemfibrozil 600 mg PO SCH (09:37)
[2021-03-15] MEDS: Lithium Carbonate ER 450mg TAB PO SCH (09:37)
[2021-03-15] MEDS: CMCS: Dorzolamide/Timolol OPTH (NF) 10 ML BOT BOTH EYES SCH (09:38)
[2021-03-15 09:56] VITALS: BP 97/68
== END 2021-03-15 14:30 | disposition home or self-care (01) | DRG 897 ==
LOC: ED 13:46 → BSU 20:27
PROVIDERS: ADMIT Psychiatry & Neurology Psychiatry; ATTEND Psychiatry & Neurology Psychiatry

== ENCOUNTER 2021-07-07 18:30 | Inpatient (IN) ==
[2021-07-07 19:33] LABS: ABS Basophils 0.1 10^3/ul (0-0.2); ABS Eosinophils 0.4 10^3/ul (0-0.6); ABS Monocytes 0.8 10^3/ul (0-0.8); ABS Neutrophils 6.4 10^3/ul (1.5-7.7); Eosinophil % 3.4 %; Hematocrit 46 % (42-52); Lymphocyte % 27.9 %; Mean Corpuscular HGB Conc 35 g/dL (31-36); Mean Corpuscular Hemoglobin 31 pg (27-31); Mean Corpuscular Volume 87 fL (80-94); Mean Platelet Volume 7.6 fL (7.4-10.4); Platelet Count 315 10^3/uL (150-450); Red Blood Count 5.23 10^6 /uL (4.18-5.48); Red Cell Distribution Width 14 % (10-15); White Blood Count 10.7 10^3/uL (3.5-10.8)
[2021-07-07 19:33] LABS: Urine Appearance Clear; Urine Bilirubin Negative (Negative); Urine Blood Negative (Negative); Urine Color Colorless; Urine Glucose Negative (Negative); Urine Ketones Negative (Negative); Urine Nitrite Negative (Negative); Urine Protein Negative (Negative); Urine Specific Gravity 1.002 (1.002-1.030); Urine Urobilinogen Negative (Negative)
[2021-07-07 19:49] LABS: ALT 15 U/L (7-52); AST 15 U/L (13-39); Albumin/Globulin Ratio 1.9 (1-3); Alkaline Phosphatase 84 U/L (35-149); Anion Gap 9 mmol/L (2-11); Blood Urea Nitrogen 9 mg/dL (6-24); CO2 Carbon Dioxide 22 mmol/L (22-32); Calcium 9.9 mg/dL (8.6-10.3); Chloride 106 mmol/L (101-111); Globulin 2.6 g/dL (2-4); Glucose 104 mg/dL (70-100); Potassium 4.1 mmol/L (3.5-5.0); Sodium 137 mmol/L (135-145); Total Protein 7.6 g/dL (6.4-8.9); eGFR CKD-EPI 113.3 (>60)
[2021-07-07 19:52] LABS: Urine Benzodiazepine Screen None Detected (None Detect); Urine Cannabinoids Screen None Detected (None Detect); Urine Opiates Screen None Detected (None Detect)
[2021-07-07 20:39] LABS: Acetaminophen < 15 mcg/mL; Alcohol, S 167 mg/dL (<13); Salicylate < 2.50 mg/dL (<30)
[2021-07-08 01:22] LABS: Lithium 0.58 mmol/L (0.6-1.2)
[2021-07-08] MEDS ORDERED: Al Hydrox/Mg Hydrox/Simet LIQ 30 ML UDC PO PRN (03:43)
[2021-07-08] MEDS ORDERED: Nicotine GUM 2MG FRUIT FLAVOR PO PRN (04:00)
[2021-07-08] MEDS ORDERED: LORazepam PO 0-6 for WAM protocol PO SCH (04:00)
[2021-07-08] MEDS: Nicotine PATCH 14 MG/24 HR PATCH TRANSDERM SCH (10:45)
[2021-07-08] MEDS: Vitamin THERAPEUTIC TAB PO SCH (10:45)
[2021-07-08] MEDS: Lithium Carbonate ER 450mg TAB PO SCH ×2 (10:45→21:54)
[2021-07-08] MEDS ORDERED: CMC:Alfuzosin ER 10 mg TAB.ER (NF) 10 MG TAB.ER PO SCH (21:00)
[2021-07-08] MEDS ORDERED: Latanoprost 0.005% 2.5 ml BTL BOTH EYES SCH (21:00)
[2021-07-08] MEDS: Gemfibrozil 600 mg PO SCH (21:51)
[2021-07-08] MEDS: CMC:Dorzolamide/Timolol OPTH (NF) 10 ML BOT BOTH EYES SCH (21:52)
[2021-07-09 07:36] LABS: HDL Cholesterol 45.3 mg/dL
[2021-07-09 07:38] VITALS: BP 114/75
[2021-07-09] MEDS: Lithium Carbonate ER 450mg TAB PO SCH (09:02)
[2021-07-09] MEDS: Gemfibrozil 600 mg PO SCH (09:02)
[2021-07-09] MEDS: Vitamin THERAPEUTIC TAB PO SCH (09:02)
[2021-07-09] MEDS: CMC:Dorzolamide/Timolol OPTH (NF) 10 ML BOT BOTH EYES SCH (09:03)
[2021-07-09] MEDS: Nicotine PATCH 14 MG/24 HR PATCH TRANSDERM SCH (09:03)
== END 2021-07-09 13:17 | disposition home or self-care (01) | DRG 885 ==
LOC: ED 18:30 → BSU 07-08 01:47
PROVIDERS: ADMIT Psychiatry & Neurology Psychiatry; ATTEND Psychiatry & Neurology Psychiatry

== ENCOUNTER 2021-11-08 23:20 | Inpatient (IN) ==
[2021-11-08 23:51] LABS: Urine Appearance Cloudy; Urine Bilirubin Negative (Negative); Urine Blood Negative (Negative); Urine Color Yellow; Urine Glucose Negative (Negative); Urine Ketones Negative (Negative); Urine Nitrite Negative (Negative); Urine Protein Negative (Negative); Urine Specific Gravity 1.018 (1.002-1.030); Urine Urobilinogen Negative (Negative)
[2021-11-08 23:54] LABS: Hematocrit 42 % (42-52); Hemoglobin 14.7 g/dL (14.0-18.0); Mean Corpuscular HGB Conc 35 g/dL (31-36); Mean Corpuscular Hemoglobin 30 pg (27-31); Mean Corpuscular Volume 86 fL (80-94); Mean Platelet Volume 7.8 fL (7.4-10.4); Platelet Count 306 10^3/uL (150-450); Red Blood Count 4.93 10^6 /uL (4.18-5.48); Red Cell Distribution Width 14 % (10-15); White Blood Count 8.2 10^3/uL (3.5-10.8)
[2021-11-08 23:57] LABS: ABS Basophils 0.1 10^3/ul (0-0.2); ABS Eosinophils 0.3 10^3/ul (0-0.6); ABS Lymphocytes 2.6 10^3/ul (1.0-4.8); ABS Monocytes 0.6 10^3/ul (0-0.8); ABS Neutrophils 4.7 10^3/ul (1.5-7.7); Eosinophil % 3.2 %; Lymphocyte % 31.5 %
[2021-11-09 00:10] LABS: Urine Benzodiazepine Screen None Detected (None Detect); Urine Cannabinoids Screen None Detected (None Detect); Urine Opiates Screen None Detected (None Detect)
[2021-11-09 00:29] LABS: RBC Morphology Normal (Normal)
[2021-11-09 00:33] LABS: ALT 10 U/L (7-52); AST 13 U/L (13-39); Acetaminophen < 15 mcg/mL; Albumin 4.5 g/dL (3.2-5.2); Albumin/Globulin Ratio 2.1 (1-3); Alcohol, S < 13 mg/dL (<13); Alkaline Phosphatase 75 U/L (35-149); Anion Gap 11 mmol/L (2-11); Blood Urea Nitrogen 9 mg/dL (6-24); CO2 Carbon Dioxide 21 mmol/L (22-32); Calcium 9.7 mg/dL (8.6-10.3); Chloride 103 mmol/L (101-111); Globulin 2.1 g/dL (2-4); Glucose 225 mg/dL (70-100); Potassium 3.5 mmol/L (3.5-5.0); Salicylate < 2.50 mg/dL (<30); Sodium 135 mmol/L (135-145); Total Protein 6.6 g/dL (6.4-8.9); eGFR CKD-EPI 102.1 (>60)
[2021-11-09 00:47] LABS: TSH Ultra Thyroid Stim Horm 2.42 mcIU/mL (0.34-5.60)
[2021-11-09] MEDS ORDERED: Al Hydrox/Mg Hydrox/Simet LIQ 30 ML UDC PO PRN (09:43)
[2021-11-09] MEDS ORDERED: CMCS:Dorzolamide/Timolol OPTH (NF) 10 ML BOT BOTH EYES SCH (14:00)
[2021-11-09] MEDS: Lithium Carbonate ER 450mg TAB PO SCH (20:54)
[2021-11-09] MEDS: Gemfibrozil 600 mg PO SCH (20:55)
[2021-11-09] MEDS: CMCS:Alfuzosin ER 10 mg TAB.ER (NF) 10 MG TAB.ER PO SCH (20:55)
[2021-11-09] MEDS: CMCS:Dorzolamide/Timolol OPTH (NF) 10 ML BOT BOTH EYES SCH (20:55)
[2021-11-09] MEDS ORDERED: Latanoprost 0.005% 2.5 ml BTL BOTH EYES SCH (21:00)
[2021-11-10 08:24] LABS: HDL Cholesterol 38.9 mg/dL
[2021-11-10] MEDS: Vitamin THERAPEUTIC TAB PO SCH (09:10)
[2021-11-10] MEDS: Lithium Carbonate ER 450mg TAB PO SCH ×2 (09:10→21:15)
[2021-11-10] MEDS: CMCS:Dorzolamide/Timolol OPTH (NF) 10 ML BOT BOTH EYES SCH ×2 (09:10→21:16)
[2021-11-10] MEDS: Gemfibrozil 600 mg PO SCH ×2 (09:12→21:15)
[2021-11-10] MEDS: Latanoprost 0.005% 2.5 ml BTL BOTH EYES SCH (17:35)
[2021-11-10] MEDS: CMCS:Alfuzosin ER 10 mg TAB.ER (NF) 10 MG TAB.ER PO SCH (21:15)
[2021-11-11] MEDS: Lithium Carbonate ER 450mg TAB PO SCH ×2 (09:18→21:01)
[2021-11-11] MEDS: Vitamin THERAPEUTIC TAB PO SCH (09:18)
[2021-11-11] MEDS: Gemfibrozil 600 mg PO SCH ×2 (09:20→21:01)
[2021-11-11] MEDS: CMCS:Dorzolamide/Timolol OPTH (NF) 10 ML BOT BOTH EYES SCH ×2 (09:20→21:01)
[2021-11-11] MEDS: Latanoprost 0.005% 2.5 ml BTL BOTH EYES SCH (18:04)
[2021-11-11] MEDS: CMCS:Alfuzosin ER 10 mg TAB.ER (NF) 10 MG TAB.ER PO SCH (21:01)
[2021-11-12 09:27] VITALS: BP 106/68
[2021-11-12] MEDS: CMCS:Dorzolamide/Timolol OPTH (NF) 10 ML BOT BOTH EYES SCH (09:36)
[2021-11-12] MEDS: Lithium Carbonate ER 450mg TAB PO SCH (09:37)
[2021-11-12] MEDS: Vitamin THERAPEUTIC TAB PO SCH (09:37)
[2021-11-12] MEDS: Gemfibrozil 600 mg PO SCH (09:37)
== END 2021-11-12 13:37 | disposition home or self-care (01) | DRG 885 ==
LOC: ED 23:20 → EDHOLD 11-09 09:43 → BSU 11-09 11:51
PROVIDERS: ADMIT Student in an Organized Health Care Education/Training Program; ATTEND Psychiatry & Neurology Psychiatry

== ENCOUNTER 2021-12-24 11:00 | Inpatient (IN) ==
[2021-12-24 12:04] LABS: Urine Appearance Clear; Urine Bilirubin Negative (Negative); Urine Blood Negative (Negative); Urine Color Straw; Urine Glucose Negative (Negative); Urine Ketones Negative (Negative); Urine Nitrite Negative (Negative); Urine Protein Negative (Negative); Urine Specific Gravity 1.005 (1.002-1.030); Urine Urobilinogen Negative (Negative)
[2021-12-24 12:22] LABS: ABS Basophils 0.1 10^3/ul (0-0.2); ABS Eosinophils 0.1 10^3/ul (0-0.6); ABS Lymphocytes 1.7 10^3/ul (1.0-4.8); ABS Neutrophils 6.3 10^3/ul (1.5-7.7); Eosinophil % 0.7 %; Hematocrit 43 % (42-52); Hemoglobin 14.5 g/dL (14.0-18.0); Lymphocyte % 18.6 %; Mean Corpuscular HGB Conc 34 g/dL (31-36); Mean Corpuscular Hemoglobin 30 pg (27-31); Mean Corpuscular Volume 89 fL (80-94); Mean Platelet Volume 7.3 fL (7.4-10.4); Platelet Count 391 10^3/uL (150-450); Red Blood Count 4.84 10^6 /uL (4.18-5.48); Red Cell Distribution Width 15 % (10-15); White Blood Count 9.1 10^3/uL (3.5-10.8)
[2021-12-24 12:29] LABS: Urine Benzodiazepine Screen None Detected (None Detect); Urine Cannabinoids Screen None Detected (None Detect); Urine Opiates Screen None Detected (None Detect)
[2021-12-24 12:59] LABS: ALT 20 U/L (7-52); AST 16 U/L (13-39); Acetaminophen < 15 mcg/mL; Albumin 4.9 g/dL (3.2-5.2); Albumin/Globulin Ratio 2.2 (1-3); Alcohol, S < 13 mg/dL (<13); Alkaline Phosphatase 85 U/L (35-149); Anion Gap 6 mmol/L (2-11); Blood Urea Nitrogen 10 mg/dL (6-24); CO2 Carbon Dioxide 25 mmol/L (22-32); Calcium 10.3 mg/dL (8.6-10.3); Chloride 103 mmol/L (101-111); Globulin 2.2 g/dL (2-4); Glucose 110 mg/dL (70-100); Potassium 4.7 mmol/L (3.5-5.0); Salicylate < 2.50 mg/dL (<30); Sodium 134 mmol/L (135-145); Total Protein 7.1 g/dL (6.4-8.9); eGFR CKD-EPI 103.6 (>60)
[2021-12-24] MEDS ORDERED: Al Hydrox/Mg Hydrox/Simet LIQ 30 ML UDC PO PRN (13:54)
[2021-12-24] MEDS ORDERED: Nicotine Lozenge mini 4 MG LOZNG.MINI MT PRN ×2 (13:54→17:50)
[2021-12-24] MEDS ORDERED: Nicotine GUM 4MG FRUIT FLAVOR PO PRN (13:54)
[2021-12-24] MEDS ORDERED: Dorzolamide/Timolol OPTH (NF) 10 ML BOT BOTH EYES SCH (14:00)
[2021-12-24] MEDS: Gemfibrozil 600 mg PO SCH (20:22)
[2021-12-24] MEDS: Lithium Carbonate ER 450mg TAB PO SCH (20:22)
[2021-12-24] MEDS: Latanoprost 0.005% 2.5 ml BTL BOTH EYES SCH (20:24)
[2021-12-24] MEDS: CMC:Dorzolamide/Timolol OPTH (NF) 10 ML BOT BOTH EYES SCH (20:25)
[2021-12-24] MEDS: CMC:Alfuzosin ER 10 mg TAB.ER (NF) 10 MG TAB.ER PO SCH (20:26)
[2021-12-24] MEDS ORDERED: Lithium Carbonate ER 450mg TAB PO SCH (21:00)
[2021-12-24] MEDS ORDERED: Alfuzosin ER 10 mg TAB.ER (NF) 10 MG TAB.ER PO SCH (21:00)
[2021-12-24] MEDS ORDERED: Gemfibrozil 600 mg PO SCH (21:00)
[2021-12-25] MEDS: Lithium Carbonate ER 450mg TAB PO SCH ×2 (08:19→20:47)
[2021-12-25] MEDS: CMC:Dorzolamide/Timolol OPTH (NF) 10 ML BOT BOTH EYES SCH ×2 (08:19→20:47)
[2021-12-25] MEDS: Gemfibrozil 600 mg PO SCH ×2 (08:19→20:46)
[2021-12-25] MEDS: Lurasidone 120 mg TAB PO SCH (17:24)
[2021-12-25] MEDS: Latanoprost 0.005% 2.5 ml BTL BOTH EYES SCH (20:46)
[2021-12-25] MEDS: CMC:Alfuzosin ER 10 mg TAB.ER (NF) 10 MG TAB.ER PO SCH (20:46)
[2021-12-26] MEDS: Lithium Carbonate ER 450mg TAB PO SCH ×2 (07:36→19:43)
[2021-12-26] MEDS: CMC:Dorzolamide/Timolol OPTH (NF) 10 ML BOT BOTH EYES SCH ×2 (07:37→19:43)
[2021-12-26] MEDS: Gemfibrozil 600 mg PO SCH ×2 (07:37→19:43)
[2021-12-26] MEDS: Lurasidone 120 mg TAB PO SCH (17:54)
[2021-12-26] MEDS: CMC:Alfuzosin ER 10 mg TAB.ER (NF) 10 MG TAB.ER PO SCH (19:43)
[2021-12-26] MEDS: Latanoprost 0.005% 2.5 ml BTL BOTH EYES SCH (19:43)
[2021-12-27] MEDS: Gemfibrozil 600 mg PO SCH ×2 (09:10→21:38)
[2021-12-27] MEDS: Lithium Carbonate ER 450mg TAB PO SCH ×2 (09:10→21:38)
[2021-12-27] MEDS: CMC:Dorzolamide/Timolol OPTH (NF) 10 ML BOT BOTH EYES SCH ×2 (09:11→21:39)
[2021-12-27] MEDS: Lurasidone 120 mg TAB PO SCH (17:03)
[2021-12-27] MEDS: Latanoprost 0.005% 2.5 ml BTL BOTH EYES SCH (21:39)
[2021-12-27] MEDS: CMC:Alfuzosin ER 10 mg TAB.ER (NF) 10 MG TAB.ER PO SCH (21:39)
[2021-12-28] MEDS: Lithium Carbonate ER 450mg TAB PO SCH ×2 (09:08→20:50)
[2021-12-28] MEDS: CMC:Dorzolamide/Timolol OPTH (NF) 10 ML BOT BOTH EYES SCH ×2 (09:08→20:52)
[2021-12-28] MEDS: Gemfibrozil 600 mg PO SCH ×2 (09:08→20:50)
[2021-12-28] MEDS: Lurasidone 120 mg TAB PO SCH (17:45)
[2021-12-28] MEDS: CMC:Alfuzosin ER 10 mg TAB.ER (NF) 10 MG TAB.ER PO SCH (20:49)
[2021-12-28] MEDS: Latanoprost 0.005% 2.5 ml BTL BOTH EYES SCH (20:51)
[2021-12-29] MEDS: CMC:Dorzolamide/Timolol OPTH (NF) 10 ML BOT BOTH EYES SCH ×2 (08:51→20:39)
[2021-12-29] MEDS: Lithium Carbonate ER 450mg TAB PO SCH ×2 (08:51→20:38)
[2021-12-29] MEDS: Gemfibrozil 600 mg PO SCH ×2 (08:51→20:39)
[2021-12-29] MEDS: Lurasidone 120 mg TAB PO SCH (17:55)
[2021-12-29] MEDS: Latanoprost 0.005% 2.5 ml BTL BOTH EYES SCH (20:39)
[2021-12-29] MEDS: CMC:Alfuzosin ER 10 mg TAB.ER (NF) 10 MG TAB.ER PO SCH (20:40)
[2021-12-30] MEDS: Lithium Carbonate ER 450mg TAB PO SCH ×2 (07:51→21:29)
[2021-12-30] MEDS: Gemfibrozil 600 mg PO SCH ×2 (07:52→21:29)
[2021-12-30] MEDS: CMC:Dorzolamide/Timolol OPTH (NF) 10 ML BOT BOTH EYES SCH ×2 (07:53→21:32)
[2021-12-30] MEDS: Lurasidone 120 mg TAB PO SCH (18:02)
[2021-12-30] MEDS: CMC:Alfuzosin ER 10 mg TAB.ER (NF) 10 MG TAB.ER PO SCH (21:29)
[2021-12-30] MEDS: Latanoprost 0.005% 2.5 ml BTL BOTH EYES SCH (21:31)
[2021-12-31] MEDS: Gemfibrozil 600 mg PO SCH ×2 (09:10→21:23)
[2021-12-31] MEDS: Lithium Carbonate ER 450mg TAB PO SCH ×2 (09:11→21:23)
[2021-12-31] MEDS: CMC:Dorzolamide/Timolol OPTH (NF) 10 ML BOT BOTH EYES SCH ×2 (09:12→21:26)
[2021-12-31] MEDS: Lurasidone 120 mg TAB PO SCH (17:26)
[2021-12-31] MEDS: CMC:Alfuzosin ER 10 mg TAB.ER (NF) 10 MG TAB.ER PO SCH (21:22)
[2021-12-31] MEDS: Latanoprost 0.005% 2.5 ml BTL BOTH EYES SCH (21:24)
[2022-01-01] MEDS: Lithium Carbonate ER 450mg TAB PO SCH ×2 (09:44→21:53)
[2022-01-01] MEDS: CMC:Dorzolamide/Timolol OPTH (NF) 10 ML BOT BOTH EYES SCH ×2 (09:45→21:57)
[2022-01-01] MEDS: Gemfibrozil 600 mg PO SCH ×2 (09:45→21:54)
[2022-01-01] MEDS: Lurasidone 120 mg TAB PO SCH (17:07)
[2022-01-01] MEDS: CMC:Alfuzosin ER 10 mg TAB.ER (NF) 10 MG TAB.ER PO SCH (21:54)
[2022-01-01] MEDS: Latanoprost 0.005% 2.5 ml BTL BOTH EYES SCH (21:57)
[2022-01-02] MEDS: CMC:Dorzolamide/Timolol OPTH (NF) 10 ML BOT BOTH EYES SCH ×2 (08:42→21:59)
[2022-01-02] MEDS: Gemfibrozil 600 mg PO SCH ×2 (08:42→21:59)
[2022-01-02] MEDS: Lithium Carbonate ER 450mg TAB PO SCH ×2 (08:42→21:59)
[2022-01-02] MEDS: Lurasidone 120 mg TAB PO SCH (18:32)
[2022-01-02] MEDS: Latanoprost 0.005% 2.5 ml BTL BOTH EYES SCH (21:58)
[2022-01-02] MEDS: CMC:Alfuzosin ER 10 mg TAB.ER (NF) 10 MG TAB.ER PO SCH (21:58)
[2022-01-03] MEDS: Lithium Carbonate ER 450mg TAB PO SCH ×2 (08:37→20:48)
[2022-01-03] MEDS: CMC:Dorzolamide/Timolol OPTH (NF) 10 ML BOT BOTH EYES SCH ×2 (08:38→20:48)
[2022-01-03] MEDS: Gemfibrozil 600 mg PO SCH ×2 (08:38→20:48)
[2022-01-03] MEDS: Lurasidone 120 mg TAB PO SCH (16:56)
[2022-01-03] MEDS: Latanoprost 0.005% 2.5 ml BTL BOTH EYES SCH (20:47)
[2022-01-03] MEDS: CMC:Alfuzosin ER 10 mg TAB.ER (NF) 10 MG TAB.ER PO SCH (20:47)
[2022-01-04] MEDS: CMC:Dorzolamide/Timolol OPTH (NF) 10 ML BOT BOTH EYES SCH ×2 (08:37→23:05)
[2022-01-04] MEDS: Lithium Carbonate ER 450mg TAB PO SCH ×2 (08:37→23:04)
[2022-01-04] MEDS: Gemfibrozil 600 mg PO SCH ×2 (08:37→23:04)
[2022-01-04] MEDS: Lurasidone 120 mg TAB PO SCH (17:02)
[2022-01-04] MEDS: CMC:Alfuzosin ER 10 mg TAB.ER (NF) 10 MG TAB.ER PO SCH (23:05)
[2022-01-04] MEDS: Latanoprost 0.005% 2.5 ml BTL BOTH EYES SCH (23:05)
[2022-01-05] MEDS: Gemfibrozil 600 mg PO SCH ×2 (07:48→21:36)
[2022-01-05] MEDS: Lithium Carbonate ER 450mg TAB PO SCH ×2 (07:48→21:36)
[2022-01-05] MEDS: CMC:Dorzolamide/Timolol OPTH (NF) 10 ML BOT BOTH EYES SCH ×2 (07:49→21:36)
[2022-01-05] MEDS: Lurasidone 120 mg TAB PO SCH (17:27)
[2022-01-05] MEDS: Latanoprost 0.005% 2.5 ml BTL BOTH EYES SCH (21:36)
[2022-01-05] MEDS: CMC:Alfuzosin ER 10 mg TAB.ER (NF) 10 MG TAB.ER PO SCH (21:36)
[2022-01-06] MEDS: Lithium Carbonate ER 450mg TAB PO SCH ×2 (07:38→20:42)
[2022-01-06] MEDS: Gemfibrozil 600 mg PO SCH ×2 (07:39→20:42)
[2022-01-06] MEDS: CMC:Dorzolamide/Timolol OPTH (NF) 10 ML BOT BOTH EYES SCH ×2 (07:39→20:43)
[2022-01-06] MEDS: Lurasidone 120 mg TAB PO SCH (17:45)
[2022-01-06] MEDS: CMC:Alfuzosin ER 10 mg TAB.ER (NF) 10 MG TAB.ER PO SCH (20:42)
[2022-01-06] MEDS: Latanoprost 0.005% 2.5 ml BTL BOTH EYES SCH (20:42)
[2022-01-07] MEDS: Gemfibrozil 600 mg PO SCH ×2 (07:32→20:31)
[2022-01-07] MEDS: Lithium Carbonate ER 450mg TAB PO SCH ×2 (07:32→20:31)
[2022-01-07] MEDS: CMC:Dorzolamide/Timolol OPTH (NF) 10 ML BOT BOTH EYES SCH ×2 (07:32→20:31)
[2022-01-07] MEDS: Lurasidone 120 mg TAB PO SCH (20:31)
[2022-01-07] MEDS: CMC:Alfuzosin ER 10 mg TAB.ER (NF) 10 MG TAB.ER PO SCH (20:31)
[2022-01-07] MEDS: Latanoprost 0.005% 2.5 ml BTL BOTH EYES SCH (20:31)
[2022-01-08] MEDS: Gemfibrozil 600 mg PO SCH ×2 (09:31→20:44)
[2022-01-08] MEDS: Lithium Carbonate ER 450mg TAB PO SCH ×2 (09:31→20:44)
[2022-01-08] MEDS: CMC:Dorzolamide/Timolol OPTH (NF) 10 ML BOT BOTH EYES SCH ×2 (09:35→20:45)
[2022-01-08] MEDS: Lurasidone 120 mg TAB PO SCH (18:18)
[2022-01-08] MEDS: CMC:Alfuzosin ER 10 mg TAB.ER (NF) 10 MG TAB.ER PO SCH (20:43)
[2022-01-08] MEDS: Latanoprost 0.005% 2.5 ml BTL BOTH EYES SCH (20:45)
[2022-01-09] MEDS: CMC:Dorzolamide/Timolol OPTH (NF) 10 ML BOT BOTH EYES SCH ×2 (09:05→21:15)
[2022-01-09] MEDS: Gemfibrozil 600 mg PO SCH ×2 (09:05→21:16)
[2022-01-09] MEDS: Lithium Carbonate ER 450mg TAB PO SCH ×2 (09:05→21:16)
[2022-01-09] MEDS: Lurasidone 120 mg TAB PO SCH (17:05)
[2022-01-09] MEDS: Latanoprost 0.005% 2.5 ml BTL BOTH EYES SCH (21:15)
[2022-01-09] MEDS: CMC:Alfuzosin ER 10 mg TAB.ER (NF) 10 MG TAB.ER PO SCH (21:16)
[2022-01-10] MEDS: Gemfibrozil 600 mg PO SCH ×2 (11:01→21:04)
[2022-01-10] MEDS: CMC:Dorzolamide/Timolol OPTH (NF) 10 ML BOT BOTH EYES SCH ×2 (11:02→21:07)
[2022-01-10] MEDS: Lithium Carbonate ER 450mg TAB PO SCH ×2 (11:02→21:04)
[2022-01-10] MEDS: Lurasidone 120 mg TAB PO SCH (17:44)
[2022-01-10] MEDS: CMC:Alfuzosin ER 10 mg TAB.ER (NF) 10 MG TAB.ER PO SCH (21:05)
[2022-01-10] MEDS: Latanoprost 0.005% 2.5 ml BTL BOTH EYES SCH (21:07)
[2022-01-11] MEDS: CMC:Dorzolamide/Timolol OPTH (NF) 10 ML BOT BOTH EYES SCH ×2 (12:02→23:01)
[2022-01-11] MEDS: Lithium Carbonate ER 450mg TAB PO SCH ×2 (12:04→23:00)
[2022-01-11] MEDS: Gemfibrozil 600 mg PO SCH ×2 (12:05→23:00)
[2022-01-11] MEDS: Lurasidone 120 mg TAB PO SCH (17:00)
[2022-01-11] MEDS: CMC:Alfuzosin ER 10 mg TAB.ER (NF) 10 MG TAB.ER PO SCH (23:00)
[2022-01-11] MEDS: Latanoprost 0.005% 2.5 ml BTL BOTH EYES SCH (23:01)
[2022-01-12] MEDS: Lithium Carbonate ER 450mg TAB PO SCH ×2 (07:36→21:12)
[2022-01-12] MEDS: Gemfibrozil 600 mg PO SCH ×2 (07:36→21:12)
[2022-01-12] MEDS: CMC:Dorzolamide/Timolol OPTH (NF) 10 ML BOT BOTH EYES SCH ×2 (07:37→21:12)
[2022-01-12] MEDS: Lurasidone 120 mg TAB PO SCH (17:25)
[2022-01-12] MEDS: Latanoprost 0.005% 2.5 ml BTL BOTH EYES SCH (21:11)
[2022-01-12] MEDS: CMC:Alfuzosin ER 10 mg TAB.ER (NF) 10 MG TAB.ER PO SCH (21:12)
[2022-01-13] MEDS: Gemfibrozil 600 mg PO SCH ×2 (09:15→21:41)
[2022-01-13] MEDS: Lithium Carbonate ER 450mg TAB PO SCH ×2 (09:16→21:41)
[2022-01-13] MEDS: CMC:Dorzolamide/Timolol OPTH (NF) 10 ML BOT BOTH EYES SCH ×2 (09:17→21:42)
[2022-01-13] MEDS: Lurasidone 120 mg TAB PO SCH (17:48)
[2022-01-13] MEDS: Latanoprost 0.005% 2.5 ml BTL BOTH EYES SCH (21:41)
[2022-01-13] MEDS: CMC:Alfuzosin ER 10 mg TAB.ER (NF) 10 MG TAB.ER PO SCH (21:41)
[2022-01-14] MEDS: CMC:Dorzolamide/Timolol OPTH (NF) 10 ML BOT BOTH EYES SCH ×2 (09:00→22:04)
[2022-01-14] MEDS: Lithium Carbonate ER 450mg TAB PO SCH ×2 (09:01→22:04)
[2022-01-14] MEDS: Gemfibrozil 600 mg PO SCH ×2 (09:02→22:04)
[2022-01-14] MEDS: Lurasidone 120 mg TAB PO SCH (17:18)
[2022-01-14] MEDS: Polyethylene Glycol 3350 17 GM PACKET PO SCH (17:19)
[2022-01-14] MEDS: CMC:Alfuzosin ER 10 mg TAB.ER (NF) 10 MG TAB.ER PO SCH (22:03)
[2022-01-14] MEDS: Latanoprost 0.005% 2.5 ml BTL BOTH EYES SCH (22:04)
[2022-01-15] MEDS: CMC:Dorzolamide/Timolol OPTH (NF) 10 ML BOT BOTH EYES SCH ×2 (08:38→21:33)
[2022-01-15] MEDS: Gemfibrozil 600 mg PO SCH ×2 (08:42→21:33)
[2022-01-15] MEDS: Lithium Carbonate ER 450mg TAB PO SCH ×2 (08:42→21:34)
[2022-01-15] MEDS: Polyethylene Glycol 3350 17 GM PACKET PO SCH (08:42)
[2022-01-15] MEDS: Lurasidone 120 mg TAB PO SCH (17:28)
[2022-01-15] MEDS: Latanoprost 0.005% 2.5 ml BTL BOTH EYES SCH (21:33)
[2022-01-15] MEDS: CMC:Alfuzosin ER 10 mg TAB.ER (NF) 10 MG TAB.ER PO SCH (21:33)
[2022-01-16] MEDS: Gemfibrozil 600 mg PO SCH ×2 (08:35→20:54)
[2022-01-16] MEDS: Lithium Carbonate ER 450mg TAB PO SCH ×2 (08:35→20:54)
[2022-01-16] MEDS: CMC:Dorzolamide/Timolol OPTH (NF) 10 ML BOT BOTH EYES SCH ×2 (08:36→20:58)
[2022-01-16] MEDS: Polyethylene Glycol 3350 17 GM PACKET PO SCH (08:37)
[2022-01-16] MEDS: Lurasidone 120 mg TAB PO SCH (17:52)
[2022-01-16] MEDS: CMC:Alfuzosin ER 10 mg TAB.ER (NF) 10 MG TAB.ER PO SCH (20:54)
[2022-01-16] MEDS: Latanoprost 0.005% 2.5 ml BTL BOTH EYES SCH (20:58)
[2022-01-17] MEDS: Lithium Carbonate ER 450mg TAB PO SCH ×2 (09:01→21:27)
[2022-01-17] MEDS: Gemfibrozil 600 mg PO SCH ×2 (09:01→21:27)
[2022-01-17] MEDS: CMC:Dorzolamide/Timolol OPTH (NF) 10 ML BOT BOTH EYES SCH ×2 (09:02→21:30)
[2022-01-17] MEDS: Polyethylene Glycol 3350 17 GM PACKET PO SCH (09:02)
[2022-01-17] MEDS: Lurasidone 120 mg TAB PO SCH (19:03)
[2022-01-17] MEDS: CMC:Alfuzosin ER 10 mg TAB.ER (NF) 10 MG TAB.ER PO SCH (21:29)
[2022-01-17] MEDS: Latanoprost 0.005% 2.5 ml BTL BOTH EYES SCH (21:30)
[2022-01-18] MEDS: Lithium Carbonate ER 450mg TAB PO SCH ×2 (09:17→21:38)
[2022-01-18] MEDS: CMC:Dorzolamide/Timolol OPTH (NF) 10 ML BOT BOTH EYES SCH ×2 (09:18→21:44)
[2022-01-18] MEDS: Polyethylene Glycol 3350 17 GM PACKET PO SCH (09:19)
[2022-01-18] MEDS: Gemfibrozil 600 mg PO SCH ×2 (09:19→21:38)
[2022-01-18] MEDS: Lurasidone 120 mg TAB PO SCH (18:41)
[2022-01-18] MEDS: CMC:Alfuzosin ER 10 mg TAB.ER (NF) 10 MG TAB.ER PO SCH (21:36)
[2022-01-18] MEDS: Latanoprost 0.005% 2.5 ml BTL BOTH EYES SCH (21:44)
[2022-01-19] MEDS: CMC:Dorzolamide/Timolol OPTH (NF) 10 ML BOT BOTH EYES SCH ×2 (09:05→21:51)
[2022-01-19] MEDS: Gemfibrozil 600 mg PO SCH ×2 (09:05→21:41)
[2022-01-19] MEDS: Lithium Carbonate ER 450mg TAB PO SCH ×2 (09:05→21:41)
[2022-01-19] MEDS: Polyethylene Glycol 3350 17 GM PACKET PO SCH (09:06)
[2022-01-19] MEDS: Lurasidone 120 mg TAB PO SCH (17:22)
[2022-01-19] MEDS: CMC:Alfuzosin ER 10 mg TAB.ER (NF) 10 MG TAB.ER PO SCH (21:42)
[2022-01-19] MEDS: Latanoprost 0.005% 2.5 ml BTL BOTH EYES SCH (21:48)
[2022-01-20] MEDS: Lithium Carbonate ER 450mg TAB PO SCH ×2 (08:54→20:56)
[2022-01-20] MEDS: Gemfibrozil 600 mg PO SCH ×2 (08:55→20:57)
[2022-01-20] MEDS: CMC:Dorzolamide/Timolol OPTH (NF) 10 ML BOT BOTH EYES SCH ×2 (08:57→20:57)
[2022-01-20] MEDS: Polyethylene Glycol 3350 17 GM PACKET PO SCH (09:02)
[2022-01-20] MEDS: Lurasidone 120 mg TAB PO SCH (18:15)
[2022-01-20] MEDS: CMC:Alfuzosin ER 10 mg TAB.ER (NF) 10 MG TAB.ER PO SCH (20:58)
[2022-01-20] MEDS: Latanoprost 0.005% 2.5 ml BTL BOTH EYES SCH (20:59)
[2022-01-21] MEDS: CMC:Dorzolamide/Timolol OPTH (NF) 10 ML BOT BOTH EYES SCH ×3 (09:26→22:21)
[2022-01-21] MEDS: Lithium Carbonate ER 450mg TAB PO SCH ×2 (09:27→21:52)
[2022-01-21] MEDS: Gemfibrozil 600 mg PO SCH ×2 (09:29→21:52)
[2022-01-21] MEDS: Polyethylene Glycol 3350 17 GM PACKET PO SCH (09:30)
[2022-01-21] MEDS: Lurasidone 120 mg TAB PO SCH (17:39)
[2022-01-21] MEDS: CMC:Alfuzosin ER 10 mg TAB.ER (NF) 10 MG TAB.ER PO SCH (21:53)
[2022-01-21] MEDS: Latanoprost 0.005% 2.5 ml BTL BOTH EYES SCH ×2 (21:54→22:21)
[2022-01-22] MEDS: CMC:Dorzolamide/Timolol OPTH (NF) 10 ML BOT BOTH EYES SCH ×2 (08:52→22:55)
[2022-01-22] MEDS: Gemfibrozil 600 mg PO SCH ×2 (08:53→22:55)
[2022-01-22] MEDS: Lithium Carbonate ER 450mg TAB PO SCH ×2 (08:53→22:55)
[2022-01-22] MEDS: Polyethylene Glycol 3350 17 GM PACKET PO SCH (08:56)
[2022-01-22] MEDS ORDERED: Polyethylene Glycol 3350 17 GM PACKET PO PRN (10:05)
[2022-01-22] MEDS: Lurasidone 120 mg TAB PO SCH (17:03)
[2022-01-22] MEDS: Latanoprost 0.005% 2.5 ml BTL BOTH EYES SCH (22:55)
[2022-01-22] MEDS: CMC:Alfuzosin ER 10 mg TAB.ER (NF) 10 MG TAB.ER PO SCH (22:55)
[2022-01-23] MEDS: CMC:Dorzolamide/Timolol OPTH (NF) 10 ML BOT BOTH EYES SCH ×2 (09:18→22:15)
[2022-01-23] MEDS: Gemfibrozil 600 mg PO SCH ×2 (09:20→22:15)
[2022-01-23] MEDS: Lithium Carbonate ER 450mg TAB PO SCH ×2 (09:20→22:16)
[2022-01-23] MEDS: CMC:Alfuzosin ER 10 mg TAB.ER (NF) 10 MG TAB.ER PO SCH (22:14)
[2022-01-23] MEDS: Latanoprost 0.005% 2.5 ml BTL BOTH EYES SCH (22:15)
[2022-01-24] MEDS: Lithium Carbonate ER 450mg TAB PO SCH ×2 (10:12→22:18)
[2022-01-24] MEDS: Gemfibrozil 600 mg PO SCH ×2 (10:12→22:18)
[2022-01-24] MEDS: CMC:Dorzolamide/Timolol OPTH (NF) 10 ML BOT BOTH EYES SCH ×2 (10:14→22:18)
[2022-01-24] MEDS: CMC:Alfuzosin ER 10 mg TAB.ER (NF) 10 MG TAB.ER PO SCH (22:18)
[2022-01-24] MEDS: Latanoprost 0.005% 2.5 ml BTL BOTH EYES SCH (22:18)
[2022-01-25] MEDS: Lithium Carbonate ER 450mg TAB PO SCH ×2 (09:53→23:16)
[2022-01-25] MEDS: Gemfibrozil 600 mg PO SCH ×2 (09:53→23:16)
[2022-01-25] MEDS: CMC:Dorzolamide/Timolol OPTH (NF) 10 ML BOT BOTH EYES SCH ×2 (09:55→23:18)
[2022-01-25] MEDS: CMC:Alfuzosin ER 10 mg TAB.ER (NF) 10 MG TAB.ER PO SCH (23:16)
[2022-01-25] MEDS: Latanoprost 0.005% 2.5 ml BTL BOTH EYES SCH (23:18)
[2022-01-26] MEDS: CMC:Dorzolamide/Timolol OPTH (NF) 10 ML BOT BOTH EYES SCH ×2 (09:15→21:42)
[2022-01-26] MEDS: Gemfibrozil 600 mg PO SCH ×2 (09:16→21:42)
[2022-01-26] MEDS: Lithium Carbonate ER 450mg TAB PO SCH ×2 (09:16→21:41)
[2022-01-26] MEDS: CMC:Alfuzosin ER 10 mg TAB.ER (NF) 10 MG TAB.ER PO SCH (21:42)
[2022-01-26] MEDS: Latanoprost 0.005% 2.5 ml BTL BOTH EYES SCH (21:43)
[2022-01-27] MEDS: Gemfibrozil 600 mg PO SCH ×2 (09:58→21:13)
[2022-01-27] MEDS: Lithium Carbonate ER 450mg TAB PO SCH ×2 (09:58→21:13)
[2022-01-27] MEDS: CMC:Dorzolamide/Timolol OPTH (NF) 10 ML BOT BOTH EYES SCH ×2 (09:59→21:14)
[2022-01-27] MEDS: Latanoprost 0.005% 2.5 ml BTL BOTH EYES SCH (21:13)
[2022-01-27] MEDS: CMC:Alfuzosin ER 10 mg TAB.ER (NF) 10 MG TAB.ER PO SCH (21:14)
[2022-01-28] MEDS: Gemfibrozil 600 mg PO SCH ×2 (09:46→21:01)
[2022-01-28] MEDS: Lithium Carbonate ER 450mg TAB PO SCH ×2 (09:46→21:01)
[2022-01-28] MEDS: CMC:Dorzolamide/Timolol OPTH (NF) 10 ML BOT BOTH EYES SCH ×2 (09:47→20:59)
[2022-01-28] MEDS: Latanoprost 0.005% 2.5 ml BTL BOTH EYES SCH (20:59)
[2022-01-28] MEDS: CMC:Alfuzosin ER 10 mg TAB.ER (NF) 10 MG TAB.ER PO SCH (21:01)
[2022-01-29] MEDS: Lithium Carbonate ER 450mg TAB PO SCH ×2 (10:19→21:06)
[2022-01-29] MEDS: CMC:Dorzolamide/Timolol OPTH (NF) 10 ML BOT BOTH EYES SCH ×2 (10:19→21:06)
[2022-01-29] MEDS: Gemfibrozil 600 mg PO SCH ×2 (10:21→21:06)
[2022-01-29] MEDS: CMC:Alfuzosin ER 10 mg TAB.ER (NF) 10 MG TAB.ER PO SCH (21:05)
[2022-01-29] MEDS: Latanoprost 0.005% 2.5 ml BTL BOTH EYES SCH (21:06)
[2022-01-30] MEDS: Lithium Carbonate ER 450mg TAB PO SCH ×2 (09:04→21:11)
[2022-01-30] MEDS: CMC:Dorzolamide/Timolol OPTH (NF) 10 ML BOT BOTH EYES SCH ×2 (09:04→21:15)
[2022-01-30] MEDS: Gemfibrozil 600 mg PO SCH ×2 (09:04→21:13)
[2022-01-30] MEDS: CMC:Alfuzosin ER 10 mg TAB.ER (NF) 10 MG TAB.ER PO SCH (21:12)
[2022-01-30] MEDS: Latanoprost 0.005% 2.5 ml BTL BOTH EYES SCH (21:15)
[2022-01-31] MEDS: CMC:Dorzolamide/Timolol OPTH (NF) 10 ML BOT BOTH EYES SCH ×2 (09:30→21:59)
[2022-01-31] MEDS: Lithium Carbonate ER 450mg TAB PO SCH ×2 (09:32→21:59)
[2022-01-31] MEDS: Gemfibrozil 600 mg PO SCH ×2 (09:32→21:58)
[2022-01-31] MEDS: CMC:Alfuzosin ER 10 mg TAB.ER (NF) 10 MG TAB.ER PO SCH (21:58)
[2022-01-31] MEDS: Latanoprost 0.005% 2.5 ml BTL BOTH EYES SCH (21:59)
[2022-02-01] MEDS: Lithium Carbonate ER 450mg TAB PO SCH ×2 (09:26→20:45)
[2022-02-01] MEDS: CMC:Dorzolamide/Timolol OPTH (NF) 10 ML BOT BOTH EYES SCH ×2 (09:27→20:50)
[2022-02-01] MEDS: Gemfibrozil 600 mg PO SCH ×2 (09:27→20:45)
[2022-02-01] MEDS: CMC:Alfuzosin ER 10 mg TAB.ER (NF) 10 MG TAB.ER PO SCH (20:45)
[2022-02-01] MEDS: Latanoprost 0.005% 2.5 ml BTL BOTH EYES SCH (20:51)
[2022-02-02] MEDS: Lithium Carbonate ER 450mg TAB PO SCH ×2 (09:00→21:12)
[2022-02-02] MEDS: CMC:Dorzolamide/Timolol OPTH (NF) 10 ML BOT BOTH EYES SCH ×2 (09:01→21:10)
[2022-02-02] MEDS: Gemfibrozil 600 mg PO SCH ×2 (09:38→21:11)
[2022-02-02] MEDS: Latanoprost 0.005% 2.5 ml BTL BOTH EYES SCH (21:10)
[2022-02-02] MEDS: CMC:Alfuzosin ER 10 mg TAB.ER (NF) 10 MG TAB.ER PO SCH (21:11)
[2022-02-03] MEDS: CMC:Dorzolamide/Timolol OPTH (NF) 10 ML BOT BOTH EYES SCH ×2 (08:58→21:39)
[2022-02-03] MEDS: Lithium Carbonate ER 450mg TAB PO SCH ×2 (08:58→21:37)
[2022-02-03] MEDS: Gemfibrozil 600 mg PO SCH ×2 (08:59→21:39)
[2022-02-03] MEDS: CMC:Alfuzosin ER 10 mg TAB.ER (NF) 10 MG TAB.ER PO SCH (21:38)
[2022-02-03] MEDS: Latanoprost 0.005% 2.5 ml BTL BOTH EYES SCH (21:39)
[2022-02-04] MEDS: Lithium Carbonate ER 450mg TAB PO SCH ×2 (09:26→21:09)
[2022-02-04] MEDS: Gemfibrozil 600 mg PO SCH ×2 (09:26→21:09)
[2022-02-04] MEDS: CMC:Dorzolamide/Timolol OPTH (NF) 10 ML BOT BOTH EYES SCH ×2 (09:29→21:10)
[2022-02-04] MEDS: Latanoprost 0.005% 2.5 ml BTL BOTH EYES SCH (21:09)
[2022-02-04] MEDS: CMC:Alfuzosin ER 10 mg TAB.ER (NF) 10 MG TAB.ER PO SCH (21:10)
[2022-02-05] MEDS: CMC:Dorzolamide/Timolol OPTH (NF) 10 ML BOT BOTH EYES SCH ×2 (08:41→22:19)
[2022-02-05] MEDS: Lithium Carbonate ER 450mg TAB PO SCH ×2 (08:43→22:19)
[2022-02-05] MEDS: Gemfibrozil 600 mg PO SCH ×2 (08:43→22:18)
[2022-02-05] MEDS: CMC:Alfuzosin ER 10 mg TAB.ER (NF) 10 MG TAB.ER PO SCH (22:18)
[2022-02-05] MEDS: Latanoprost 0.005% 2.5 ml BTL BOTH EYES SCH (22:19)
[2022-02-06] MEDS: CMC:Dorzolamide/Timolol OPTH (NF) 10 ML BOT BOTH EYES SCH ×2 (08:39→21:16)
[2022-02-06] MEDS: Lithium Carbonate ER 450mg TAB PO SCH ×2 (08:39→21:15)
[2022-02-06] MEDS: Gemfibrozil 600 mg PO SCH ×2 (08:40→21:16)
[2022-02-06] MEDS: Latanoprost 0.005% 2.5 ml BTL BOTH EYES SCH (21:16)
[2022-02-06] MEDS: CMC:Alfuzosin ER 10 mg TAB.ER (NF) 10 MG TAB.ER PO SCH (21:17)
[2022-02-07] MEDS: CMC:Dorzolamide/Timolol OPTH (NF) 10 ML BOT BOTH EYES SCH ×2 (09:19→21:56)
[2022-02-07] MEDS: Lithium Carbonate ER 450mg TAB PO SCH ×2 (09:19→21:55)
[2022-02-07] MEDS: Gemfibrozil 600 mg PO SCH ×2 (09:20→21:56)
[2022-02-07] MEDS: CMC:Alfuzosin ER 10 mg TAB.ER (NF) 10 MG TAB.ER PO SCH (21:55)
[2022-02-07] MEDS: Latanoprost 0.005% 2.5 ml BTL BOTH EYES SCH (21:56)
[2022-02-08] MEDS: CMC:Dorzolamide/Timolol OPTH (NF) 10 ML BOT BOTH EYES SCH ×2 (07:56→21:19)
[2022-02-08] MEDS: Gemfibrozil 600 mg PO SCH ×2 (08:00→21:19)
[2022-02-08] MEDS: Lithium Carbonate ER 450mg TAB PO SCH ×2 (08:00→21:19)
[2022-02-08] MEDS: CMC:Alfuzosin ER 10 mg TAB.ER (NF) 10 MG TAB.ER PO SCH (21:19)
[2022-02-08] MEDS: Latanoprost 0.005% 2.5 ml BTL BOTH EYES SCH (21:19)
[2022-02-09] MEDS: CMC:Dorzolamide/Timolol OPTH (NF) 10 ML BOT BOTH EYES SCH ×2 (09:45→22:14)
[2022-02-09] MEDS: Lithium Carbonate ER 450mg TAB PO SCH ×2 (09:46→22:13)
[2022-02-09] MEDS: Gemfibrozil 600 mg PO SCH ×2 (09:47→22:14)
[2022-02-09] MEDS: CMC:Alfuzosin ER 10 mg TAB.ER (NF) 10 MG TAB.ER PO SCH (22:15)
[2022-02-09] MEDS: Latanoprost 0.005% 2.5 ml BTL BOTH EYES SCH (22:15)
[2022-02-10] MEDS: Gemfibrozil 600 mg PO SCH ×2 (09:32→20:37)
[2022-02-10] MEDS: Lithium Carbonate ER 450mg TAB PO SCH ×2 (09:32→20:34)
[2022-02-10] MEDS: CMC:Dorzolamide/Timolol OPTH (NF) 10 ML BOT BOTH EYES SCH ×2 (09:34→20:36)
[2022-02-10] MEDS: CMC:Alfuzosin ER 10 mg TAB.ER (NF) 10 MG TAB.ER PO SCH (20:36)
[2022-02-10] MEDS: Latanoprost 0.005% 2.5 ml BTL BOTH EYES SCH (20:36)
[2022-02-11] MEDS: Gemfibrozil 600 mg PO SCH ×2 (08:16→21:26)
[2022-02-11] MEDS: Lithium Carbonate ER 450mg TAB PO SCH ×2 (08:16→21:26)
[2022-02-11] MEDS: CMC:Dorzolamide/Timolol OPTH (NF) 10 ML BOT BOTH EYES SCH ×2 (08:17→21:30)
[2022-02-11] MEDS: CMC:Alfuzosin ER 10 mg TAB.ER (NF) 10 MG TAB.ER PO SCH (21:25)
[2022-02-11] MEDS: Latanoprost 0.005% 2.5 ml BTL BOTH EYES SCH (21:29)
[2022-02-12] MEDS: Lithium Carbonate ER 450mg TAB PO SCH ×2 (08:29→20:48)
[2022-02-12] MEDS: Gemfibrozil 600 mg PO SCH ×2 (08:29→20:48)
[2022-02-12] MEDS: CMC:Dorzolamide/Timolol OPTH (NF) 10 ML BOT BOTH EYES SCH ×2 (08:30→20:47)
[2022-02-12] MEDS: Latanoprost 0.005% 2.5 ml BTL BOTH EYES SCH (20:46)
[2022-02-12] MEDS: CMC:Alfuzosin ER 10 mg TAB.ER (NF) 10 MG TAB.ER PO SCH (20:47)
[2022-02-13] MEDS: CMC:Dorzolamide/Timolol OPTH (NF) 10 ML BOT BOTH EYES SCH ×2 (08:59→21:01)
[2022-02-13] MEDS: Lithium Carbonate ER 450mg TAB PO SCH ×2 (09:01→20:58)
[2022-02-13] MEDS: Gemfibrozil 600 mg PO SCH ×2 (09:01→21:00)
[2022-02-13] MEDS: CMC:Alfuzosin ER 10 mg TAB.ER (NF) 10 MG TAB.ER PO SCH (21:00)
[2022-02-13] MEDS: Latanoprost 0.005% 2.5 ml BTL BOTH EYES SCH (21:00)
[2022-02-14] MEDS: Lithium Carbonate ER 450mg TAB PO SCH ×2 (07:24→20:40)
[2022-02-14] MEDS: Gemfibrozil 600 mg PO SCH ×2 (07:25→20:38)
[2022-02-14] MEDS: CMC:Dorzolamide/Timolol OPTH (NF) 10 ML BOT BOTH EYES SCH ×2 (07:26→20:40)
[2022-02-14] MEDS: Latanoprost 0.005% 2.5 ml BTL BOTH EYES SCH (20:40)
[2022-02-14] MEDS: CMC:Alfuzosin ER 10 mg TAB.ER (NF) 10 MG TAB.ER PO SCH (20:42)
[2022-02-15] MEDS: Gemfibrozil 600 mg PO SCH ×2 (09:20→21:52)
[2022-02-15] MEDS: CMC:Dorzolamide/Timolol OPTH (NF) 10 ML BOT BOTH EYES SCH ×2 (09:20→21:55)
[2022-02-15] MEDS: Lithium Carbonate ER 450mg TAB PO SCH ×2 (09:20→21:52)
[2022-02-15] MEDS: CMC:Alfuzosin ER 10 mg TAB.ER (NF) 10 MG TAB.ER PO SCH (21:52)
[2022-02-15] MEDS: Latanoprost 0.005% 2.5 ml BTL BOTH EYES SCH (21:55)
[2022-02-16] MEDS: Lithium Carbonate ER 450mg TAB PO SCH ×2 (08:20→21:58)
[2022-02-16] MEDS: CMC:Dorzolamide/Timolol OPTH (NF) 10 ML BOT BOTH EYES SCH ×2 (08:21→22:01)
[2022-02-16] MEDS: Gemfibrozil 600 mg PO SCH ×2 (08:21→21:58)
[2022-02-16] MEDS: CMC:Alfuzosin ER 10 mg TAB.ER (NF) 10 MG TAB.ER PO SCH (21:58)
[2022-02-16] MEDS: Latanoprost 0.005% 2.5 ml BTL BOTH EYES SCH (22:01)
[2022-02-17] MEDS: CMC:Dorzolamide/Timolol OPTH (NF) 10 ML BOT BOTH EYES SCH ×2 (09:17→22:06)
[2022-02-17] MEDS: Gemfibrozil 600 mg PO SCH ×2 (09:19→22:02)
[2022-02-17] MEDS: Lithium Carbonate ER 450mg TAB PO SCH ×2 (09:19→22:02)
[2022-02-17] MEDS: CMC:Alfuzosin ER 10 mg TAB.ER (NF) 10 MG TAB.ER PO SCH (22:02)
[2022-02-17] MEDS: Latanoprost 0.005% 2.5 ml BTL BOTH EYES SCH (22:04)
[2022-02-18] MEDS: Gemfibrozil 600 mg PO SCH ×2 (09:03→22:42)
[2022-02-18] MEDS: Lithium Carbonate ER 450mg TAB PO SCH ×2 (09:03→22:41)
[2022-02-18] MEDS: CMC:Dorzolamide/Timolol OPTH (NF) 10 ML BOT BOTH EYES SCH ×2 (09:04→22:44)
[2022-02-18] MEDS: CMC:Alfuzosin ER 10 mg TAB.ER (NF) 10 MG TAB.ER PO SCH (22:41)
[2022-02-18] MEDS: Latanoprost 0.005% 2.5 ml BTL BOTH EYES SCH (22:45)
[2022-02-19] MEDS: Gemfibrozil 600 mg PO SCH ×2 (09:22→22:04)
[2022-02-19] MEDS: Lithium Carbonate ER 450mg TAB PO SCH ×2 (09:22→22:04)
[2022-02-19] MEDS: CMC:Dorzolamide/Timolol OPTH (NF) 10 ML BOT BOTH EYES SCH ×2 (09:23→22:08)
[2022-02-19] MEDS: CMC:Alfuzosin ER 10 mg TAB.ER (NF) 10 MG TAB.ER PO SCH (22:05)
[2022-02-19] MEDS: Latanoprost 0.005% 2.5 ml BTL BOTH EYES SCH (22:07)
[2022-02-20] MEDS: Gemfibrozil 600 mg PO SCH ×2 (08:02→21:48)
[2022-02-20] MEDS: Lithium Carbonate ER 450mg TAB PO SCH ×2 (08:03→21:48)
[2022-02-20] MEDS: CMC:Dorzolamide/Timolol OPTH (NF) 10 ML BOT BOTH EYES SCH ×2 (08:04→21:51)
[2022-02-20] MEDS: CMC:Alfuzosin ER 10 mg TAB.ER (NF) 10 MG TAB.ER PO SCH (21:48)
[2022-02-20] MEDS: Latanoprost 0.005% 2.5 ml BTL BOTH EYES SCH (21:51)
[2022-02-21] MEDS: Lithium Carbonate ER 450mg TAB PO SCH ×2 (09:20→21:56)
[2022-02-21] MEDS: CMC:Dorzolamide/Timolol OPTH (NF) 10 ML BOT BOTH EYES SCH ×2 (09:20→22:00)
[2022-02-21] MEDS: Gemfibrozil 600 mg PO SCH ×2 (09:20→21:56)
[2022-02-21] MEDS: CMC:Alfuzosin ER 10 mg TAB.ER (NF) 10 MG TAB.ER PO SCH (21:55)
[2022-02-21] MEDS: Latanoprost 0.005% 2.5 ml BTL BOTH EYES SCH (21:58)
[2022-02-22] MEDS: Gemfibrozil 600 mg PO SCH ×2 (09:30→20:24)
[2022-02-22] MEDS: Lithium Carbonate ER 450mg TAB PO SCH ×2 (09:30→20:24)
[2022-02-22] MEDS: CMC:Dorzolamide/Timolol OPTH (NF) 10 ML BOT BOTH EYES SCH ×2 (09:32→20:24)
[2022-02-22] MEDS: Lurasidone 120 mg TAB PO SCH (17:26)
[2022-02-22] MEDS: CMC:Alfuzosin ER 10 mg TAB.ER (NF) 10 MG TAB.ER PO SCH (20:23)
[2022-02-22] MEDS: Latanoprost 0.005% 2.5 ml BTL BOTH EYES SCH (20:23)
[2022-02-23] MEDS: Lithium Carbonate ER 450mg TAB PO SCH ×2 (09:37→21:37)
[2022-02-23] MEDS: Gemfibrozil 600 mg PO SCH ×2 (09:37→21:36)
[2022-02-23] MEDS: CMC:Dorzolamide/Timolol OPTH (NF) 10 ML BOT BOTH EYES SCH ×2 (09:40→21:37)
[2022-02-23] MEDS: Lurasidone 120 mg TAB PO SCH (17:58)
[2022-02-23] MEDS: CMC:Alfuzosin ER 10 mg TAB.ER (NF) 10 MG TAB.ER PO SCH (21:36)
[2022-02-23] MEDS: Latanoprost 0.005% 2.5 ml BTL BOTH EYES SCH (21:36)
[2022-02-24] MEDS: CMC:Dorzolamide/Timolol OPTH (NF) 10 ML BOT BOTH EYES SCH ×2 (09:06→22:30)
[2022-02-24] MEDS: Gemfibrozil 600 mg PO SCH ×2 (09:06→21:34)
[2022-02-24] MEDS: Lithium Carbonate ER 450mg TAB PO SCH ×2 (09:07→21:35)
[2022-02-24] MEDS: Lurasidone 120 mg TAB PO SCH (17:02)
[2022-02-24] MEDS: CMC:Alfuzosin ER 10 mg TAB.ER (NF) 10 MG TAB.ER PO SCH (21:34)
[2022-02-24] MEDS: Latanoprost 0.005% 2.5 ml BTL BOTH EYES SCH (22:29)
[2022-02-25] MEDS: Lithium Carbonate ER 450mg TAB PO SCH ×2 (10:04→21:05)
[2022-02-25] MEDS: CMC:Dorzolamide/Timolol OPTH (NF) 10 ML BOT BOTH EYES SCH ×2 (10:04→21:06)
[2022-02-25] MEDS: Gemfibrozil 600 mg PO SCH ×2 (10:04→21:09)
[2022-02-25] MEDS: Lurasidone 120 mg TAB PO SCH (17:22)
[2022-02-25] MEDS: Latanoprost 0.005% 2.5 ml BTL BOTH EYES SCH (21:07)
[2022-02-25] MEDS: CMC:Alfuzosin ER 10 mg TAB.ER (NF) 10 MG TAB.ER PO SCH (21:08)
[2022-02-26 08:10] VITALS: BP 104/70
[2022-02-26] MEDS: Gemfibrozil 600 mg PO SCH (08:43)
[2022-02-26] MEDS: CMC:Dorzolamide/Timolol OPTH (NF) 10 ML BOT BOTH EYES SCH (08:43)
[2022-02-26] MEDS: Lithium Carbonate ER 450mg TAB PO SCH (08:43)
== END 2022-02-26 15:35 | disposition home or self-care (01) | DRG 885 ==
LOC: ED 11:00 → BSU 17:49
PROVIDERS: ADMIT Psychiatry & Neurology Psychiatry; ATTEND Psychiatry & Neurology Psychiatry

== ENCOUNTER 2023-10-04 18:33 | Inpatient (IN) ==
[2023-10-04] MEDS: Haloperidol 5 mg/ml SDV IV/IM 5 MG/ML AMP IM ONE (19:11)
[2023-10-04] MEDS: Midazolam 5 mg/ml concentrated 5 mg/ml 1 ml VIAL ONE (19:11)
[2023-10-04] MEDS: Midazolam 5 mg/5 ml VIAL 1 mg/ml 5 ml VIAL (5 mg) IV SLOW PU ONE (19:13)
[2023-10-04 20:12] LABS: Urine Appearance Clear; Urine Bilirubin Negative (Negative); Urine Blood Negative (Negative); Urine Color Colorless; Urine Glucose Negative (Negative); Urine Ketones Negative (Negative); Urine Nitrite Negative (Negative); Urine Protein Negative (Negative); Urine Specific Gravity 1.006 (1.002-1.030); Urine Urobilinogen Negative (Negative)
[2023-10-04 20:14] LABS: ABS Basophils 0.1 10^3/uL (0.0-0.1); ABS Eosinophils 0.3 10^3/uL (0.0-0.5); ABS Lymphocytes 2.4 10^3/uL (1.0-4.8); ABS Monocytes 0.6 10^3/uL (0.0-1.1); ABS Neutrophils 5.2 10^3/uL (1.5-7.6); ABS Nucleated RBC 0.01 10^3/ul; Eosinophil % 3.8 %; Hematocrit 39.4 % (38-53); Hemoglobin 13.4 g/dL (13.2-16.3); Lymphocyte % 28.4 %; Mean Corpuscular Hemoglobin 29.4 pg (27-33); Mean Corpuscular Hgb Conc 34.1 g/dL (31-36); Mean Corpuscular Volume 86.1 fL (80-97); Mean Platelet Volume 7.3 fL (7.5-11.2); Nucleated Red Blood Cells % 0.1 %/100WBC (0.0-0.8); Platelet Count 246 10^3/uL (150-450); Red Blood Count 4.58 10^6/uL (4.06-5.63); Red Cell Distribution Width 14.8 % (12-17); White Blood Count 8.6 10^3/uL (3.6-10.2)
[2023-10-04 20:34] LABS: Urine Benzodiazepine Screen Presumptive Positive (None Detect); Urine Cannabinoids Screen None Detected (None Detect); Urine Opiates Screen None Detected (None Detect)
[2023-10-04 21:20] LABS: ALT 15 U/L (7-52); AST 20 U/L (13-39); Acetaminophen < 15 mcg/mL; Albumin 4.4 g/dL (3.2-5.2); Alcohol, S 258 mg/dL (<13); Alkaline Phosphatase 106 U/L (35-149); Anion Gap 15 mmol/L (2-16); Blood Urea Nitrogen 10 mg/dL (6-24); CO2 Carbon Dioxide 18 mmol/L (22-32); Calcium 8.7 mg/dL (8.6-10.3); Chloride 110 mmol/L (101-111); Creatinine, Serum 0.82 mg/dL (0.67-1.17); Globulin 2.2 g/dL (2-4); Glucose 184 mg/dL (70-100); Potassium 4.6 mmol/L (3.5-5.0); Salicylate < 2.50 mg/dL (<30); Sodium 143 mmol/L (135-145); Total Bilirubin 0.2 mg/dL (0.2-1.0); Total Protein 6.6 g/dL (6.4-8.9); eGFR CKD-EPI 101.2 (>60)
[2023-10-04 21:34] LABS: TSH Ultra Thyroid Stim Horm 2.49 mcIU/mL (0.34-5.60)
[2023-10-05] MEDS ORDERED: Al Hydrox/Mg Hydrox/Simet LIQ 30 ML UDC PO PRN (05:00)
[2023-10-05] MEDS: Vitamin THERAPEUTIC TAB PO SCH (10:21)
[2023-10-05] MEDS ORDERED: Albuterol HFA INHALER 8 gm MDI INH PRN (11:41)
[2023-10-05] MEDS: CMCS:Alfuzosin ER 10 mg TAB.ER (NF) 10 MG TAB.ER PO SCH (18:09)
[2023-10-05] MEDS: Lithium Carbonate ER 450mg TAB PO SCH (18:09)
[2023-10-05] MEDS: Gemfibrozil 600 mg PO SCH (18:09)
[2023-10-05] MEDS: CMCS: Dorzolamide/Timolol OPTH (NF) 10 ML BOT BOTH EYES SCH (18:11)
[2023-10-05] MEDS: Latanoprost 0.005% 2.5 ml BTL BOTH EYES SCH (18:11)
[2023-10-06] MEDS: Fluticasone NASAL SPRAY 50MCG 16 gm SPRAY BTL BOTH NARES SCH (10:10)
[2023-10-07 08:42] LABS: HDL Cholesterol 54.1 mg/dL
[2023-10-07] MEDS: BRIMONIDINE 0.2% RIGHT EYE SCH ×2 (10:55→19:32)
[2023-10-07] MEDS: CMCS: Dorzolamide/Timolol OPTH (NF) 10 ML BOT BOTH EYES SCH (19:28)
[2023-10-07] MEDS: Gemfibrozil 600 mg PO SCH (19:30)
[2023-10-07] MEDS: Lithium Carbonate ER 450mg TAB PO SCH (19:30)
[2023-10-10 19:49] LABS: ABS Basophils 0.1 10^3/uL (0.0-0.1); ABS Eosinophils 0.3 10^3/uL (0.0-0.5); ABS Lymphocytes 2.1 10^3/uL (1.0-4.8); ABS Monocytes 0.9 10^3/uL (0.0-1.1); ABS Neutrophils 7.9 10^3/uL (1.5-7.6); Eosinophil % 2.5 %; Hematocrit 38.1 % (38-53); Hemoglobin 12.9 g/dL (13.2-16.3); Lymphocyte % 18.8 %; Mean Corpuscular Hemoglobin 29.1 pg (27-33); Mean Corpuscular Hgb Conc 33.9 g/dL (31-36); Mean Corpuscular Volume 85.8 fL (80-97); Mean Platelet Volume 7.9 fL (7.5-11.2); Platelet Count 233 10^3/uL (150-450); Red Blood Count 4.43 10^6/uL (4.06-5.63); Red Cell Distribution Width 14.9 % (12-17); White Blood Count 11.2 10^3/uL (3.6-10.2)
[2023-10-12 08:32] VITALS: BP 121/77
[2023-10-13 23:50] LABS: Clozapine 535 ng/mL (350-600); Clozapine & Norclozapine Level 738 ng/mL; Norclozapine 203 ng/mL
== END 2023-10-12 13:28 | disposition home or self-care (01) | DRG 885 ==
LOC: ED 18:33 → EDHOLD 10-05 05:39 → BSU 10-05 07:23
PROVIDERS: ADMIT Psychiatry & Neurology Psychiatry; ATTEND Psychiatry & Neurology Psychiatry

== ENCOUNTER 2023-10-26 17:09 | Inpatient (IN) ==
[2023-10-26 18:18] LABS: ABS Basophils 0.1 10^3/uL (0.0-0.1); ABS Eosinophils 0.3 10^3/uL (0.0-0.5); ABS Lymphocytes 2.9 10^3/uL (1.0-4.8); ABS Monocytes 0.4 10^3/uL (0.0-1.1); ABS Neutrophils 6.8 10^3/uL (1.5-7.6); ABS Nucleated RBC 0.01 10^3/ul; Eosinophil % 2.5 %; Hematocrit 39.9 % (38-53); Hemoglobin 13.9 g/dL (13.2-16.3); Lymphocyte % 27.5 %; Mean Corpuscular Hemoglobin 29.9 pg (27-33); Mean Corpuscular Hgb Conc 34.8 g/dL (31-36); Mean Platelet Volume 7.4 fL (7.5-11.2); Platelet Count 341 10^3/uL (150-450); Red Blood Count 4.64 10^6/uL (4.06-5.63); Red Cell Distribution Width 15.4 % (12-17); White Blood Count 10.4 10^3/uL (3.6-10.2)
[2023-10-26 18:53] LABS: ALT 18 U/L (7-52); AST 17 U/L (13-39); Acetaminophen < 15 mcg/mL; Albumin 4.8 g/dL (3.2-5.2); Albumin/Globulin Ratio 1.8 (1-3); Alcohol, S 180 mg/dL (<13); Alkaline Phosphatase 104 U/L (35-149); Anion Gap 15 mmol/L (2-16); Blood Urea Nitrogen 21 mg/dL (6-24); CO2 Carbon Dioxide 17 mmol/L (22-32); Calcium 9.7 mg/dL (8.6-10.3); Chloride 110 mmol/L (101-111); Creatinine, Serum 0.84 mg/dL (0.67-1.17); Globulin 2.6 g/dL (2-4); Glucose 99 mg/dL (70-100); Potassium 4.4 mmol/L (3.5-5.0); Salicylate < 2.50 mg/dL (<30); Sodium 142 mmol/L (135-145); Total Bilirubin 0.3 mg/dL (0.2-1.0); Total Protein 7.4 g/dL (6.4-8.9); eGFR CKD-EPI 100.5 (>60)
[2023-10-26 19:02] LABS: TSH Ultra Thyroid Stim Horm 0.69 mcIU/mL (0.34-5.60)
[2023-10-26] MEDS: Ondansetron ODT 4 mg TAB 4 MG TAB SL ONE (22:20)
[2023-10-26 22:32] LABS: Urine Benzodiazepine Screen None Detected (None Detect); Urine Cannabinoids Screen None Detected (None Detect); Urine Opiates Screen None Detected (None Detect)
[2023-10-27] MEDS ORDERED: Al Hydrox/Mg Hydrox/Simet LIQ 30 ML UDC PO PRN (00:56)
[2023-10-27] MEDS ORDERED: Nicotine GUM 2MG FRUIT FLAVOR PO PRN (01:00)
[2023-10-27] MEDS ORDERED: LORazepam PO 0-6 for WAM protocol PO SCH (01:00)
[2023-10-27] MEDS: Nicotine PATCH 21 MG/24 HR PATCH TRANSDERM SCH (09:40)
[2023-10-27] MEDS: Vitamin THERAPEUTIC TAB PO SCH (09:41)
[2023-10-27] MEDS ORDERED: Albuterol HFA INHALER 8 gm MDI INH PRN (12:49)
[2023-10-27] MEDS: Alfuzosin ER 10 mg TAB.ER (NF) 10 MG TAB.ER PO SCH (18:43)
[2023-10-27] MEDS: Lithium Carbonate ER 450mg TAB PO SCH (18:44)
[2023-10-27] MEDS: Gemfibrozil 600 mg PO SCH (18:44)
[2023-10-27] MEDS: CMCS:Dorzolamide/Timolol OPTH (NF) 10 ML BOT BOTH EYES SCH (18:47)
[2023-10-27] MEDS: Latanoprost 0.005% 2.5 ml BTL BOTH EYES SCH (18:50)
[2023-10-27] MEDS ORDERED: BIMATOPROST 0.01% BOTH EYES SCH (21:00)
[2023-10-28] MEDS: Fluticasone NASAL SPRAY 50MCG 16 gm SPRAY BTL BOTH NARES SCH (08:49)
[2023-11-02 08:44] LABS: ABS Basophils 0.1 10^3/uL (0.0-0.1); ABS Eosinophils 0.2 10^3/uL (0.0-0.5); ABS Lymphocytes 1.3 10^3/uL (1.0-4.8); ABS Monocytes 0.8 10^3/uL (0.0-1.1); ABS Neutrophils 7.5 10^3/uL (1.5-7.6); Eosinophil % 1.9 %; Hematocrit 43.5 % (38-53); Hemoglobin 14.3 g/dL (13.2-16.3); Lymphocyte % 13.4 %; Mean Corpuscular Hemoglobin 28.7 pg (27-33); Mean Corpuscular Hgb Conc 32.9 g/dL (31-36); Mean Corpuscular Volume 87.1 fL (80-97); Mean Platelet Volume 8.1 fL (7.5-11.2); Platelet Count 267 10^3/uL (150-450); Red Cell Distribution Width 14.9 % (12-17); White Blood Count 9.9 10^3/uL (3.6-10.2)
[2023-11-10 11:37] LABS: ABS Basophils 0.1 10^3/uL (0.0-0.1); ABS Eosinophils 0.3 10^3/uL (0.0-0.5); ABS Lymphocytes 1.7 10^3/uL (1.0-4.8); ABS Monocytes 0.6 10^3/uL (0.0-1.1); ABS Neutrophils 7.6 10^3/uL (1.5-7.6); Hematocrit 40.6 % (38-53); Hemoglobin 13.6 g/dL (13.2-16.3); Lymphocyte % 16.3 %; Mean Corpuscular Hemoglobin 28.8 pg (27-33); Mean Corpuscular Hgb Conc 33.6 g/dL (31-36); Mean Corpuscular Volume 85.7 fL (80-97); Mean Platelet Volume 7.4 fL (7.5-11.2); Platelet Count 258 10^3/uL (150-450); Red Blood Count 4.74 10^6/uL (4.06-5.63); White Blood Count 10.3 10^3/uL (3.6-10.2)
[2023-11-17 12:12] LABS: ABS Basophils 0.1 10^3/uL (0.0-0.1); ABS Eosinophils 0.4 10^3/uL (0.0-0.5); ABS Lymphocytes 1.7 10^3/uL (1.0-4.8); ABS Monocytes 0.8 10^3/uL (0.0-1.1); ABS Neutrophils 6.1 10^3/uL (1.5-7.6); ABS Nucleated RBC 0.01 10^3/ul; Eosinophil % 4.1 %; Hematocrit 39.6 % (38-53); Hemoglobin 13.5 g/dL (13.2-16.3); Lymphocyte % 18.6 %; Mean Corpuscular Hemoglobin 29.5 pg (27-33); Mean Corpuscular Hgb Conc 34.1 g/dL (31-36); Mean Corpuscular Volume 86.3 fL (80-97); Mean Platelet Volume 7.4 fL (7.5-11.2); Nucleated Red Blood Cells % 0.1 %/100WBC (0.0-0.8); Platelet Count 308 10^3/uL (150-450); Red Blood Count 4.58 10^6/uL (4.06-5.63); Red Cell Distribution Width 14.9 % (12-17); White Blood Count 9.1 10^3/uL (3.6-10.2)
[2023-11-24 19:04] LABS: ABS Basophils 0.2 10^3/uL (0.0-0.1); ABS Eosinophils 0.4 10^3/uL (0.0-0.5); ABS Lymphocytes 1.8 10^3/uL (1.0-4.8); ABS Neutrophils 10.6 10^3/uL (1.5-7.6); ABS Nucleated RBC 0.01 10^3/ul; Hemoglobin 13.3 g/dL (13.2-16.3); Lymphocyte % 12.7 %; Mean Corpuscular Hemoglobin 28.5 pg (27-33); Mean Corpuscular Hgb Conc 32.5 g/dL (31-36); Mean Corpuscular Volume 87.6 fL (80-97); Mean Platelet Volume 8.1 fL (7.5-11.2); Platelet Count 285 10^3/uL (150-450); Red Blood Count 4.68 10^6/uL (4.06-5.63); Red Cell Distribution Width 14.6 % (12-17)
[2023-11-25 10:30] VITALS: BP 132/79
== END 2023-11-25 10:50 | disposition short-term general hospital (02) | DRG 885 ==
LOC: ED 17:09 → EDHOLD 10-27 00:12 → BSU 10-27 00:29
PROVIDERS: ADMIT Student in an Organized Health Care Education/Training Program; ATTEND Psychiatry & Neurology Psychiatry